=== PATIENT | female | born 1985 | race Caucasian/White ===

== ENCOUNTER 2019-11-28 01:46 | Emergency (ER) | payer BC, SELFPAY ==
[2019-11-28] MEDS ORDERED: LIDOCAINE JELLY 2%- 5 ML TUBE ONE (02:51)
[2019-11-28] MEDS ORDERED: LIDOCAINE VISCOUS 2% SOLN 15 ML UDC ONE (02:51)
[2019-11-28] MEDS ORDERED: LIDOCAINE 1% 20 ML MDV ONE (03:21)
--- NOTE | 2019-11-28 03:56 | EDPHYS ---
Physician Documentation [facility] Name: Alem Conte Age: 34 yrs Sex: Female : 1985 Arrival Date: 11/28/2019 Time: 01:50 Bed 3 Private MD: Rod Womack E ED Physician Donald Morales HPI: 11/27 02:58 This 34 yrs old Female presents to ER via Ambulatory with complaints of Lip mh7 Injury. 02:58 The patient presents with pain, Accidentally got hit in mouth while lifting a large mh7 tire. The problem is located in the inner upper lip. Onset: The symptoms/episode began/occurred today. Duration: The symptoms are continuous, and are unchanged since they started. Modifying factors: The symptoms are alleviated by nothing, the symptoms are aggravated by talking. Associated signs and symptoms: Pertinent positives: pain. Severity of symptoms: At their worst the symptoms were moderate, just prior to arrival, earlier today, in the emergency department the symptoms are unchanged. 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 - Social history:: Smoking status: Patient denies any tobacco usage or history of. ROS: 02:58 Constitutional: Negative for fever, chills, and weight loss, Eyes: Negative for injury, mh7 pain, redness, and discharge, Neck: Negative for injury, pain, and swelling, Cardiovascular: Negative for chest pain, palpitations, and edema, Respiratory: Negative for shortness of breath, cough, wheezing, and pleuritic chest pain, Abdomen/GI: Negative for abdominal pain, nausea, vomiting, diarrhea, and constipation, Back: Negative for injury and pain, : Negative for injury, bleeding, discharge, and swelling, MS/Extremity: Negative for injury and deformity, Skin: Negative for injury, rash, and discoloration, Neuro: Negative for headache, weakness, numbness, tingling, and seizure, Psych: Negative for depression, anxiety, suicide ideation, homicidal ideation, and hallucinations, Allergy/Immunology: Negative for hives, rash, and allergies, Endocrine: Negative for neck swelling, polydipsia, polyuria, polyphagia, and marked weight changes, Hematologic/Lymphatic: Negative for swollen nodes, abnormal bleeding, and unusual bruising. Exam: 02:58 Constitutional: This is a well developed, well nourished patient who is awake, alert, mh7 and in no acute distress. 02:58 Eyes: Pupils equal round and reactive to light, extra-ocular motions intact. Lids and lashes normal. Conjunctiva and sclera are non-icteric and not injected. Cornea within normal limits. Periorbital areas with no swelling, redness, or edema. Neck: Trachea midline, no thyromegaly or masses palpated, and no cervical lymphadenopathy. Supple, full range of motion without nuchal rigidity, or vertebral point tenderness. No Meningismus. Chest/axilla: Normal chest wall appearance and motion. Nontender with no deformity. No lesions are appreciated. Cardiovascular: Regular rate and rhythm with a normal S1 and S2. No gallops, murmurs, or rubs. Normal PMI, no JVD. No pulse deficits. Respiratory: Lungs have equal breath sounds bilaterally, clear to auscultation and percussion. No rales, rhonchi or wheezes noted. No increased work of breathing, no retractions or nasal flaring. Abdomen/GI: Soft, non-tender, with normal bowel sounds. No distension or tympany. No guarding or rebound. No evidence of tenderness throughout. Back: No spinal tenderness. No costovertebral tenderness. Full range of motion. Skin: Warm, dry with normal turgor. Normal color with no rashes, no lesions, and no evidence of cellulitis. MS/ Extremity: Pulses equal, no cyanosis. Neurovascular intact. Full, normal range of motion. Neuro: Awake and alert, GCS 15, oriented to person, place, time, and situation. Cranial nerves II-XII grossly intact. Motor strength 5/5 in all extremities. Sensory grossly intact. Cerebellar exam normal. Normal gait. Psych: Awake, alert, with orientation to person, place and time. Behavior, mood, and affect are within normal limits. 02:58 Head/face: Noted is 03:49 ENT: External ear(s): are unremarkable, Nose: is normal, Mouth: Lips: lacerated, mh7 approximately 1.5 cm(s), upper lip, Oral mucosa: normal, Gums: normal with healthy appearance, Tongue: is normal, Posterior pharynx: is normal, Dental exam: Braces-intact, Voice: is normal. Vital Signs: 02:15 BP 149 / 99; Pulse 110; Resp 18; Temp 99(TE); Pulse Ox 99% on R/A; Weight 81.65 kg (R); lp1 Pain 10/10; 03:00 BP 134 / 90; Pulse 72; Resp 16; Pulse Ox 100% on R/A; jb4 Laceration: 03:49 Wound Repair of 1.5cm ( 0.6in ) subcutaneous laceration to upper lip. Distal mh7 neuro/vascular/tendon intact. Anesthesia: Local anesthetic administered with 4 mls of 1% lidocaine. Wound prep: Simple cleansing by me, Wound irrigation by me. Skin closed with 3 4-0 Vicryl using interrupted sutures and sterile technique. Patient tolerated well. MDM: 02:50 Patient medically screened. 7 03:49 Differential diagnosis: Dental fracture, oral laceration, lip laceration. Data 7 reviewed: vital signs, nurses notes. Data interpreted: Pulse oximetry: on room air is 99 %. Interpretation: normal. Counseling: I had a detailed discussion with the patient and/or guardian regarding: the historical points, exam findings, and any diagnostic results supporting the discharge/admit diagnosis, the need for outpatient follow up, to return to the emergency department if symptoms worsen or persist or if there are any questions or concerns that arise at home. Administered Medications: 03:18 Drug: Lidocaine (1 %) 1 application {Note: Administered by ER physician. .} Volume: 20 jb4 ml; Route: Infiltration; 03:59 Follow up: Response: No adverse reaction jb4 Disposition: 11/28/19 03:55 Discharged to Home. Impression: Lip Laceration-upper. - Condition is Stable. - Discharge Instructions: Mouth Laceration, [id number], Laceration Care, Adult, [id number]. - Medication Reconciliation Form, Thank You Letter, Antibiotic Education, Prescription Opioid Use form. - Follow up: Private Physician; When: 1 - 2 days; Reason: Worsening of condition, Recheck today's complaints, Re-evaluation by your physician. - Problem is new. - Symptoms have improved. Signatures: aHnnah Ken RN RN lp1 Kaleb Swartz RN RN jb4 Donald Morales MD MD mh7 Corrections: (The following items were deleted from the chart) 03:59 03:55 11/28/2019 03:55 Discharged to Home. Impression: Lip Laceration-upper. Condition jb4 is Stable. Forms are Medication Reconciliation Form, Thank You Letter, Antibiotic Education, Prescription Opioid Use. Follow up: Private Physician; When: 1 - 2 days; Reason: Worsening of condition, Recheck today's complaints, Re-evaluation by your physician. Problem is new. Symptoms have improved. mh7
--- NOTE | 2019-11-28 03:56 | ER ---
Nurse's Notes [facility] Name: Alem Conte Age: 34 yrs Sex: Female : 1985 Arrival Date: 11/28/2019 Time: 01:50 Bed 3 Private MD: Rod Womack E Diagnosis: Lip Laceration-upper Presentation: 11/27 02:15 Chief complaint: Patient states: Patient was attempted to flip large tire and came back lp1 and hit her, top lip stuck to braces of front 2 teeth. Coronavirus screen: Proceed with normal triage. Ebola Screen: No symptoms or risks identified at this time. Initial Sepsis Screen: Does the patient meet any 2 criteria? No. Patient's initial sepsis screen is negative. Does the patient have a suspected source of infection? No. Patient's initial sepsis screen is negative. Risk Assessment: Do you want to hurt yourself or someone else? Patient reports no desire to harm self or others. Onset of symptoms was November 28, 2019. 02:15 Method Of Arrival: Ambulatory lp1 02:15 Acuity: EVELIO 4 lp1 Triage Assessment: 02:18 General: Appears in no apparent distress. Behavior is anxious. General: Top inner lip lp1 on brace of front tooth. Pain: Complains of pain in mouth. 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 - Social history:: Smoking status: Patient denies any tobacco usage or history of. Screenin:17 Abuse screen: Denies threats or abuse. Denies injuries from another. Nutritional lp1 screening: No deficits noted. Tuberculosis screening: No symptoms or risk factors identified. Fall Risk None identified. Assessment: 02:45 General: Appears in no apparent distress. uncomfortable, Behavior is calm, cooperative, jb4 appropriate for age. Pain: Complains of pain in mouth Pain does not radiate. Pain currently is 10 out of 10 on a pain scale. Neuro: Level of Consciousness is awake, alert, obeys commands, Oriented to person, place, time, situation. Cardiovascular: Patient's skin is warm and dry. Respiratory: Airway is patent Respiratory effort is even, unlabored, Respiratory pattern is regular, symmetrical. GI: No signs and/or symptoms were reported involving the gastrointestinal system. : No signs and/or symptoms were reported regarding the genitourinary system. EENT: No signs and/or symptoms were reported regarding the EENT system. Derm: Skin is intact, Skin is pink, warm \T\ dry. Musculoskeletal: Circulation, motion, and sensation intact. Range of motion: intact in all extremities. 03:54 Reassessment: Patient appears in no apparent distress at this time. Patient and/or jb4 family updated on plan of care and expected duration. Pain level reassessed. Patient is alert, oriented x 3, equal unlabored respirations, skin warm/dry/pink. Vital Signs: 02:15 BP 149 / 99; Pulse 110; Resp 18; Temp 99(TE); Pulse Ox 99% on R/A; Weight 81.65 kg (R); lp1 Pain 10/10; 03:00 BP 134 / 90; Pulse 72; Resp 16; Pulse Ox 100% on R/A; jb4 ED Course: 01:50 Patient arrived in ED. es 01:50 Rod Womack MD is Private Physician. es 02:16 Triage completed. lp1 02:16 Arm band placed on. lp1 02:18 Patient has correct armband on for positive identification. lp1 02:18 Patient did not have IV access during this emergency room visit. lp1 02:23 Kaleb Swartz RN is Primary Nurse. jb4 02:39 Donald Morales MD is Attending Physician. 7 03:54 Assist provider with laceration repair on upper lip that was 2.5 cm. or less using jb4 sutures. Set up tray. Performed by Rod Womack MD Patient tolerated well. Administered Medications: 03:18 Drug: Lidocaine (1 %) 1 application {Note: Administered by ER physician. .} Volume: 20 jb4 ml; Route: Infiltration; 03:59 Follow up: Response: No adverse reaction jb4 Outcome: 03:55 Discharge ordered by . 7 03:59 Discharged to home ambulatory. jb4 03:59 Condition: stable 03:59 Discharge instructions given to patient, Instructed on discharge instructions, follow up and referral plans. Demonstrated understanding of instructions, follow-up care. 03:59 Patient left the ED. jb4 Signatures: Heidi Fulton Laura RN RN lp1 Kaleb Swartz RN RN jb4 Donald Morales MD MD mh7
[2019-11-28 04:12] VITALS: BP 134/90; O2SAT 100
[2019-11-28 04:14] VITALS: TEMP 99
== END 2019-11-28 03:59 | disposition home or self-care (01) ==
LOC: ER 01:46
PROC: 0CQ0XZZ Repair Upper Lip, External Approach (ICD-10-PCS; principal; 2019-11-28)
DX: S01.511A Laceration without foreign body of lip, initial encounter (principal); W22.8XXA Striking against or struck by other objects, initial encounter; Y93.9 Activity, unspecified; Y92.9 Unspecified place or not applicable; Z88.0 Allergy status to penicillin; Z88.1 Allergy status to other antibiotic agents; F41.9 Anxiety disorder, unspecified
CPT/HCPCS: 99283

== ENCOUNTER 2020-10-26 01:40 | Emergency (ER) | payer SELFPAY ==
--- OUTSIDE RECORDS SUMMARY | 2020-10-26 01:43 | XMS REPORT | Continuity of Care Document ---
:1985 Author Organization [facility] t Address [address] [place] [address] Dr. Schrader [address] [place] [id number] Care Team Providers Name Role Phone Unavailable Unavailable Unavailable Problems This patient has no known problems. Allergies, Adverse Reactions, Alerts This patient has no known allergies or adverse reactions. Medications This patient has no known medications. Procedures This patient has no known procedures. Results This patient has no known results.
[2020-10-26] MEDS ORDERED: ONDANSETRON 4 MG/2 ML VIAL ONE (02:35)
[2020-10-26] MEDS ORDERED: NA CHLORIDE 0.9% 1,000 ML ONE (02:35)
[2020-10-26] MEDS ORDERED: MORPHINE 4 MG/ML SYR ONE (02:35)
[2020-10-26] MEDS ORDERED: CEFTRIAXONE/SWI 1gm 1 GM/10 ML SYR ONE (02:38)
[2020-10-26 02:56] LABS: Absolute Lymphocytes (CBC) 2.4 K/uL (0.7-4.9); Basophils % 0.7 % (0-1.3); Hematocrit 37.4 % (36.0-45.0); Lymphocytes % 34.1 % (15.3-44.8); MPV 9.7 fL (7.6-11.3); RBC Red Blood Cell Count 4.29 M/uL (3.86-4.86)
[2020-10-26 03:04] LABS: Albumin 4.4 g/dL (3.4-5.0); Bilirubin Direct 0.2 mg/dL (0-0.2); Bilirubin Total 0.7 mg/dL (0.2-1.0); Potassium 3.6 mmol/L (3.5-5.1); Protein, Total 7.8 g/dL (6.4-8.2)
[2020-10-26 03:26] LABS: Urine Blood 3+ (Negative); Urine Glucose Negative (Negative); Urine Protein 2+ (Negative); Urine Specific Gravity >=1.030 (1.005-1.030); Urine pH 5.5 (5.0-7.0)
--- NOTE | 2020-10-26 04:40 | EDPHYS ---
Physician Documentation [facility] Name: Alem Conte Age: 35 yrs Sex: Female : 1985 Arrival Date: 10/26/2020 Time: 01:44 Bed 14 Private MD: ED Physician Basilio Marshall HPI: 10/26 02:10 This 35 yrs old Female presents to ER via Ambulatory with complaints of ma2 Possible Kidney Stone, Flank Pain. 02:10 The patient complains of pain in the left mid back. Onset: The symptoms/episode ma2 began/occurred gradually, 2 day(s) ago. Associated signs and symptoms: Pertinent negatives: dysuria, urinary frequency, hematuria, pain radiating to the lower extremities. Severity of pain: At its worst the pain was moderate in the emergency department the pain is unchanged. The patient has experienced similar episodes in the past. 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 - Social history:: Patient/guardian denies using alcohol, street drugs, The patient lives with spouse, Smoking status: Patient/guardian denies using tobacco. - Family history:: not pertinent. ROS: 02:10 Constitutional: Negative for fever, chills, and weight loss. ma2 02:10 All other systems are negative. Exam: 02:10 Constitutional: This is a well developed, well nourished patient who is awake, alert, ma2 and in no acute distress. ENT: Nares patent. No nasal discharge, no septal abnormalities noted. Tympanic membranes are normal and external auditory canals are clear. Oropharynx with no redness, swelling, or masses, exudates, or evidence of obstruction, uvula midline. Mucous membranes moist. Neck: Trachea midline, no thyromegaly or masses palpated, and no cervical lymphadenopathy. Supple, full range of motion without nuchal rigidity, or vertebral point tenderness. No Meningismus. Chest/axilla: Normal chest wall appearance and motion. Nontender with no deformity. No lesions are appreciated. Cardiovascular: Regular rate and rhythm with a normal S1 and S2. No gallops, murmurs, or rubs. Normal PMI, no JVD. No pulse deficits. Respiratory: Lungs have equal breath sounds bilaterally, clear to auscultation and percussion. No rales, rhonchi or wheezes noted. No increased work of breathing, no retractions or nasal flaring. Abdomen/GI: Soft, non-tender, with normal bowel sounds. No distension or tympany. No guarding or rebound. No evidence of tenderness throughout. Skin: Warm, dry with normal turgor. Normal color with no rashes, no lesions, and no evidence of cellulitis. MS/ Extremity: Pulses equal, no cyanosis. Neurovascular intact. Full, normal range of motion. Neuro: Awake and alert, GCS 15, oriented to person, place, time, and situation. Cranial nerves II-XII grossly intact. Motor strength 5/5 in all extremities. Sensory grossly intact. Cerebellar exam normal. Normal gait. Vital Signs: 02:03 BP 137 / 88; Pulse 104; Resp 16 S; Temp 98(O); Pulse Ox 99% on R/A; Weight 77.56 kg bb (R); Height 5 ft. 2 in. (157.48 cm) (R); Pain 9/10; 03:42 BP 143 / 91; Pulse 80; Resp 17; Pulse Ox 95% on R/A; Pain 6/10; ad5 04:54 BP 126 / 70; Pulse 85; Resp 17 S; Pulse Ox 100% on R/A; Pain 0/10; bb 02:03 Body Mass Index 31.28 (77.56 kg, 157.48 cm) MDM: 01:55 Patient medically screened. ma2 02:10 Differential diagnosis: nephrolithiasis, pyelonephritis, UTI. Data reviewed: vital ma2 signs, nurses notes. Counseling: I had a detailed discussion with the patient and/or guardian regarding: the historical points, exam findings, and any diagnostic results supporting the discharge/admit diagnosis, the presence of at least one elevated blood pressure reading (>120/80) during this emergency department visit, the need for outpatient follow up. Response to treatment: the patient's symptoms have markedly improved after treatment. 10/26 02:08 Order name: Basic Metabolic Panel ma2 10/26 02:08 Order name: CBC with Diff ma2 10/26 02:08 Order name: Hepatic Function; Complete Time: 03:31 ma2 10/26 02:08 Order name: Lipase; Complete Time: 03:31 ma2 10/26 02:08 Order name: Urine Microscopic Only ma2 10/26 02:09 Order name: Basic Metabolic Panel; Complete Time: 03:31 EDMS 10/26 02:08 Order name: CT Stone Protocol or2 10/26 02:09 Order name: CBC with Automated Diff; Complete Time: 03:31 EDMS 10/26 03:26 Order name: Urine Dipstick-Ancillary; Complete Time: 03:31 EDMS 10/26 03:30 Order name: Urine --Ancillary (enter results) 3 10/26 04:43 Order name: Urine Culture EDMS 10/26 02:08 Order name: IV Saline Lock; Complete Time: 02:17 ma2 10/26 02:08 Order name: NPO; Complete Time: 02:17 or2 10/26 02:08 Order name: Urine Dipstick-Ancillary (obtain specimen); Complete Time: 03:43 ma2 10/26 02:08 Order name: Urine Test (obtain specimen); Complete Time: 03:43 ma2 Administered Medications: 02:30 Drug: Rocephin (cefTRIAXone) 1 grams Route: IV; Rate: calculated rate; Site: right ad5 antecubital; 03:18 Follow up: IV Status: Completed infusion; IV Intake: 1000ml ad5 03:19 Follow up: IV Status: Completed infusion; IV Intake: 10ml ad5 02:31 Drug: Zofran (Ondansetron) 4 mg Route: IVP; Site: right antecubital; ad5 03:17 Follow up: Response: No adverse reaction ad5 02:32 Drug: NS 0.9% 1000 ml Route: IV; Rate: 1000 ml; Site: right antecubital; ad5 03:18 Follow up: IV Status: Completed infusion; IV Intake: 1000ml ad5 02:32 Drug: morphine 4 mg Route: IVP; Site: right antecubital; ad5 03:19 Follow up: Response: No adverse reaction; Pain is decreased ad5 04:50 Not Given (Patient Refused): Phenergan (promethazine) 12.5 mg IVP once bb Disposition: 10/26/20 04:39 Discharged to Home. Impression: Calculus of kidney - right side, Acute cystitis without hematuria - left kideny infection . - Condition is Stable. - Discharge Instructions: Urinary Tract Infection, Adult, Dietary Guidelines to Help Prevent Kidney Stones. - Prescriptions for Diclofenac Sodium 75 mg Oral Tablet Sustained Release - take 1 tablet by ORAL route 2 times per day; 30 tablet. Flomax 0.4 mg Oral Capsule, Sust. Release 24 hr - take 1 capsule by ORAL route once daily 1/2 hour following the same meal each day; 30 capsule. - Medication Reconciliation Form, Thank You Letter, Antibiotic Education, Prescription Opioid Use form. - Follow up: Yehuda Mendez MD; When: Tomorrow; Reason: Continuance of care. Signatures: Dispatcher [employer] Tana Álvarez RN RN Basilio Chavez MD MD ma2 Dustin Garvey Corrections: (The following items were deleted from the chart) 04:55 04:39 10/26/2020 04:39 Discharged to Home. Impression: Calculus of kidney - right side; bb Acute cystitis without hematuria - left kideny infection . Condition is Stable. Prescriptions for Diclofenac Sodium 75 mg Oral Tablet Sustained Release - take 1 tablet by ORAL route 2 times per day; 30 tablet. and Forms are Medication Reconciliation Form, Thank You Letter, Antibiotic Education, Prescription Opioid Use. Follow up: Yehuda Mendez; When: Tomorrow; Reason: Continuance of care. ma2
--- NOTE | 2020-10-26 04:40 | ER ---
Nurse's Notes [facility] Name: Alem Conte Age: 35 yrs Sex: Female : 1985 Arrival Date: 10/26/2020 Time: 01:44 Bed 14 Private MD: Diagnosis: Calculus of kidney-right side;Acute cystitis without hematuria-left kideny infection Presentation: 10/26 02:03 Chief complaint: Patient states: she has been having intermittent left flank pain for bb approx 6 weeks then noticed she was bleeding only after she runs which she does 3 times a week she denies burning with urination she saw her PCP and was put on nitrofurantoin and cipro on the 12 of September. Coronavirus screen: At this time, the client does not indicate any symptoms associated with coronavirus-19. Ebola Screen: No symptoms or risks identified at this time. Initial Sepsis Screen: Does the patient meet any 2 criteria? No. Patient's initial sepsis screen is negative. Does the patient have a suspected source of infection? No. Patient's initial sepsis screen is negative. Risk Assessment: Do you want to hurt yourself or someone else? Patient reports no desire to harm self or others. Onset of symptoms was September 2020. 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 - Social history:: Patient/guardian denies using alcohol, street drugs, The patient lives with spouse, Smoking status: Patient/guardian denies using tobacco. - Family history:: not pertinent. Screenin:30 Abuse screen: Denies threats or abuse. Nutritional screening: No deficits noted. bb Tuberculosis screening: No symptoms or risk factors identified. Fall Risk None identified. Assessment: 02:30 General: Appears in no apparent distress. uncomfortable, Behavior is calm, cooperative. bb Pain: Complains of pain in left mid back Pain currently is 9 out of 10 on a pain scale. Neuro: Level of Consciousness is awake, alert, obeys commands, Oriented to person, place, time, situation. Cardiovascular: Heart tones present Capillary refill < 3 seconds Patient's skin is warm and dry. Edema is absent. Respiratory: Respiratory effort is even, unlabored, Respiratory pattern is regular, Breath sounds are clear bilaterally. GI: Abdomen is round Bowel sounds present X 4 quads. Abd is soft X 4 quads. : Reports hematuria after running. Derm: Skin is pink, warm \T\ dry. Musculoskeletal: Circulation, motion, and sensation intact. 03:20 Reassessment: Patient and/or family updated on plan of care and expected duration. Pain ad5 level reassessed. Patient is alert, oriented x 3, equal unlabored respirations, skin warm/dry/pink. Patient states feeling better. 04:41 Reassessment: Patient appears in no apparent distress at this time. Patient and/or ad5 family updated on plan of care and expected duration. Pain level reassessed. Patient is alert, oriented x 3, equal unlabored respirations, skin warm/dry/pink. Patient states feeling better. 04:51 Reassessment: Patient is alert, oriented x 3, equal unlabored respirations, skin bb warm/dry/pink. Dr Chew at bedside for discussion of findings and recommendations pt to be discharged home with RX and follow/up with provider. Pt verbalized understanding of and agrees to plan of care discharge instructions given pt ambulated with steady gait to exit. Vital Signs: 02:03 BP 137 / 88; Pulse 104; Resp 16 S; Temp 98(O); Pulse Ox 99% on R/A; Weight 77.56 kg bb (R); Height 5 ft. 2 in. (157.48 cm) (R); Pain 9/10; 03:42 BP 143 / 91; Pulse 80; Resp 17; Pulse Ox 95% on R/A; Pain 6/10; ad5 04:54 BP 126 / 70; Pulse 85; Resp 17 S; Pulse Ox 100% on R/A; Pain 0/10; bb 02:03 Body Mass Index 31.28 (77.56 kg, 157.48 cm) bb ED Course: 01:44 Patient arrived in ED. bp1 01:55 Basilio Marshall MD is Attending Physician. ma2 02:09 Triage completed. bb 02:10 Arm band placed on Patient placed in an exam room, on a stretcher, on pulse oximetry. bb 02:10 Initial lab(s) drawn, by me, sent to lab. Inserted saline lock: 20 gauge in right bb antecubital area, using aseptic technique. Blood collected. 02:12 Dustin Garvey is Primary Nurse. ad5 02:30 Patient has correct armband on for positive identification. Placed in gown. Bed in low bb position. Call light in reach. Side rails up X 1. Pulse ox on. NIBP on. 02:33 Basic Metabolic Panel Sent. ad5 02:33 CBC with Diff Sent. ad5 02:33 Hepatic Function Sent. ad5 02:33 Lipase Sent. ad5 02:33 Basic Metabolic Panel Sent. ad5 02:34 CBC with Automated Diff Sent. ad5 03:44 CT Stone Protocol Sent. ad5 03:44 Urine Microscopic Only Sent. ad5 03:45 CT Stone Protocol In Process Unspecified. EDMS 04:37 Yehuda Mendez MD is Referral Physician. ma2 04:39 Urine --Ancillary (enter results) Sent. ad5 04:53 No provider procedures requiring assistance completed. bb 04:54 IV discontinued, intact, bleeding controlled, No redness/swelling at site. Pressure bb dressing applied. Administered Medications: 02:30 Drug: Rocephin (cefTRIAXone) 1 grams Route: IV; Rate: calculated rate; Site: right ad5 antecubital; 03:18 Follow up: IV Status: Completed infusion; IV Intake: 1000ml ad5 03:19 Follow up: IV Status: Completed infusion; IV Intake: 10ml ad5 02:31 Drug: Zofran (Ondansetron) 4 mg Route: IVP; Site: right antecubital; ad5 03:17 Follow up: Response: No adverse reaction ad5 02:32 Drug: NS 0.9% 1000 ml Route: IV; Rate: 1000 ml; Site: right antecubital; ad5 03:18 Follow up: IV Status: Completed infusion; IV Intake: 1000ml ad5 02:32 Drug: morphine 4 mg Route: IVP; Site: right antecubital; ad5 03:19 Follow up: Response: No adverse reaction; Pain is decreased ad5 04:50 Not Given (Patient Refused): Phenergan (promethazine) 12.5 mg IVP once bb Intake: 03:18 IV: 1000ml; Total: 1000ml. ad5 03:18 IV: 1000ml; Total: 2000ml. ad5 03:19 IV: 10ml; Total: 2010ml. ad5 Outcome: 04:39 Discharge ordered by . elvia 04:54 Discharged to home ambulatory. bb 04:54 Condition: stable 04:54 Discharge instructions given to patient, Instructed on discharge instructions, follow up and referral plans. medication usage, Demonstrated understanding of instructions, follow-up care, medications, Prescriptions given X 2. 04:55 Patient left the ED. bb Signatures: Dispatcher [employer] EDMS Tana Wooten RN RN Basilio Chavez MD MD ma2 Paniauga, Brittany bp1 Davidson, Andrea ad5
[2020-10-26 04:42] LABS: Urine Bacteria <20 /HPF (<20); Urine RBC >50 /HPF (NONE SEEN); Urine Urothelial Cells <5 /HPF (NONE SEEN)
[2020-10-26 04:42] LABS: Urine Specific Gravity/Preg >1.030 (1.005-1.030)
[2020-10-26 05:16] VITALS: TEMP 98
[2020-10-26 05:33] VITALS: BP 126/70; O2SAT 100
--- NOTE | 2020-10-26 11:21 | RAD REPORT ---
EXAM DESCRIPTION: CT Abdomen and Pelvis Without Intravenous Contrast CLINICAL HISTORY: The patient is 35 years old and is Female; ABD PAIN TECHNIQUE: Axial computed tomography images of the abdomen and pelvis without intravenous contrast. Sagittal and coronal reformatted images were created and reviewed. This CT exam was performed usi ng one or more of the following dose reduction techniques: automated exposure control, adjustment o f the mA and/or kV according to patient size, and/or use of iterative reconstruction technique. COMPARISON: No relevant prior studies available. FINDINGS: Lung bases: Unremarkable. No mass. No consolidation. ABDOMEN: Liver: Unremarkable. Gallbladder and bile ducts: Distended gallbladder. Suspect faint sludge or noncalcified stones. No ductal dilation. Pancreas: Unremarkable. No ductal dilation. Spleen: Unremarkable. No splenomegaly. Adrenals: Unremarkable. No mass. Kidneys and ureters: Bilateral nephrolithiasis. There is a large calculus in the right renal pel vis measuring 30 x 15 x 27 mm in size. No hydronephrosis. No distal ureter stones visualized. Stomach and bowel: No bowel dilatation or obstruction. No bowel wall thickening. No gastric wall thickening. PELVIS: Appendix: The visualized appendix is normal. No pericecal inflammation to suggest acute appendic itis. Bladder: Bladder is empty. No stones. Reproductive: 1.6 cm left ovarian cyst. ABDOMEN and PELVIS: Intraperitoneal space: Unremarkable. No free air. No significant fluid collection. Bones/joints: Vertebral Schmorl's nodes. No acute fracture visualized. No dislocation. Soft tissues: Unremarkable. Vasculature: Unremarkable. No abdominal aortic aneurysm. Lymph nodes: No pathologically enlarged lymph nodes. Tubes, lines and devices: Intrauterine device. IMPRESSION: 1. Bilateral nephrolithiasis. There is a large calculus in the right renal pelvis heladio uring 30 x 15 x 27 mm in size. No hydronephrosis. 2. Distended gallbladder. Suspect faint sludge or noncalcified stones. 3. 1.6 cm left ovarian cyst. No follow-up imaging is recommended. Reference: J Am Gifty Radiol 2013;10:[id number] Electronically signed by: Delia Smith MD 10/26/2020 4:12 AM CDT Due to temporary technical issues with the PACS/Fluency reporting system, reports are being signed by the in house radiologist without review as a courtesy to ensure prompt reporting. The interpreting r adiologist is fully responsible for the content of the report.
== END 2020-10-26 04:55 | disposition home or self-care (01) ==
LOC: ER 01:40
DX: N20.0 Calculus of kidney (principal); N30.00 Acute cystitis without hematuria; Z88.0 Allergy status to penicillin; Z88.1 Allergy status to other antibiotic agents; Z88.2 Allergy status to sulfonamides
CPT/HCPCS: 36415; 74176; 76377; 80048; 80076; 81003; 81015; 81025; 83690; 85025; 87086; 87088; 96365; 96375; 99284; J0696; J2405; J7030

== ENCOUNTER 2023-02-09 19:52 | Emergency (ER) | payer BC, OTHER ==
--- OUTSIDE RECORDS SUMMARY | 2023-02-09 19:59 | XMS REPORT | Continuity of Care Document ---
:1985 Author Organization [facility] t Address [address] [place] [address]. [address] [place] [address] Care Team Providers Name Role Phone Carlos Hoyt Primary Care Physician Kaleb Zhang MD Attending Clinician Angelia Espinoza Attending Clinician CARLOS KENNY Attending Clinician Unavailable Maday Hernández Attending Clinician DANIELLA FITZGERALD Attending Clinician Unavailable Carlos Hoyt Attending Clinician Adin Contreras MD Attending Clinician Daniella Fitzgerald MD Attending Clinician Doctor Unassigned, [place] Attending Clinician Unavailable Lab, Ang - Db Attending Clinician Unavailable ANGELIA BANSAL Attending Clinician Unavailable ANTIONETTE CAPUTO Attending Clinician Unavailable JEAN DOUGHERTY Attending Clinician Unavailable HERBERT CHAKRABORTY Attending Clinician Unavailable HERBERT CHAKRABORTY Admitting Clinician Unavailable ANTIONETTE CAPUTO Admitting Clinician Unavailable Payers Payer Name Policy Type Policy Number Effective Date Expiration Date [id number] 2021 BLUE/ESSENTIALS 00:00:00 FORMERLY [facility] [id number] 2016 CHOICE MEDICAID 00:00:00 Problems Condition Condition Condition Status Onset Resolution Last Treating Co mments Source Name Details Category Date Date Treatment Clinician Date Prediabete Prediabete Disease Active 2021-06 U deborah s s 06-24 ity of 00:00: [place] [facility] Elevated Elevated Disease Active 2021-06 [place] cholestero cholestero 06-24 it y of l l 00:00: [place] [facility] Branch Acute Acute Disease Active 2020-[address] [facility] febrile febrile 07-20 [facility] illness illness 00:00: [facility] 00 [place] Nephrolith Nephrolith Disease Active 2020-[address] iasis iasis 07-15 [facility] 00:00: [facility] [place] Breakthrou Breakthrou Disease Active 2017-06 U deborah gh gh 1 ity of bleeding bleeding 00:00: [place] with IUD with IUD 00 Medica l [place] Encounter Encounter Disease Active 2017-06 Uni vers for for 0-24 [place] contracept contracept [place] margie margie 00 Medical management management Br anch , , unspecifie unspecifie d type d type Anemia of Anemia of Disease Active 2017-06 Uni vers mother in mother in 0-24 [place] , , [place] 00 Me dical condition condition Bran ch Needs flu Needs flu Disease Active 2017-06 Uni vers shot shot 0-24 ity of 00:00: [place] 00 [facility] Branch BMI BMI Disease Active Univers 33.0-33.9, 33.0-33.9, 9-06 it y of adult adult 00:00: [place] [facility] GDM, class GDM, class Disease Active U deborah A2 A2 8-23 ity of 00:00: [place] [facility] Branch Obesity Obesity Disease Active Univers 4-20 ity of 00:00: [place] [facility] Branch Screening Screening Disease Active Overview: Univers examinatio examinatio 6-30 Formattin ity of n for STD n for STD 00:00: g of this [place] (sexually (sexually 00 note Medi sindhu transmitte transmitte might be Branch d disease) d disease) different from the original. 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 Hook Utility Allergies, Adverse Reactions, Alerts Allergy Allergy Status Severity Reaction(s) Onset Inactive Treating Comm ents Source Name Type Date Date Clinician Shellfis Propensi Active Other - See With U nivers h ty to comments - crawfish; ity o f Derived adverse 00:00: occasiona [place] reaction 00 l Medical s tachycard Branch ia SHELLFIS DRUG Active Other-Cmnt Univ ers H INGREDI 5-24 ity of DERIVED 00:00: [place] 00 Medical Branch Penicill Drug Active Anaphylaxis, migraines [facility] ins Allergy Nausea And 6-30 [facility] Vomiting, 00:00: Medical Other (See 00 Center Comments) Sulfa Drug Active Nausea And [facility] (Sulfona Allergy Vomiting, 6-30 [facility] s mide Anaphylaxis 00:00: Medic al Antibiot 00 Center ics) Amoxicil Propensi Active Anaphylaxis U nivers olinda ty to 6-30 ity of adverse 00:00: [place] reaction 00 Medical s Branch Penicill Drug Active Other - See migraines Univers ins Allergy comments 6-30 Other ity of 00:00: reaction( [place] 00 s): Other Medical (See Branch Comments) migraines PENICILL Drug Active High Anaphylaxis Uni vers INS Class 6-30 ity of 00:00: [place] 00 Medical Branch SULFA Drug Active High Anaphylaxis Unive rs (SULFONA Class 6-30 ity of MIDE 00:00: [place] ANTIBIOT 00 Medical ICS) Branch AMOXICIL DRUG Active Anaphylaxis Uni vers OLINDA INGREDI 6-30 ity of 00:00: [place] 00 Medical Branch PENICILL Allergy Active High Anaphylaxis [facility] INS 6-30 [facility] 00:[facility]: Medical 00 Center SULFA Allergy Active High N\T\V [facility] (SULFONA 6-30 [facility] MIDE 00:00: Medical ANTIBIOT 00 Center ICS) NO KNOWN Allergy Active [facility] ALLERGIE S Social History Social Habit Start Date Stop Date Quantity Comments Source Gender identity Universit y [facility] Sexual orientation Univer sity [facility] Exposure to 2022-08-26 2022-09-05 Not sure [facility] SARS-CoV-2 (event) 00:00:00 12:42:00 [facility] History of Social 2022-04-24 2022-04-24 Univers ity of function 00:00:00 00:00:00 [facility] Alcohol intake 2021-05-15 2021-05-15 Ex-drinker [place]LL [place] 00:00:00 00:00:00 (finding) [facility] Tobacco use and 2021-05-14 2021-05-14 Smokeless [place]LL [place] exposure 00:00:00 00:00:00 tobacco non-user [facility] Tobacco Comment 2021-05-14 2021-05-14 quit 2017 CORNELL [place] 00:00:00 00:00:00 [facility] History of tobacco 2001-03-26 2016-08-18 Cigarette Smoker University of use 00:00:00 00:00:00 [facility] Sex Ass[birth year] At [birth year] COR[place] 00:00:00 00:00:00 [facility] Smoking Status Start Date Stop Date Source Ex-smoker 2022-04-24 00:00:00 2022-04-24 00:00:00 [facility] Medications Ordered Filled Start Stop Current Ordering Indication Dosage Frequency Signature Comments Components Source Medication Medication Date Date Medication? Clinician (SIG) Name Name escitalopra Yes [id number] 20mg Take 1 Univers m oxalate 7-31 tablet by ity o f 20 mg 00:00: mouth in [place] tablet 00 the Medical morning. Branch busPIRone Yes [id number] 10mg Take 1 U nivers 10 mg 6-05 tablet by ity of tablet 00:00: mouth 2 [place] 00 (two) Medical times Branch daily as needed for Other (anxiety). busPIRone Yes [id number] 10mg Take 1 U nivers 10 mg 6-05 tablet by ity of tablet 00:00: mouth 2 [place] 00 (two) Medical times Branch daily as needed for Other (anxiety). busPIRone Yes [id number] 10mg Take 1 U nivers 10 mg 6-05 tablet by ity of tablet 00:00: mouth 2 [place] 00 (two) Medical times Branch daily as needed for Other (anxiety). ESCITALOPRA Yes [id number] TAKE ONE Univers M OXALATE 6-01 (1) ity of 20 mg 00:00: TABLET(S) [place] tablet 00 BY MOUTH Medical IN THE [place] MORNING. ESCITALOPRA 2022-0 Yes [id number] TAKE ONE Univers M OXALATE 11-21 (1) ity of 20 mg 00:00: TABLET(S) [place] tablet 00 BY MOUTH Medical IN THE [place] MORNING. ESCITALOPRA 2022-0 Yes [id number] TAKE ONE Univers M OXALATE 11-21 (1) ity of 20 mg 00:00: TABLET(S) [place] tablet 00 BY MOUTH Medical IN THE [place] MORNING. ESCITALOPRA 2022-0 2023- No [id number] TAKE ONE Univers M OXALATE 11-21 0728 (1) ity of 20 mg 00:00: 00:00 TABLET(S) [place] tablet 00 :00 BY MOUTH Medical IN THE [place] MORNING. buPROPion 2022-0 Yes [id number] 150mg Take 1 Univers XL 4-19 tablet by ity of (WELLBUTRIN 00:00: mouth in [place] XL) 150 mg 00 the Medical 24 hr morning. Branch tablet busPIRone 2022-0 Yes [id number] 10mg Take 1 U nivers 10 mg 4-19 tablet by ity of tablet 00:00: mouth 2 00 (two) Medical times [place] daily as needed for Other (anxiety). buPROPion 2022-0 Yes [id number] 150mg Take 1 Univers XL 4-19 tablet by ity of (WELLBUTRIN 00:00: mouth in [place] XL) 150 mg 00 the Medical 24 hr morning. Branch tablet busPIRone 2022-0 Yes [id number] 10mg Take 1 U nivers 10 mg 4-19 tablet by ity of tablet 00:00: mouth 2 [place] 00 (two) Medical times [place] daily as needed for Other (anxiety). buPROPion 2022-0 Yes [id number] 150mg Take 1 Univers XL 4-19 tablet by ity of (WELLBUTRIN 00:00: mouth in [place] XL) 150 mg 00 the Medical 24 hr morning. Branch tablet busPIRone 2022-0 Yes [id number] 10mg Take 1 U nivers 10 mg 4-19 tablet by ity of tablet 00:00: mouth 2 [place] 00 (two) Medical times [place] daily as needed for Other (anxiety). buPROPion 2022-0 Yes [id number] 150mg Take 1 Univers XL 4-19 tablet by ity of (WELLBUTRIN 00:00: mouth in [place] XL) 150 mg 00 the Medical 24 hr morning. Branch tablet buPROPion 2022-0 Yes [id number] 150mg Take 1 Univers XL 4-19 tablet by ity of (WELLBUTRIN 00:00: mouth in [place] XL) 150 mg 00 the Medical 24 hr morning. Branch tablet buPROPion 2022-0 Yes [id number] 150mg Take 1 Univers XL 4-19 tablet by ity of (WELLBUTRIN 00:00: mouth in [place] XL) 150 mg 00 the Medical 24 hr morning. Branch tablet busPIRone 2022- No [id number] 10mg Take 1 Univers 10 mg 4-19 - tablet by ity of tablet 00:00: 00:00 mouth 2 [place] 00 :00 (two) Medical times Branch daily as needed for Other (anxiety). escitalopra Yes [id number] 20mg Take 1 Univers m oxalate 4-18 tablet by ity o f 20 mg 00:00: mouth in [place] tablet 00 the Medical morning. Branch MUST BE SEEN FOR FURTHER REFILLS escitalopra Yes [id number] 20mg Take 1 Univers m oxalate 4-18 tablet by ity o f 20 mg 00:00: mouth in [place] tablet 00 the Medical morning. Branch MUST BE SEEN FOR FURTHER REFILLS escitalopra Yes [id number] 20mg Take 1 Univers m oxalate 4-18 tablet by ity o f 20 mg 00:00: mouth in [place] tablet 00 the Medical morning. Branch MUST BE SEEN FOR FURTHER REFILLS escitalopra 2022- No [id number] 20mg Take 1 Univers m oxalate 4-18 - tablet by ity of 20 mg 00:00: 00:00 mouth in [place] tablet 00 :00 the Medical morning. 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 [facility] 04/15/2018 levonorgest 2022-0 3- No 1{devic 1 Device Univers reL 14 3-17 03-17 e} by ity of mcg/24 hrs 00:35: 00:00 Intrauteri [place] (3 yrs) 15 :00 ne route Medical 13.5 mg IUD once now. [facility] 04/15/2018 escitalopra 2022-0 Yes [id number] 20mg Take 1 Univers m oxalate 1-24 tablet by ity o f 20 mg 00:00: mouth in [place] tablet 00 the Medical morning. Branch escitalopra 2022-0 Yes [id number] 20mg Take 1 Univers m oxalate 1-24 tablet by ity o f 20 mg 00:00: mouth in [place] tablet 00 the Medical morning. Branch escitalopra 2022-0 Yes [id number] 20mg Take 1 Univers m oxalate 1-24 tablet by ity o f 20 mg 00:00: mouth in [place] tablet 00 the Medical morning. Branch escitalopra 2022-0 Yes [id number] 20mg Take 1 Univers m oxalate 1-24 tablet by ity o f 20 mg 00:00: mouth in [place] tablet 00 the Medical morning. [place] escitalopra 0 Yes [id number] 20mg Take 1 Univers m oxalate 1-24 tablet by ity o f 20 mg 00:00: mouth in [place] tablet 00 the Medical morning. [place] escitalopra 0 Yes [id number] 20mg Take 1 Univers m oxalate 1-24 tablet by ity o f 20 mg 00:00: mouth in [place] tablet 00 the Medical morning. [place] escitalopra 2022- No [id number] 20mg Take 1 Univers m oxalate 1-24 04-15 tablet by ity of 20 mg 00:00: 00:00 mouth in [place] tablet 00 :00 the Medical morning. [place] levonorgest 2021-06 Yes 1{devic 1 Device Univers reL 14 2-23 e} by ity of mcg/24 hrs 15:27: Intrauteri [place] (3 yrs) 16 ne route Medical 13.5 mg IUD once now. [facility] 04/15/2018 levonorgest 2021-06 Yes 1{devic 1 Device Univers reL 14 2-23 e} by ity of mcg/24 hrs 15:27: Intrauteri [place] (3 yrs) 16 ne route Medical 13.5 mg IUD once now. [facility] 04/15/2018 levonorgest 2021-06 Yes 1{devic 1 Device Univers reL 14 2-23 e} by ity of mcg/24 hrs 15:27: Intrauteri [place] (3 yrs) 16 ne route Medical 13.5 mg IUD once now. [facility] 04/15/2018 levonorgest 2021-06 Yes 1{devic 1 Device Univers reL 14 2-23 e} by ity of mcg/24 hrs 15:27: Intrauteri [place] (3 yrs) 16 ne route Medical 13.5 mg IUD once now. [facility] 04/15/2018 levonorgest 2021-06 Yes 1{devic 1 Device Univers reL 14 2-23 e} by ity of mcg/24 hrs 15:27: Intrauteri [place] (3 yrs) 16 ne route Medical 13.5 mg IUD once now. [facility] 04/15/2018 levonorgest 2021-06 Yes 1{devic 1 Device Univers reL 14 2-23 e} by ity of mcg/24 hrs 15:27: Intrauteri [place] (3 yrs) 16 ne route Medical 13.5 mg IUD once now. [facility] 04/15/2018 levonorgest 2021-06 Yes 1{devic 1 Device Univers reL 14 2-23 e} by ity of mcg/24 hrs 15:27: Intrauteri [place] (3 yrs) 16 ne route Medical 13.5 mg IUD once now. [facility] 04/15/2018 levonorgest 2021-06- No 1{devic 1 Device Univers reL 2-23 12-23 e} by ity of (MIRENA) 20 15:27: 00:00 Intrauteri [place] mcg/24 13 :00 ne route Medical hours (6 once now. Branch yrs) 52 mg IUD levonorgest 2021-06- No 1{devic 1 Device Univers reL 2-23 12-23 e} by ity of (MIRENA) 20 15:27: 00:00 Intrauteri [place] mcg/24 13 :00 ne route Medical hours (6 once now. Branch yrs) 52 mg IUD escitalopra 2021-06 Yes [id number] 20mg Take 1 Univers m oxalate 2-23 tablet by ity o f 20 mg 00:00: mouth in [place] tablet 00 the Medical morning. Branch escitalopra 2021-06 Yes [id number] 20mg Take 1 Univers m oxalate 2-23 tablet by ity o f 20 mg 00:00: mouth in [place] tablet 00 the Medical morning. Branch escitalopra 2021-06 Yes [id number] 20mg Take 1 Univers m oxalate 2-23 tablet by ity o f 20 mg 00:00: mouth in [place] tablet 00 the Medical morning. Branch escitalopra 2021-06 Yes [id number] 20mg Take 1 Univers m oxalate 2-23 tablet by ity o f 20 mg 00:00: mouth in [place] tablet 00 the Medical morning. Branch escitalopra 2021-06- No [id number] 20mg Take 1 Univers m oxalate 2-23 01-24 tablet by ity of 20 mg 00:00: 00:00 mouth in [place] tablet 00 :00 the Medical morning. [place] tirzepatide 2021-06 Yes [id number] 2.5mg inject 2.5 Univers (MOUNJARO) 1-30 mg under ity o f 2.5 mg/0.5 00:00: the skin Rishi as mL PnIj 00 weekly. Medical Branch tirzepatide 2021-06 Yes [id number] 2.5mg inject 2.5 Univers (MOUNJARO) 1-30 mg under ity o f 2.5 mg/0.5 00:00: the skin [place] as mL PnIj 00 weekly. Medical Branch tirzepatide 2021-06 Yes [id number] 2.5mg inject 2.5 Univers (MOUNJARO) 1-30 mg under ity o f 2.5 mg/0.5 00:00: the skin [place] as mL PnIj 00 weekly. [facility] Branch tirzepatide 2021-06 Yes [id number] 2.5mg inject 2.5 Univers (MOUNJARO) 1-30 mg under ity o f 2.5 mg/0.5 00:00: the skin [place] as mL PnIj 00 weekly. Medical Branch tirzepatide 2021-06 Yes [id number] 2.5mg inject 2.5 Univers (MOUNJARO) 1-30 mg under ity o f 2.5 mg/0.5 00:00: the skin [place] as mL PnIj 00 weekly. [facility] Branch tirzepatide 2021-06 Yes [id number] 2.5mg inject 2.5 Univers (MOUNJARO) 1-30 mg under ity o f 2.5 mg/0.5 00:00: the skin [place] as mL PnIj 00 weekly. Medical Branch tirzepatide 2021-06 Yes [id number] 2.5mg inject 2.5 Univers (MOUNJARO) 1-30 mg under ity o f 2.5 mg/0.5 00:00: the skin [place] as mL PnIj 00 weekly. [facility] Branch tirzepatide 2021-06 Yes [id number] 2.5mg inject 2.5 Univers (MOUNJARO) 1-30 mg under ity o f 2.5 mg/0.5 00:00: the skin [place] mL PnIj 00 weekly. Medical Branch tirzepatide 2021-06 Yes [id number] 2.5mg inject 2.5 Univers (MOUNJARO) 1-30 mg under ity o f 2.5 mg/0.5 00:00: the skin [place] as mL PnIj 00 weekly. Medical Branch tirzepatide 2021-06 Yes [id number] 2.5mg inject 2.5 Univers (MOUNJARO) 1-30 mg under ity o f 2.5 mg/0.5 00:00: the skin [place] mL PnIj 00 weekly. Medical Branch tirzepatide 2021-06 Yes [id number] 2.5mg inject 2.5 Univers (MOUNJARO) 1-30 mg under ity o f 2.5 mg/0.5 00:00: the skin [place] mL PnIj 00 weekly. [facility] Branch tirzepatide 2021-06 Yes [id number] 2.5mg inject 2.5 Univers (MOUNJARO) 1-30 mg under ity o f 2.5 mg/0.5 00:00: the skin [place] mL PnIj 00 weekly. Medical Branch tirzepatide 2021-06 Yes [id number] 2.5mg inject 2.5 Univers (MOUNJARO) 1-30 mg under ity o f 2.5 mg/0.5 00:00: the skin [place] as mL PnIj 00 weekly. [facility] Branch tirzepatide 2021-06 Yes [id number] 2.5mg inject 2.5 Univers (MOUNJARO) 1-30 mg under ity o f 2.5 mg/0.5 00:00: the skin [place] as mL PnIj 00 weekly. Medical Branch tirzepatide 2021-06 Yes [id number] 2.5mg inject 2.5 Univers (MOUNJARO) 1-30 mg under ity o f 2.5 mg/0.5 00:00: the skin [place] as mL PnIj 00 weekly. Medical Branch tirzepatide 2021-06 Yes [id number] 2.5mg inject 2.5 Univers (MOUNJARO) 1-30 mg under ity o f 2.5 mg/0.5 00:00: the skin [place] as mL PnIj 00 weekly. [facility] Branch tirzepatide 2021-06 Yes [id number] 2.5mg inject 2.5 Univers (MOUNJARO) 1-30 mg under ity o f 2.5 mg/0.5 00:00: the skin [place] mL PnIj 00 weekly. [facility] Branch tirzepatide 2021-06 Yes [id number] 2.5mg inject 2.5 Univers (MOUNJARO) 1-30 mg under ity o f 2.5 mg/0.5 00:00: the skin [place] as mL PnIj 00 weekly. [facility] Branch tirzepatide 2021-06 Yes [id number] 2.5mg inject 2.5 Univers (MOUNJARO) 1-30 mg under ity o f 2.5 mg/0.5 00:00: the skin [place] mL PnIj 00 weekly. [facility] tirzepatide 2021-06 Yes [id number] 2.5mg inject 2.5 Univers (MOUNJARO) 1-30 mg under ity o f 2.5 mg/0.5 00:00: the skin [place] mL PnIj 00 weekly. [facility] tirzepatide 2021-06 Yes [id number] 2.5mg inject 2.5 Univers (MOUNJARO) 1-30 mg under ity o f 2.5 mg/0.5 00:00: the skin [place] mL PnIj 00 weekly. [facility] Branch semaglutide 2021-06 Yes [id number] .25mg inject Univers , weight 1-10 0.25 mg ity of loss, 0.25 00:00: under the [place] mg/0.5 mL 00 skin Medical PnIj [place] weekly. Branch injection semaglutide 2021-06 Yes [id number] .25mg inject Univers , weight 1-10 0.25 mg ity of loss, 0.25 00:00: under the [place] mg/0.5 mL 00 skin Medical PnIj [place] weekly. Branch injection semaglutide 2021-06 Yes [id number] .25mg inject Univers , weight 1-10 0.25 mg ity of loss, 0.25 00:00: under the [place] mg/0.5 mL 00 skin Medical PnIj [place] weekly. Branch injection semaglutide 2021-06 Yes [id number] .25mg inject Univers , weight 1-10 0.25 mg ity of loss, 0.25 00:00: under the [place] mg/0.5 mL 00 skin Medical PnIj [place] weekly. Branch injection semaglutide 2021-06 Yes [id number] .25mg inject Univers , weight 1-10 0.25 mg ity of loss, 0.25 00:00: under the [place] mg/0.5 mL 00 skin Medical PnIj [place] weekly. Branch injection semaglutide 2021-06 Yes [id number] .25mg inject Univers , weight 1-10 0.25 mg ity of loss, 0.25 00:00: under the [place] mg/0.5 mL 00 skin Medical PnIj [place] weekly. Branch injection semaglutide 2021-06- No [id number] .25mg inject Univers , weight 1-10 11-30 0.25 mg ity of loss, 0.25 00:00: 00:00 under the [place] mg/0.5 mL 00 :00 skin Medical PnIj [place] weekly. Branch injection semaglutide 2021-06- No [id number] .25mg inject Univers , weight 1-10 11-30 0.25 mg ity of loss, 0.25 00:00: 00:00 under the [place] mg/0.5 mL 00 :00 skin Medical PnIj [place] weekly. Branch injection semaglutide 2021-06- No [id number] .25mg inject Univers , weight 1-10 11-30 0.25 mg ity of loss, 0.25 00:00: 00:00 under the [place] mg/0.5 mL 00 :00 skin Medical PnIj [place] weekly. Branch injection semaglutide 2021-06 Yes [id number] .25mg inject Univers , weight 1-04 0.25 mg ity of loss, 0.25 00:00: under the [place] mg/0.5 mL 00 skin Medical PnIj [place] weekly. Branch injection semaglutide 2021-06 Yes [id number] .25mg inject Univers , weight 1-04 0.25 mg ity of loss, 0.25 00:00: under the [place] mg/0.5 mL 00 skin Medical PnIj [place] weekly. Branch injection semaglutide 2021-06- No [id number] .25mg inject Univers , weight 1-04 11-10 0.25 mg ity of loss, 0.25 00:00: 00:00 under the [place] mg/0.5 mL 00 :00 skin Medical PnIj [place] weekly. Branch injection semaglutide 2021-06- No [id number] .25mg inject Univers , weight 1- 11-10 0.25 mg ity of loss, 0.25 00:00: 00:00 under the [place] mg/0.5 mL 00 :00 skin Medical PnIj [place] weekly. Branch injection semaglutide 2021-06- No [id number] .25mg inject Univers , weight - 11-10 0.25 mg ity of loss, 0.25 00:00: 00:00 under the [place] mg/0.5 mL 00 :00 skin Medical PnIj [place] weekly. Branch injection hydrOXYzine 2021-06- No Take by Un andrea 10 mg 06-24 mouth ity of tablet 08:55: 00:00 every 6 [place] 56 :00 (six) Medical hours. Branch hydrOXYzine 2021-06- No Take by Un andrea 10 mg 06-24 mouth ity of tablet 08:55: 00:00 every 6 [place] 56 :00 (six) Medical hours. Branch buPROPion 2021-06 Yes [id number] 150mg Take 1 Univers XL 1-02 tablet by ity of (WELLBUTRIN 00:00: mouth in [place] XL) 150 mg 00 the Medical 24 hr morning. Branch tablet busPIRone 2021-06 Yes [id number] 10mg Take 1 U nivers 10 mg 1-02 tablet by ity of tablet 00:00: mouth 2 [place] 00 (two) Medical times Branch daily as needed for Other (anxiety). escitalopra 2021-06 Yes [id number] 10mg Take 1 Univers m oxalate 1-02 tablet by ity o f (LEXAPRO) 00:00: [place] 10 mg 00 the Medical tablet morning. Branch buPROPion 2021-06 Yes [id number] 150mg Take 1 Univers XL 1-02 tablet by ity of (WELLBUTRIN 00:00: mouth in [place] XL) 150 mg 00 the Medical 24 hr morning. Branch tablet busPIRone 2021-06 Yes [id number] 10mg Take 1 U nivers 10 mg 1-02 tablet by ity of tablet 00:00: mouth 2 [place] 00 (two) Medical times Branch daily as needed for Other (anxiety). escitalopra 2021-06 Yes [id number] 10mg Take 1 Univers m oxalate 1-02 tablet by ity o f (LEXAPRO) 00:00: [place] 10 mg 00 the Medical tablet morning. Branch buPROPion 2021-06 Yes [id number] 150mg Take 1 Univers XL 1-02 tablet by ity of (WELLBUTRIN 00:00: mouth in [place] XL) 150 mg 00 the Medical 24 hr morning. Branch tablet busPIRone 2021-06 Yes [id number] 10mg Take 1 U nivers 10 mg 1-02 tablet by ity of tablet 00:00: mouth 2 00 (two) Medical times Branch daily as needed for Other (anxiety). buPROPion 2021-06 Yes [id number] 150mg Take 1 Univers XL 1-02 tablet by ity of (WELLBUTRIN 00:00: mouth in [place] XL) 150 mg 00 the Medical 24 hr morning. Branch tablet busPIRone 2021-06 Yes [id number] 10mg Take 1 U nivers 10 mg 1-02 tablet by ity of tablet 00:00: mouth 2 00 (two) Medical times Branch daily as needed for Other (anxiety). buPROPion 2021-06 Yes [id number] 150mg Take 1 Univers XL 1-02 tablet by ity of (WELLBUTRIN 00:00: mouth in [place] XL) 150 mg 00 the Medical 24 hr morning. Branch tablet busPIRone 2021-06 Yes [id number] 10mg Take 1 U nivers 10 mg 1-02 tablet by ity of tablet 00:00: mouth 2 [place] 00 (two) Medical times Branch daily as needed for Other (anxiety). buPROPion 2021-06 Yes [id number] 150mg Take 1 Univers XL 1-02 tablet by ity of (WELLBUTRIN 00:00: mouth in [place] XL) 150 mg 00 the Medical 24 hr morning. Branch tablet busPIRone 2021-06 Yes [id number] 10mg Take 1 U nivers 10 mg 1-02 tablet by ity of tablet 00:00: mouth 2 [place] 00 (two) Medical times Branch daily as needed for Other (anxiety). buPROPion 2021-06 Yes [id number] 150mg Take 1 Univers XL 1-02 tablet by ity of (WELLBUTRIN 00:00: mouth in [place] XL) 150 mg 00 the Medical 24 hr morning. Branch tablet busPIRone 2021-06 Yes [id number] 10mg Take 1 U nivers 10 mg 1-02 tablet by ity of tablet 00:00: mouth 2 [place] 00 (two) Medical times Branch daily as needed for Other (anxiety). buPROPion 2021-06 Yes [id number] 150mg Take 1 Univers XL 1-02 tablet by ity of (WELLBUTRIN 00:00: mouth in [place] XL) 150 mg 00 the Medical 24 hr morning. Branch tablet busPIRone 2021-06 Yes [id number] 10mg Take 1 U nivers 10 mg 1-02 tablet by ity of tablet 00:00: mouth 2 (two) Medical times Branch daily as needed for Other (anxiety). buPROPion 2021-06 Yes [id number] 150mg Take 1 [facility] tablet by [facility] (WELLBUTRIN 00:00: mouth in [place] XL) 150 mg 00 the Medical 24 hr morning. Branch tablet busPIRone 2021-06 Yes [id number] 10mg Take 1 [facility] n[facility] 10 mg 1-02 tablet by [facility] tablet 00:00: mouth 2 00 (two) Medical times Branch daily as needed for Other (anxiety). buPROPion 2021-06 Yes [id number] 150mg Take 1 [facility] XL 1-02 tablet by [facility] (WELLBUTRIN 00:00: mouth in [place] XL) 150 mg 00 the Medical 24 hr morning. Branch tablet busPIRone 2021-06 Yes [id number] 10mg Take 1 [facility] 10 mg 1-02 tablet by [facility] tablet 00:00: mouth 2 [place] 00 (two) Medical times Branch daily as needed for Other (anxiety). buPROPion 2021-06 Yes [id number] 150mg Take 1 [facility] XL 1-02 tablet by [facility] (WELLBUTRIN 00:00: mouth in [place] XL) 150 mg 00 the Medical 24 hr morning. Branch tablet busPIRone 2021-06 Yes [id number] 10mg Take 1 [facility] 10 mg 1-02 tablet by [facility] tablet 00:00: mouth 2 [place] 00 (two) Medical times Branch daily as needed for Other (anxiety). buPROPion 2021-06 Yes [id number] 150mg Take 1 [facility] XL 1-02 tablet by [facility] (WELLBUTRIN 00:00: mouth in [place] XL) 150 mg 00 the Medical 24 hr morning. Branch tablet busPIRone 2021-06 Yes [id number] 10mg Take 1 [facility] 10 mg 1-02 tablet by [facility] tablet 00:00: mouth 2 [place] 00 (two) Medical times Branch daily as needed for Other (anxiety). buPROPion 2021-06 Yes [id number] 150mg Take 1 [facility] XL 1-02 tablet by [facility] (WELLBUTRIN 00:00: mouth in [place] XL) 150 mg 00 the Medical 24 hr morning. Branch tablet busPIRone 2021-06 Yes [id number] 10mg Take 1 [facility] 10 mg 1-02 tablet by [facility] tablet 00:00: mouth 2 [place] 00 (two) Medical times Branch daily as needed for Other (anxiety). buPROPion 2021-06 Yes [id number] 150mg Take 1 [facility] XL 1-02 tablet by [facility] (WELLBUTRIN 00:00: mouth in [place] XL) 150 mg 00 the Medical 24 hr morning. Branch tablet busPIRone 2021-06 Yes [id number] 10mg Take 1 [facility] 10 mg 1-02 tablet by [facility] tablet 00:00: mouth 2 [place] 00 (two) Medical times Branch daily as needed for Other (anxiety). escitalopra 2021-06 Yes [id number] 10mg Take 1 [facility] oxalate 1-02 tablet by [facility] o f (LEXAPRO) 00:00: mouth [place] 10 mg 00 the [facility] tablet morning. Branch buPROPion 2021-06 Yes [id number] 150mg Take 1 [facility] XL 1-02 tablet by [facility] (WELLBUTRIN 00:00: mouth in [place] XL) 150 mg 00 the Medical 24 hr morning. Branch tablet busPIRone 2021-06 Yes [id number] 10mg Take 1 [facility] 10 mg 1-02 tablet by [facility] tablet 00:00: mouth 2 [place] 00 (two) Medical times Branch daily as needed for Other (anxiety). escitalopra 2021-06 Yes [id number] 10mg Take 1 [facility] oxalate 1-02 tablet by [facility] o f (LEXAPRO) 00:00: mouth [place] 10 mg 00 the [facility] tablet morning. Branch buPROPion 2021-06 Yes [id number] 150mg Take 1 [facility] XL 1-02 tablet by [facility] (WELLBUTRIN 00:00: mouth in [place] XL) 150 mg 00 the Medical 24 hr morning. Branch tablet busPIRone 2021-06 Yes [id number] 10mg Take 1 [facility] 10 mg 1-02 tablet by [facility] tablet 00:00: mouth 2 [place] 00 (two) Medical times Branch daily as needed for Other (anxiety). escitalopra 2021-06 Yes [id number] 10mg Take 1 [facility] oxalate 1-02 tablet by [facility] o f (LEXAPRO) 00:00: mouth [place] 10 mg 00 the [facility] tablet morning. Branch buPROPion 2021-06 Yes [id number] 150mg Take 1 [facility] XL 1-02 tablet by [facility] of (WELLBUTRIN 00:00: mouth in [place] XL) 150 mg 00 the Medical 24 hr morning. Branch tablet busPIRone 2021-06 Yes [id number] 10mg Take 1 [facility] 10 mg 1-02 tablet by [facility] of tablet 00:00: mouth 2 [place] 00 (two) Medical times Branch daily as needed for Other (anxiety). escitalopra 2021-06 Yes [id number] 10mg Take 1 [facility] oxalate 1-02 tablet by [facility] o f (LEXAPRO) 00:00: mouth [place] 10 mg 00 the Medical tablet morning. Branch buPROPion 2021-06 Yes [id number] 150mg Take 1 [facility] XL 1-02 tablet by [facility] of (WELLBUTRIN 00:00: mouth in [place] XL) 150 mg 00 the Medical 24 hr morning. Branch tablet busPIRone 2021-06 Yes [id number] 10mg Take 1 [facility] 10 mg 1-02 tablet by [facility] of tablet 00:00: mouth 2 [place] 00 (two) Medical times Branch daily as needed for Other (anxiety). escitalopra 2021-06 Yes [id number] 10mg Take 1 [facility] oxalate 1-02 tablet by [facility] o f (LEXAPRO) 00:00: mouth [place] 10 mg 00 the Medical tablet morning. Branch buPROPion 2021-06 Yes [id number] 150mg Take 1 [facility] XL 1-02 tablet by [facility] of (WELLBUTRIN 00:00: mouth in [place] XL) 150 mg 00 the Medical 24 hr morning. Branch tablet busPIRone 2021-06 Yes [id number] 10mg Take 1 [facility] 10 mg 1-02 tablet by [facility] tablet 00:00: mouth 2 [place] 00 (two) Medical times Branch daily as needed for Other (anxiety). escitalopra 2021-06 Yes [id number] 10mg Take 1 [facility] oxalate 1-02 tablet by [facility] o f (LEXAPRO) 00:00: mouth [place] 10 mg 00 the Medical tablet morning. Branch buPROPion 2021-06 Yes [id number] 150mg Take 1 [facility] XL 1-02 tablet by [facility] (WELLBUTRIN 00:00: mouth in [place] XL) 150 mg 00 the Medical 24 hr morning. Branch tablet busPIRone 2021-06 Yes [id number] 10mg Take 1 [facility] 10 mg 1-02 tablet by [facility] tablet 00:00: mouth 2 [place] 00 (two) Medical times Branch daily as needed for Other (anxiety). escitalopra 2021-06 Yes [id number] 10mg Take 1 [facility] oxalate 1-02 tablet by [facility] o f (LEXAPRO) 00:00: mouth [place] 10 mg 00 the Medical tablet morning. Branch buPROPion 2021-06 Yes [id number] 150mg Take 1 [facility] XL 1-02 tablet by [facility] of (WELLBUTRIN 00:00: mouth in [place] XL) 150 mg 00 the Medical 24 hr morning. Branch tablet busPIRone 2021-06 Yes [id number] 10mg Take 1 [facility] 10 mg 1-02 tablet by [facility] tablet 00:00: mouth 2 [place] 00 (two) Medical times Branch daily as needed for Other (anxiety). escitalopra 2021-06 Yes [id number] 10mg Take 1 [facility] oxalate 1-02 tablet by [facility] o f (LEXAPRO) 00:00: mouth [place] 10 mg 00 the Medical tablet morning. Branch buPROPion 2021-06 Yes [id number] 150mg Take 1 [facility] XL 1-02 tablet by [facility] (WELLBUTRIN 00:00: mouth in [place] XL) 150 mg 00 the Medical 24 hr morning. Branch tablet busPIRone 2021-06 Yes [id number] 10mg Take 1 [facility] 10 mg 1-02 tablet by [facility] tablet 00:00: mouth 2 [place] 00 (two) Medical times Branch daily as needed for Other (anxiety). escitalopra 2021-06 Yes [id number] 10mg Take 1 [facility] oxalate 1-02 tablet by [facility] o f (LEXAPRO) 00:00: mouth [place] 10 mg 00 the Medical tablet morning. Branch buPROPion 2021-06 Yes [id number] 150mg Take 1 [facility] XL 1-02 tablet by [facility] (WELLBUTRIN 00:00: mouth in [place] XL) 150 mg 00 the Medical 24 hr morning. Branch tablet busPIRone 2021-06 Yes [id number] 10mg Take 1 [facility] 10 mg 1-02 tablet by [facility] of tablet 00:00: mouth 2 [place] 00 (two) Medical times Branch daily as needed for Other (anxiety). escitalopra 2021-06 Yes [id number] 10mg Take 1 [facility] oxalate 1-02 tablet by [facility] o f (LEXAPRO) 00:00: mouth [place] 10 mg 00 the [facility] tablet morning. Branch buPROPion 2021-06 Yes [id number] 150mg Take 1 [facility] XL 1-02 tablet by [facility] of (WELLBUTRIN 00:00: mouth in [place] XL) 150 mg 00 the Medical 24 hr morning. Branch tablet busPIRone 2021-06 Yes [id number] 10mg Take 1 [facility] 10 mg 1-02 tablet by [facility] tablet 00:00: mouth 2 [place] 00 (two) Medical times Branch daily as needed for Other (anxiety). escitalopra 2021-06 Yes [id number] 10mg Take 1 [facility] oxalate 1-02 tablet by [facility] o f (LEXAPRO) 00:00: mouth [place] 10 mg 00 the Medical tablet morning. Branch buPROPion 2021-06 Yes [id number] 150mg Take 1 [facility] XL 1-02 tablet by [facility] (WELLBUTRIN 00:00: mouth in [place] XL) 150 mg 00 the Medical 24 hr morning. Branch tablet busPIRone 2021-06 Yes [id number] 10mg Take 1 [facility] 10 mg 1-02 tablet by [facility] tablet 00:00: mouth 2 [place] 00 (two) Medical times Branch daily as needed for Other (anxiety). escitalopra 2021-06 Yes [id number] 10mg Take 1 [facility] oxalate 1-02 tablet by [facility] o f (LEXAPRO) 00:00: mouth [place] 10 mg 00 the Medical tablet morning. Branch buPROPion 2021-06 Yes [id number] 150mg Take 1 [facility] XL 1-02 tablet by [facility] (WELLBUTRIN 00:00: mouth in [place] XL) 150 mg 00 the Medical 24 hr morning. Branch tablet busPIRone 2021-06 Yes [id number] 10mg Take 1 [facility] 10 mg 1-02 tablet by [facility] tablet 00:00: mouth 2 [place] 00 (two) Medical times Branch daily as needed for Other (anxiety). escitalopra 2021-06 Yes [id number] 10mg Take 1 [facility] oxalate 1-02 tablet by [facility] o f (LEXAPRO) 00:00: mouth [place] 10 mg 00 the Medical tablet morning. Branch buPROPion 2021-06 Yes [id number] 150mg Take 1 [facility] XL 1-02 tablet by [facility] of (WELLBUTRIN 00:00: mouth in [place] XL) 150 mg 00 the Medical 24 hr morning. Branch tablet busPIRone 2021-06 Yes [id number] 10mg Take 1 [facility] 10 mg 1-02 tablet by [facility] of tablet 00:00: mouth 2 [place] 00 (two) Medical times Branch daily as needed for Other (anxiety). escitalopra 2021-06 Yes [id number] 10mg Take 1 [facility] oxalate 1-02 tablet by [facility] o f (LEXAPRO) 00:00: mouth [place] 10 mg 00 the Medical tablet morning. Branch buPROPion 2021-06 Yes [id number] 150mg Take 1 [facility] XL 1-02 tablet by [facility] of (WELLBUTRIN 00:00: mouth in [place] XL) 150 mg 00 the Medical 24 hr morning. Branch tablet busPIRone 2021-06 Yes [id number] 10mg Take 1 [facility] 10 mg 1-02 tablet by [facility] of tablet 00:00: mouth 2 [place] 00 (two) Medical times Branch daily as needed for Other (anxiety). escitalopra 2021-06 Yes [id number] 10mg Take 1 [facility] oxalate 1-02 tablet by [facility] o f (LEXAPRO) 00:00: mouth [place] 10 mg 00 the Medical tablet morning. Branch buPROPion 2021-06 Yes [id number] 150mg Take 1 [facility] XL 1-02 tablet by [facility] of (WELLBUTRIN 00:00: mouth in [place] XL) 150 mg 00 the Medical 24 hr morning. Branch tablet busPIRone 2021-06 Yes [id number] 10mg Take 1 [facility] 10 mg 1-02 tablet by [facility] tablet 00:00: mouth 2 [place] 00 (two) Medical times Branch daily as needed for Other (anxiety). escitalopra 2021-06 Yes [id number] 10mg Take 1 [facility] oxalate 1-02 tablet by [facility] o f (LEXAPRO) 00:00: mouth [place] 10 mg 00 the Medical tablet morning. Branch buPROPion 2021-06 Yes [id number] 150mg Take 1 [facility] XL 1-02 tablet by [facility] of (WELLBUTRIN 00:00: mouth in [place] XL) 150 mg 00 the Medical 24 hr morning. Branch tablet busPIRone 2021-06 Yes [id number] 10mg Take 1 [facility] 10 mg 1-02 tablet by [facility] tablet 00:00: mouth 2 [place] 00 (two) Medical times Branch daily as needed for Other (anxiety). escitalopra 2021-06 Yes [id number] 10mg Take 1 [facility] oxalate 1-02 tablet by [facility] o f (LEXAPRO) 00:00: mouth [place] 10 mg 00 the Medical tablet morning. Branch buPROPion 2021-06 Yes [id number] 150mg Take 1 [facility] XL 1-02 tablet by [facility] of (WELLBUTRIN 00:00: mouth in [place] XL) 150 mg 00 the Medical 24 hr morning. Branch tablet busPIRone 2021-06 Yes [id number] 10mg Take 1 [facility] 10 mg 1-02 tablet by [facility] of tablet 00:00: mouth 2 [place] 00 (two) Medical times Branch daily as needed for Other (anxiety). escitalopra 2021-06 Yes [id number] 10mg Take 1 [facility] oxalate 1-02 tablet by [facility] o f (LEXAPRO) 00:00: mouth [place] 10 mg 00 the Medical tablet morning. Branch buPROPion 2021-06 Yes [id number] 150mg Take 1 [facility] XL 1-02 tablet by [facility] of (WELLBUTRIN 00:00: mouth in [place] XL) 150 mg 00 the Medical 24 hr morning. Branch tablet busPIRone 2021-06 Yes [id number] 10mg Take 1 [facility] 10 mg 1-02 tablet by [facility] of tablet 00:00: mouth 2 [place] 00 (two) Medical times Branch daily as needed for Other (anxiety). escitalopra 2021-06 Yes [id number] 10mg Take 1 [facility] oxalate 1-02 tablet by [facility] o f (LEXAPRO) 00:00: mouth [place] 10 mg 00 the Medical tablet morning. Branch buPROPion 2021-06 Yes [id number] 150mg Take 1 [facility] XL 1-02 tablet by [facility] of (WELLBUTRIN 00:00: mouth in [place] XL) 150 mg 00 the Medical 24 hr morning. Branch tablet busPIRone 2021-06 Yes [id number] 10mg Take 1 [facility] 10 mg 1-02 tablet by [facility] of tablet 00:00: mouth 2 [place] 00 (two) Medical times Branch daily as needed for Other (anxiety). escitalopra 2021-06 Yes [id number] 10mg Take 1 [facility] oxalate 1-02 tablet by [facility] o f (LEXAPRO) 00:00: mouth [place] 10 mg 00 the Medical tablet morning. Branch buPROPion 2021-06 Yes [id number] 150mg Take 1 [facility] XL 1-02 tablet by [facility] of (WELLBUTRIN 00:00: mouth in [place] XL) 150 mg 00 the Medical 24 hr morning. Branch tablet busPIRone 2021-06 Yes [id number] 10mg Take 1 [facility] 10 mg 1-02 tablet by [facility] of tablet 00:00: mouth 2 [place] 00 (two) Medical times Branch daily as needed for Other (anxiety). escitalopra 2021-06 Yes [id number] 10mg Take 1 [facility] oxalate 06-24 tablet by [facility] o f (LEXAPRO) 00:00: mouth [place] 10 mg 00 the Medical tablet morning. Branch buPROPion 2021-06- No [id number] 150mg Take 1 [facility] XL 06-24-15 tablet by [facility] of (WELLBUTRIN 00:00: 00:00 mouth in [place] XL) 150 mg 00 :00 the Medical 24 hr morning. Branch tablet busPIRone 2021-06- No [id number] 10mg Take 1 [facility] 10 mg 06-24-15 tablet by [facility] of tablet 00:00: 00:00 mouth 2 [place] 00 :00 (two) Medical times Branch daily as needed for Other (anxiety). buPROPion 2021-06- No [id number] 150mg Take 1 [facility] XL 06-24-15 tablet by [facility] of (WELLBUTRIN 00:00: 00:00 mouth in [place] XL) 150 mg 00 :00 the Medical 24 hr morning. Branch tablet busPIRone 2021-06- No [id number] 10mg Take 1 [facility] 10 mg 06-24-15 tablet by [facility] of tablet 00:00: 00:00 mouth 2 [place] 00 :00 (two) Medical times Branch daily as needed for Other (anxiety). escitalopra 2021-06- No [id number] 10mg Take 1 [facility] m oxalate 06-24- tablet by [facility] of (LEXAPRO) 00:00: 00:00 mouth in [place] 10 mg 00 :00 the Medical tablet morning. Branch escitalopra 2021-06- No [id number] 10mg Take 1 [facility] oxalate 06-24- tablet by [facility] of (LEXAPRO) 00:00: 00:00 mouth in [place] 10 mg 00 :00 the Medical tablet morning. Branch busPIRone 2021-06 Yes [id number] 10mg Take 1 [facility] 10 mg 0-24 tablet by [facility] of tablet 00:00: mouth 2 [place] 00 (two) Medical times Branch daily as needed for Other (anxiety). buPROPion 2021-06 Yes [id number] 150mg Take 1 [facility] XL 0-24 tablet by [facility] of (WELLBUTRIN 00:00: mouth in [place] XL) 150 mg 00 the Medical 24 hr morning. Branch tablet busPIRone 2021-06- No [id number] 10mg Take 1 [facility] 10 mg 0-24 11- tablet by [facility] of tablet 00:00: 00:00 mouth 2 [place] 00 :00 (two) Medical times Branch daily as needed for Other (anxiety). buPROPion 2021-06- No [id number] 150mg Take 1 [facility] XL 0-24 11- tablet by [facility] of (WELLBUTRIN 00:00: 00:00 mouth in [place] XL) 150 mg 00 :00 the Medical 24 hr morning. Branch tablet busPIRone 2021-06 No [id number] 10mg Take 1 [facility] 10 mg 0-24 04-24 tablet by [facility] of tablet 00:00: 00:00 mouth 2 [place] 00 :00 (two) Medical times Branch daily as needed for Other (anxiety). buPROPion 2021-06 No [id number] 150mg Take 1 [facility] XL 0-24 11-02 tablet by [facility] of (WELLBUTRIN 00:00: 00:00 mouth in [place] XL) 150 mg 00 :00 the Medical 24 hr morning. Branch tablet buPROPion Yes [id number] 150mg Take 1 [facility] XL 8-24 tablet by [facility] of (WELLBUTRIN 00:00: mouth in [place] XL) 150 mg 00 the Medical 24 hr morning. Branch tablet buPROPion Yes [id number] 150mg Take 1 [facility] XL 8-24 tablet by [facility] of (WELLBUTRIN 00:00: mouth in [place] XL) 150 mg 00 the Medical 24 hr morning. Branch tablet buPROPion 2021- No [id number] 150mg Take 1 [facility] XL 8-24 10-23 tablet by [facility] of (WELLBUTRIN 00:00: 00:00 mouth in [place] XL) 150 mg 00 :00 the Medical 24 hr morning. Branch tablet busPIRone Yes [id number] 10mg Take 1 [facility] 10 mg 6-27 tablet by [facility] of tablet 00:00: mouth 2 00 (two) Medical times Branch daily as needed for Other (anxiety). busPIRone 2021-0 Yes [id number] 10mg Take 1 [facility] 10 mg 6-27 tablet by [facility] of tablet 00:00: mouth 2 00 (two) Medical times Branch daily as needed for Other (anxiety). busPIRone 0 Yes [id number] 10mg Take 1 [facility] 10 mg 6-27 tablet by [facility] of tablet 00:00: mouth 2 00 (two) Medical times Branch daily as needed for Other (anxiety). busPIRone Yes [id number] 10mg Take 1 [facility] 10 mg 6-27 tablet by [facility] of tablet 00:00: mouth 2 00 (two) Medical times Branch daily as needed for Other (anxiety). busPIRone Yes [id number] 10mg Take 1 [facility] 10 mg 6-27 tablet by [facility] of tablet 00:00: mouth 2 (two) Medical times Branch daily as needed for Other (anxiety). busPIRone 2021- No [id number] 10mg Take 1 [facility] 10 mg 6-27 10-23 tablet by [facility] of tablet 00:00: 00:00 mouth 2 [place] 00 :00 (two) Medical times Branch daily as needed for Other (anxiety). buPROPion Yes [id number] 150mg Take 1 [facility] XL 6-14 tablet by [facility] of (WELLBUTRIN 00:00: mouth [place] XL) 150 mg 00 daily. Medical 24 hr Branch tablet buPROPion Yes [id number] 150mg Take 1 [facility] XL 6-14 tablet by [facility] of (WELLBUTRIN 00:00: mouth [place] XL) 150 mg 00 daily. Medical 24 hr Branch tablet buPROPion 0 2- No [id number] 150mg Take 1 [facility] XL 6-14 08-22 tablet by [facility] of (WELLBUTRIN 00:00: 00:00 mouth [place] XL) 150 mg 00 :00 daily. Medical 24 hr Branch tablet multivitami Yes 1{tbl} Take 1 [facility] tablet 3-16 tablet by [facility] of 16:36: mouth [place] 23 every Medical morning. Branch multivitami Yes 1{tbl} Take 1 [facility] tablet 3-16 tablet by [facility] of 16:36: mouth [place] 23 every Medical morning. Branch multivitami Yes 1{tbl} Take 1 [facility] tablet 3-16 tablet by [facility] of 16:36: mouth [place] 23 every Medical morning. Branch multivitami Yes 1{tbl} Take 1 [facility] [place] tablet 3-16 tablet by [facility] of 16:36: mouth [place] 23 every Medical morning. Branch multivitami Yes 1{tbl} Take 1 [facility] [place] tablet 3-16 tablet by [facility] of 16:36: mouth [place] 23 every Medical morning. Branch multivitami Yes 1{tbl} Take 1 [facility] [place] tablet 3-16 tablet by [facility] of 16:36: mouth [place] 23 every Medical morning. Branch multivitami Yes 1{tbl} Take 1 [facility] [place] tablet 3-16 tablet by [facility] of 16:36: mouth [place] 23 every Medical morning. Branch multivitami Yes 1{tbl} Take 1 [facility] [place] [facility] tablet 3-16 tablet by [facility] of 16:36: mouth [place] 23 every Medical morning. Branch multivitami Yes 1{tbl} Take 1 [facility] [place] tablet 3-16 tablet by [facility] of 16:36: mouth [place] 23 every Medical morning. Branch multivitami Yes 1{tbl} Take 1 [facility] [place] tablet 3-16 tablet by [facility] of 16:36: mouth [place] 23 every Medical morning. Branch multivitami Yes 1{tbl} Take 1 [facility] [place] [facility] tablet 3-16 tablet by [facility] of 16:36: mouth [place] 23 every Medical morning. Branch multivitami Yes 1{tbl} Take 1 [facility] [place] tablet 3-16 tablet by [facility] of 16:36: mouth [place] 23 every Medical morning. Branch multivitami Yes 1{tbl} Take 1 [facility] [place] tablet 3-16 tablet by [facility] of 16:36: mouth [place] 23 every Medical morning. Branch multivitami Yes 1{tbl} Take 1 [facility] [place] [facility] tablet 3-16 tablet by [facility] of 16:36: mouth [place] 23 every Medical morning. Branch multivitami Yes 1{tbl} Take 1 [facility] [place] [facility] tablet 3-16 tablet by [facility] of 16:36: mouth [place] 23 every Medical morning. Branch multivitami Yes 1{tbl} Take 1 [facility] [place] tablet 3-16 tablet by [facility] of 16:36: mouth [place] 23 every Medical morning. Branch multivitami Yes 1{tbl} Take 1 [facility] [place] tablet 3-16 tablet by [facility] of 16:36: mouth [place] 23 every Medical morning. Branch multivitami Yes 1{tbl} Take 1 [facility] [place] [facility] tablet 3-16 tablet by [facility] of 16:36: mouth [place] 23 every Medical morning. Branch multivitami Yes 1{tbl} Take 1 [facility] [place] [facility] tablet 3-16 tablet by [facility] of 16:36: mouth [place] 23 every Medical morning. Branch multivitami Yes 1{tbl} Take 1 [facility] [place] tablet 3-16 tablet by [facility] of 16:36: mouth [place] 23 every Medical morning. Branch multivitami Yes 1{tbl} Take 1 [facility] [place] tablet 3-16 tablet by [facility] of 16:36: mouth [place] 23 every Medical morning. Branch multivitami Yes 1{tbl} Take 1 [facility] [place] tablet 3-16 tablet by [facility] of 16:36: mouth [place] 23 every Medical morning. Branch multivitami Yes 1{tbl} Take 1 [facility] [place] [facility] tablet 3-16 tablet by [facility] of 16:36: mouth [place] 23 every Medical morning. Branch multivitami Yes 1{tbl} Take 1 [facility] [place] [facility] tablet 3-16 tablet by [facility] of 16:36: mouth [place] 23 every Medical morning. Branch multivitami Yes 1{tbl} Take 1 [facility] [place] [facility] tablet 3-16 tablet by [facility] of 16:36: mouth [place] 23 every Medical morning. Branch multivitami Yes 1{tbl} Take 1 [facility] [place] [facility] tablet 3-16 tablet by [facility] of 16:36: mouth [place] 23 every Medical morning. Branch multivitami Yes 1{tbl} Take 1 [facility] [place] tablet 3-16 tablet by [facility] of 16:36: mouth [place] 23 every Medical morning. Branch multivitami Yes 1{tbl} Take 1 [facility] [place] [facility] tablet 3-16 tablet by [facility] of 16:36: mouth [place] 23 every Medical morning. Branch multivitami Yes 1{tbl} Take 1 [facility] [place] [facility] tablet 3-16 tablet by [facility] of 16:36: mouth [place] 23 every Medical morning. Branch multivitami Yes 1{tbl} Take 1 [facility] [place] [facility] tablet 3-16 tablet by [facility] of 16:36: mouth [place] 23 every Medical morning. Branch multivitami Yes 1{tbl} Take 1 [facility] [place] [facility] tablet 3-16 tablet by [facility] of 16:36: mouth [place] 23 every Medical morning. Branch multivitami Yes 1{tbl} Take 1 [facility] [place] [facility] tablet 3-16 tablet by [facility] of 16:36: mouth [place] 23 every Medical morning. Branch multivitami Yes 1{tbl} Take 1 [facility] [place] [facility] tablet 3-16 tablet by [facility] of 16:36: mouth [place] 23 every Medical morning. Branch multivitami Yes 1{tbl} Take 1 [facility] [place] tablet 3-16 tablet by [facility] of 16:36: mouth [place] 23 every Medical morning. Branch multivitami Yes 1{tbl} Take 1 [facility] [place] [facility] tablet 3-16 tablet by [facility] of 16:36: mouth [place] 23 every Medical morning. Branch multivitami Yes 1{tbl} Take 1 [facility] [place] [facility] tablet 3-16 tablet by [facility] of 16:36: mouth [place] 23 every Medical morning. Branch multivitami Yes 1{tbl} Take 1 [facility] [place] tablet 3-16 tablet by [facility] of 16:36: mouth [place] 23 every Medical morning. Branch multivitami Yes 1{tbl} Take 1 [facility] [place] tablet 3-16 tablet by [facility] of 16:36: mouth [place] 23 every Medical morning. Branch multivitami Yes 1{tbl} Take 1 [facility] [place] tablet 3-16 tablet by [facility] of 16:36: mouth [place] 23 every Medical morning. Branch multivitami Yes 1{tbl} Take 1 [facility] [place] tablet 3-16 tablet by [facility] of 16:36: mouth [place] 23 every Medical morning. Branch multivitami Yes 1{tbl} Take 1 [facility] [place] tablet 3-16 tablet by [facility] of 16:36: mouth [place] 23 every Medical morning. Branch multivitami Yes 1{tbl} Take 1 [facility] [place] tablet 3-16 tablet by [facility] of 16:36: mouth [place] 23 every Medical morning. Branch multivitami Yes 1{tbl} Take 1 [facility] [place] [facility] tablet 3-16 tablet by [facility] of 16:36: mouth [place] 23 every Medical morning. Branch multivitami Yes 1{tbl} Take 1 [facility] [place] tablet 3-16 tablet by [facility] of 16:36: mouth [place] 23 every Medical morning. Branch multivitami Yes 1{tbl} Take 1 [facility] [place] tablet 3-16 tablet by [facility] of 16:36: mouth [place] 23 every Medical morning. Branch multivitami Yes 1{tbl} Take 1 [facility] tablet 3-16 tablet by ity of 16:36: mouth [place] 23 every Medical morning. Branch hydroCHLORO Yes 50mg Take 50 mg [facility] thiazide 50 2-23 by mouth ity of mg tablet 00:00: daily. [facility] hydroCHLORO 2021-0 Yes 50mg Take 50 mg [facility] thiazide 50 2-23 by mouth ity of mg tablet 00:00: daily. [facility] hydroCHLORO 0 Yes 50mg Take 50 mg [facility] thiazide 50 2-23 by mouth ity of mg tablet 00:00: daily. [facility] hydroCHLORO 2021-0 Yes 50mg Take 50 mg [facility] thiazide 50 2-23 by mouth ity of mg tablet 00:00: daily. [facility] hydroCHLORO 0 Yes 50mg Take 50 mg [facility] thiazide 50 2-23 by mouth ity of mg tablet 00:00: daily. [facility] hydroCHLORO 0 Yes 50mg Take 50 mg [facility] thiazide 50 2-23 by mouth ity of mg tablet 00:00: daily. [place] [facility] hydroCHLORO 2-0 Yes 50mg Take 50 mg [facility] thiazide 50 2-23 by mouth ity of mg tablet 00:00: daily. [place] [facility] hydroCHLORO 2-0 Yes 50mg Take 50 mg [facility] thiazide 50 2-23 by mouth ity of mg tablet 00:00: daily. [place] [facility] hydroCHLORO 2021-0 Yes 50mg Take 50 mg [facility] thiazide 50 2-23 by mouth ity of mg tablet 00:00: daily. [place] [facility] hydroCHLORO 2021-0 Yes 50mg Take 50 mg [facility] thiazide 50 2-23 by mouth ity of mg tablet 00:00: daily. [place] [facility] hydroCHLORO 2021-0 Yes 50mg Take 50 mg [facility] thiazide 50 2-23 by mouth ity of mg tablet 00:00: daily. [place] [facility] hydroCHLORO 2-0 Yes 50mg Take 50 mg [facility] thiazide 50 2-23 by mouth ity of mg tablet 00:00: daily. [place] [facility] hydroCHLORO 2021-0 Yes 50mg Take 50 mg [facility] thiazide 50 2-23 by mouth ity of mg tablet 00:00: daily. [place] [facility] hydroCHLORO 2021-0 Yes 50mg Take 50 mg [facility] thiazide 50 2-23 by mouth ity of mg tablet 00:00: daily. [place] [facility] hydroCHLORO 2-0 Yes 50mg Take 50 mg [facility] thiazide 50 2-23 by mouth ity of mg tablet 00:00: daily. [place] [facility] hydroCHLORO 2-0 Yes 50mg Take 50 mg [facility] thiazide 50 2-23 by mouth ity of mg tablet 00:00: daily. [place] [facility] hydroCHLORO 2-0 Yes 50mg Take 50 mg [facility] thiazide 50 2-23 by mouth ity of mg tablet 00:00: daily. [place] [facility] hydroCHLORO 2-0 Yes 50mg Take 50 mg [facility] thiazide 50 2-23 by mouth ity of mg tablet 00:00: daily. [address] hydroCHLORO 2-0 Yes 50mg Take 50 mg [facility] thiazide 50 2-23 by mouth ity of mg tablet 00:00: daily. [place] [facility] hydroCHLORO 2-0 Yes 50mg Take 50 mg [facility] thiazide 50 2-23 by mouth ity of mg tablet 00:00: daily. [place] [facility] hydroCHLORO 2022-0 Yes 50mg Take 50 mg [facility] thiazide 50 2-23 by mouth ity of mg tablet 00:00: daily. [place] [facility] hydroCHLORO 2022-0 Yes 50mg Take 50 mg [facility] thiazide 50 2-23 by mouth ity of mg tablet 00:00: daily. [place] [facility] hydroCHLORO 2022-0 Yes 50mg Take 50 mg [facility] thiazide 50 2-23 by mouth ity of mg tablet 00:00: daily. [place] [facility] hydroCHLORO 2022-0 Yes 50mg Take 50 mg [facility] thiazide 50 2-23 by mouth ity of mg tablet 00:00: daily. [place] [facility] hydroCHLORO 2022-0 Yes 50mg Take 50 mg [facility] thiazide 50 2-23 by mouth ity of mg tablet 00:00: daily. [place] [facility] hydroCHLORO 2022-0 Yes 50mg Take 50 mg [facility] thiazide 50 2-23 by mouth ity of mg tablet 00:00: daily. [place] [facility] hydroCHLORO 2022-0 Yes 50mg Take 50 mg [facility] thiazide 50 2-23 by mouth ity of mg tablet 00:00: daily. [place] [facility] hydroCHLORO 2022-0 Yes 50mg Take 50 mg [facility] thiazide 50 2-23 by mouth ity of mg tablet 00:00: daily. [place] [facility] hydroCHLORO 2022-0 Yes 50mg Take 50 mg [facility] thiazide 50 2-23 by mouth ity of mg tablet 00:00: daily. [place] [facility] hydroCHLORO 2022-0 Yes 50mg Take 50 mg [facility] thiazide 50 2-23 by mouth ity of mg tablet 00:00: daily. [place] [facility] hydroCHLORO 2022-0 Yes 50mg Take 50 mg [facility] thiazide 50 2-23 by mouth ity of mg tablet 00:00: daily. [place] [facility] hydroCHLORO 2022-0 Yes 50mg Take 50 mg [facility] thiazide 50 2-23 by mouth ity of mg tablet 00:00: daily. [place] [facility] hydroCHLORO 2022-0 Yes 50mg Take 50 mg [facility] thiazide 50 2-23 by mouth ity of mg tablet 00:00: daily. [place] [facility] hydroCHLORO 2022-0 Yes 50mg Take 50 mg [facility] thiazide 50 2-23 by mouth ity of mg tablet 00:00: daily. [place] [facility] hydroCHLORO 2-0 Yes 50mg Take 50 mg [facility] thiazide 50 2-23 by mouth ity of mg tablet 00:00: daily. [place] [facility] hydroCHLORO 2-0 Yes 50mg Take 50 mg [facility] thiazide 50 2-23 by mouth ity of mg tablet 00:00: daily. [place] [facility] hydroCHLORO 2021-0 Yes 50mg Take 50 mg [facility] thiazide 50 2-23 by mouth ity of mg tablet 00:00: daily. [place] [facility] hydroCHLORO 2-0 Yes 50mg Take 50 mg [facility] thiazide 50 2-23 by mouth ity of mg tablet 00:00: daily. [place] [facility] hydroCHLORO 2021-0 Yes 50mg Take 50 mg [facility] thiazide 50 2-23 by mouth ity of mg tablet 00:00: daily. [address] hydroCHLORO 2021-0 Yes 50mg Take 50 mg [facility] thiazide 50 2-23 by mouth ity of mg tablet 00:00: daily. [place] [facility] hydroCHLORO 2021-0 Yes 50mg Take 50 mg [facility] thiazide 50 2-23 by mouth ity of mg tablet 00:00: daily. [place] [facility] hydroCHLORO 2-0 Yes 50mg Take 50 mg [facility] thiazide 50 2-23 by mouth ity of mg tablet 00:00: daily. [address] hydroCHLORO 2-0 Yes 50mg Take 50 mg [facility] thiazide 50 2-23 by mouth ity of mg tablet 00:00: daily. [address] hydroCHLORO 2-0 Yes 50mg Take 50 mg [facility] thiazide 50 2-23 by mouth ity of mg tablet 00:00: daily. [address] hydroCHLORO 2-0 Yes 50mg Take 50 mg [facility] thiazide 50 2-23 by mouth ity of mg tablet 00:00: daily. [address] hydroCHLORO 2-0 Yes 50mg Take 50 mg [facility] thiazide 50 2-23 by mouth ity of mg tablet 00:00: daily. [address] hydrOXYzine 2021-0 Yes Take by Uni vers 10 mg 2-14 mouth ity of tablet 13:48: every 6 [place] 20 (six) Medical [facility]. Branch hydrOXYzine 2021-0 Yes Take by Uni vers 10 mg 2-14 mouth ity of tablet 13:48: every 6 [place] 20 (six) Medical hours. Branch hydrOXYzine 2021-0 Yes Take by Uni vers 10 mg 2-14 mouth ity of tablet 13:48: every 6 [place] 20 (six) Medical hours. Branch hydrOXYzine 2021-0 Yes Take by Uni vers 10 mg 2-14 mouth ity of tablet 13:48: every 6 [place] 20 (six) Medical hours. Branch hydrOXYzine 2021-0 Yes Take by Uni vers 10 mg 2-14 mouth ity of tablet 13:48: every 6 [place] 20 (six) Medical hours. Branch hydrOXYzine 2021-0 Yes Take by Uni vers 10 mg 2-14 mouth ity of tablet 13:48: every 6 [place] 20 (six) Medical hours. Branch levonorgest 2020-06 Yes 1{devic 1 Device Univers reL 2-28 e} by ity of (MIRENA) 20 09:31: Intrauteri [place] mcg/24 54 ne route Medical hours (6 once now. Branch yrs) 52 mg IUD levonorgest 2020-06 Yes 1{devic 1 Device [facility] reL 2-28 e} by ity of (MIRENA) 20 09:31: Intrauteri [place] mcg/24 54 ne route Medical hours (6 once now. Branch yrs) 52 mg IUD levonorgest 2020-06 Yes 1{devic 1 Device [facility] reL 2-28 e} by ity of (MIRENA) 20 09:31: Intrauteri [place] mcg/24 54 ne route Medical hours (6 once now. Branch yrs) 52 mg IUD levonorgest 2020-06 Yes 1{devic 1 Device [facility] reL 2-28 e} by ity of (MIRENA) 20 09:31: Intrauteri [place] mcg/24 54 ne route Medical hours (6 once now. Branch yrs) 52 mg IUD levonorgest 2020-06 Yes 1{devic 1 Device [facility] reL 2-28 e} by ity of (MIRENA) 20 09:31: Intrauteri [place] mcg/24 54 ne route Medical hours (6 once now. Branch yrs) 52 mg IUD levonorgest 2020-06 Yes 1{devic 1 Device [facility] reL 2-28 e} by ity of (MIRENA) 20 09:31: Intrauteri [place] mcg/24 54 ne route Medical hours (6 once now. Branch yrs) 52 mg IUD levonorgest 2020-06 Yes 1{devic 1 Device [facility] reL 2-28 e} by ity of (MIRENA) 20 09:31: Intrauteri [place] mcg/24 54 ne route Medical hours (6 once now. Branch yrs) 52 mg IUD levonorgest 2020-06 Yes 1{devic 1 Device [facility] reL 2-28 e} by ity of (MIRENA) 20 09:31: Intrauteri [place] mcg/24 54 ne route Medical hours (6 once now. Branch yrs) 52 mg IUD levonorgest 2020-06 Yes 1{devic 1 Device [facility] reL 2-28 e} by ity of (MIRENA) 20 09:31: Intrauteri [place] mcg/24 54 ne route Medical hours (6 once now. Branch yrs) 52 mg IUD levonorgest 2020-06 Yes 1{devic 1 Device [facility] reL 2-28 e} by ity of (MIRENA) 20 09:31: Intrauteri [place] mcg/24 54 ne route Medical hours (6 once now. Branch yrs) 52 mg IUD levonorgest 2020-06 Yes 1{devic 1 Device [facility] reL 2-28 e} by ity of (MIRENA) 20 09:31: Intrauteri [place] mcg/24 54 ne route Medical hours (6 once now. Branch yrs) 52 mg IUD levonorgest 2020-06 Yes 1{devic 1 Device [facility] reL 2-28 e} by ity of (MIRENA) 20 09:31: Intrauteri [place] mcg/24 54 ne route Medical hours (6 once now. Branch yrs) 52 mg IUD levonorgest 2020-06 Yes 1{devic 1 Device [facility] reL 2-28 e} by ity of (MIRENA) 20 09:31: Intrauteri [place] mcg/24 54 ne route Medical hours (6 once now. Branch yrs) 52 mg IUD levonorgest 2020-06 Yes 1{devic 1 Device [facility] reL 2-28 e} by ity of (MIRENA) 20 09:31: Intrauteri [place] mcg/24 54 ne route Medical hours (6 once now. Branch yrs) 52 mg IUD levonorgest 2020-06 Yes 1{devic 1 Device [facility] reL 2-28 e} by ity of (MIRENA) 20 09:31: Intrauteri [place] mcg/24 54 ne route Medical hours (6 once now. Branch yrs) 52 mg IUD levonorgest 2020-06 Yes 1{devic 1 Device [facility] reL 2-28 e} by ity of (MIRENA) 20 09:31: Intrauteri [place] mcg/24 54 ne route Medical hours (6 once now. Branch yrs) 52 mg IUD levonorgest 2020-06 Yes 1{devic 1 Device [facility] reL 2-28 e} by ity of (MIRENA) 20 09:31: Intrauteri [place] mcg/24 54 ne route Medical hours (6 once now. Branch yrs) 52 mg IUD levonorgest 2020-06 Yes 1{devic 1 Device [facility] reL 2-28 e} by ity of (MIRENA) 20 09:31: Intrauteri [place] mcg/24 54 ne route Medical hours (6 once now. Branch yrs) 52 mg IUD levonorgest 2020-06 Yes 1{devic 1 Device [facility] reL 2-28 e} by ity of (MIRENA) 20 09:31: Intrauteri [place] mcg/24 54 ne route Medical hours (6 once now. Branch yrs) 52 mg IUD levonorgest 2020-06 Yes 1{devic 1 Device [facility] reL 2-28 e} by ity of (MIRENA) 20 09:31: Intrauteri [place] mcg/24 54 ne route Medical hours (6 once now. Branch yrs) 52 mg IUD levonorgest 2020-06 Yes 1{devic 1 Device [facility] reL 2-28 e} by ity of (MIRENA) 20 09:31: Intrauteri [place] mcg/24 54 ne route Medical hours (6 once now. Branch yrs) 52 mg IUD levonorgest 2020-06 Yes 1{devic 1 Device [facility] reL 2-28 e} by ity of (MIRENA) 20 09:31: Intrauteri [place] mcg/24 54 ne route Medical hours (6 once now. Branch yrs) 52 mg IUD levonorgest 2020-06 Yes 1{devic 1 Device [facility] reL 2-28 e} by ity of (MIRENA) 20 09:31: Intrauteri [place] mcg/24 54 ne route Medical hours (6 once now. Branch yrs) 52 mg IUD levonorgest 2020-06 Yes 1{devic 1 Device [facility] reL 2-28 e} by ity of (MIRENA) 20 09:31: Intrauteri [place] mcg/24 54 ne route Medical hours (6 once now. Branch yrs) 52 mg IUD levonorgest 2020-06 Yes 1{devic 1 Device [facility] reL 2-28 e} by ity of (MIRENA) 20 09:31: Intrauteri [place] mcg/24 54 ne route Medical hours (6 once now. Branch yrs) 52 mg IUD levonorgest 2020-06 Yes 1{devic 1 Device [facility] reL 2-28 e} by ity of (MIRENA) 20 09:31: Intrauteri [place] mcg/24 54 ne route Medical hours (6 once now. Branch yrs) 52 mg IUD levonorgest 2020-06 Yes 1{devic 1 Device [facility] reL 2-28 e} by ity of (MIRENA) 20 09:31: Intrauteri [place] mcg/24 54 ne route Medical hours (6 once now. Branch yrs) 52 mg IUD levonorgest 2020-06 Yes 1{devic 1 Device [facility] reL 2-28 e} by ity of (MIRENA) 20 09:31: Intrauteri [place] mcg/24 54 ne route Medical hours (6 once now. Branch yrs) 52 mg IUD levonorgest 2020-06 Yes 1{devic 1 Device [facility] reL 2-28 e} by ity of (MIRENA) 20 09:31: Intrauteri [place] mcg/24 54 ne route Medical hours (6 once now. Branch yrs) 52 mg IUD multivitami 2020-06 Yes 1{tbl} QD Take [address] [facility] per 1-29 tablet by [facility] tablet 14:25: mouth Medical 27 daily. Center Immunizations Ordered Filled Immunization Date Status Comments Sourc e Immunization Name Name Influenza Virus 2022-04-24 Completed Universit y of Vaccine Quad IM, 00:00:00 [place] [facility] Preserv and ABX Branch Free 6 MO-64 YRS Influenza Virus 2022-04-24 Completed Universit y of Vaccine Quad IM, 00:00:00 [place] [facility] Preserv and ABX Branch Free 6 MO-64 YRS Influenza Virus 2022-04-24 Completed Universit y of Vaccine Quad IM, 00:00:00 [place] [facility] Preserv and ABX Branch Free 6 MO-64 YRS Influenza Virus 2022-04-24 Completed Universit y of Vaccine Quad IM, 00:00:00 [place] [facility] Preserv and ABX Branch Free 6 MO-64 YRS Influenza Virus 2022-04-24 Completed Universit y of Vaccine Quad IM, 00:00:00 [place] [facility] Preserv and ABX Branch Free 6 MO-64 YRS Influenza Virus 2022-04-24 Completed Universit y of Vaccine Quad IM, 00:00:00 [place] [facility] Preserv and ABX Branch Free 6 MO-64 YRS Influenza Virus 2022-04-24 Completed Universit y of Vaccine Quad IM, 00:00:00 [place] [facility] Preserv and ABX Branch Free 6 MO-64 YRS Influenza Virus 2022-04-24 Completed Universit y of Vaccine Quad IM, 00:00:00 [place] [facility] Preserv and ABX Branch Free 6 MO-64 YRS Influenza Virus 2022-04-24 Completed Universit y of Vaccine Quad IM, 00:00:00 [place] [facility] Preserv and ABX Branch Free 6 MO-64 YRS Influenza Virus 2022-04-24 Completed Universit y of Vaccine Quad IM, 00:00:00 [place] [facility] Preserv and ABX Branch Free 6 MO-64 YRS Influenza Virus 2022-04-24 Completed Universit y of Vaccine Quad IM, 00:00:00 [place] [facility] Preserv and ABX Branch Free 6 MO-64 YRS Influenza Virus 2022-04-24 Completed Universit y of Vaccine Quad IM, 00:00:00 [place] [facility] Preserv and ABX Branch Free 6 MO-64 YRS Influenza Virus 2022-04-24 Completed Universit y of Vaccine Quad IM, 00:00:00 [place] [facility] Preserv and ABX Branch Free 6 MO-64 YRS Influenza Virus 2022-04-24 Completed Universit y of Vaccine Quad IM, 00:00:00 [place] [facility] Preserv and ABX Branch Free 6 MO-64 YRS Influenza Virus 2022-04-24 Completed Universit y of Vaccine Quad IM, 00:00:00 [place] [facility] Preserv and ABX Branch Free 6 MO-64 YRS Influenza Virus 2022-04-24 Completed Universit y of Vaccine Quad IM, 00:00:00 [place] [facility] Preserv and ABX Branch Free 6 MO-64 YRS Influenza Virus 2022-04-24 Completed Universit y of Vaccine Quad IM, 00:00:00 [place] [facility] Preserv and ABX Branch Free 6 MO-64 YRS Influenza Virus 2022-04-24 Completed Universit y of Vaccine Quad IM, 00:00:00 [place] [facility] Preserv and ABX Branch Free 6 MO-64 YRS Influenza Virus 2022-04-24 Completed Universit y of Vaccine Quad IM, 00:00:00 [place] [facility] Preserv and ABX Branch Free 6 MO-64 YRS Influenza Virus 2022-04-24 Completed Universit y of Vaccine Quad IM, 00:00:00 [place] [facility] Preserv and ABX Branch Free 6 MO-64 YRS Influenza Virus 2022-04-24 Completed Universit y of Vaccine Quad IM, 00:00:00 [place] [facility] Preserv and ABX Branch Free 6 MO-64 YRS Influenza Virus 2022-04-24 Completed Universit y of Vaccine Quad IM, 00:00:00 [place] [facility] Preserv and ABX Branch Free 6 MO-64 YRS Influenza Virus 2022-04-24 Completed Universit y of Vaccine Quad IM, 00:00:00 [place] [facility] Preserv and ABX Branch Free 6 MO-64 YRS Influenza Virus 2022-04-24 Completed Universit y of Vaccine Quad IM, 00:00:00 [place] [facility] Preserv and ABX Branch Free 6 MO-64 YRS Influenza Virus 2022-04-24 Completed Universit y of Vaccine Quad IM, 00:00:00 [place] [facility] Preserv and ABX Branch Free 6 MO-64 YRS Influenza Virus 2022-04-24 Completed Universit y of Vaccine Quad IM, 00:00:00 [place] [facility] Preserv and ABX Branch Free 6 MO-64 YRS Influenza Virus 2022-04-24 Completed Universit y of Vaccine Quad IM, 00:00:00 [place] [facility] Preserv and ABX Branch Free 6 MO-64 YRS Influenza Virus 2022-04-24 Completed Universit y of Vaccine Quad IM, 00:00:00 [place] [facility] Preserv and ABX Branch Free 6 MO-64 YRS Influenza Virus 2022-04-24 Completed Universit y of Vaccine Quad IM, 00:00:00 [place] [facility] Preserv and ABX Branch Free 6 MO-64 YRS Influenza Virus 2022-04-24 Completed Universit y of Vaccine Quad IM, 00:00:00 [place] [facility] Preserv and ABX Branch Free 6 MO-64 YRS Influenza Virus 2022-04-24 Completed Universit y of Vaccine Quad IM, 00:00:00 [place] [facility] Preserv and ABX Branch Free 6 MO-64 YRS Influenza Virus 2022-04-24 Completed Universit y of Vaccine Quad IM, 00:00:00 [place] [facility] Preserv and ABX Branch Free 6 MO-64 YRS Influenza Virus 2022-04-24 Completed Universit y of Vaccine Quad IM, 00:00:00 [place] [facility] Preserv and ABX Branch Free 6 MO-64 YRS Influenza Virus 2022-04-24 Completed Universit y of Vaccine Quad IM, 00:00:00 [place] [facility] Preserv and ABX Branch Free 6 MO-64 YRS Influenza Virus 2022-04-24 Completed Universit y of Vaccine Quad IM, 00:00:00 [place] [facility] Preserv and ABX Branch Free 6 MO-64 YRS Influenza Virus 2022-04-24 Completed Universit y of Vaccine Quad IM, 00:00:00 [place] [facility] Preserv and ABX Branch Free 6 MO-64 YRS Influenza Virus 2022-04-24 Completed Universit y of Vaccine Quad IM, 00:00:00 [place] [facility] Preserv and ABX Branch Free 6 MO-64 YRS Influenza Virus 2022-04-24 Completed Universit y of Vaccine Quad IM, 00:00:00 [place] [facility] Preserv and ABX Branch Free 6 MO-64 YRS Influenza Virus 2022-04-24 Completed Universit y of Vaccine Quad IM, 00:00:00 [place] [facility] Preserv and ABX Branch Free 6 MO-64 YRS SARS-COV-2 COVID-19 2021-06-19 Completed Unive rsity of MODERNA 0.25ML 00:00:00 [place] [facility] BOOSTER VACCINE Branch SARS-COV-2 COVID-19 2021-06-19 Completed Unive rsity of MODERNA 0.25ML 00:00:00 [place] [facility] BOOSTER VACCINE Branch SARS-COV-2 COVID-19 2021-06-19 Completed Unive rsity of MODERNA 0.25ML 00:00:00 [place] [facility] BOOSTER VACCINE Branch SARS-COV-2 COVID-19 2021-06-19 Completed Unive rsity of MODERNA 0.25ML 00:00:00 [place] [facility] BOOSTER VACCINE Branch SARS-COV-2 COVID-19 2021-06-19 Completed Unive rsity of MODERNA 0.25ML 00:00:00 [place] [facility] BOOSTER VACCINE Branch SARS-COV-2 COVID-19 2021-06-19 Completed Unive rsity of MODERNA 0.25ML 00:00:00 [place] [facility] BOOSTER VACCINE Branch SARS-COV-2 COVID-19 2021-06-19 Completed Unive rsity of MODERNA 0.25ML 00:00:00 [place] [facility] BOOSTER VACCINE Branch SARS-COV-2 COVID-19 2021-06-19 Completed Unive rsity of MODERNA 0.25ML 00:00:00 [place] [facility] BOOSTER VACCINE Branch SARS-COV-2 COVID-19 2021-06-19 Completed Unive rsity of MODERNA 0.25ML 00:00:00 [place] [facility] BOOSTER VACCINE Branch SARS-COV-2 COVID-19 2021-06-19 Completed Unive rsity of MODERNA 0.25ML 00:00:00 [place] [facility] BOOSTER VACCINE Branch SARS-COV-2 COVID-19 2021-06-19 Completed Unive rsity of MODERNA 0.25ML 00:00:00 [place] [facility] BOOSTER VACCINE Branch SARS-COV-2 COVID-19 2021-06-19 Completed Unive rsity of MODERNA 0.25ML 00:00:00 [place] [facility] BOOSTER VACCINE Branch SARS-COV-2 COVID-19 2021-06-19 Completed Unive rsity of MODERNA 0.25ML 00:00:00 [place] [facility] BOOSTER VACCINE Branch SARS-COV-2 COVID-19 2021-06-19 Completed Unive rsity of MODERNA 0.25ML 00:00:00 [place] [facility] BOOSTER VACCINE Branch SARS-COV-2 COVID-19 2021-06-19 Completed Unive rsity of MODERNA 0.25ML 00:00:00 [place] [facility] BOOSTER VACCINE Branch SARS-COV-2 COVID-19 2021-06-19 Completed Unive rsity of MODERNA 0.25ML 00:00:00 [place] [facility] BOOSTER VACCINE Branch SARS-COV-2 COVID-19 2021-06-19 Completed Unive rsity of MODERNA 0.25ML 00:00:00 [place] [facility] BOOSTER VACCINE Branch SARS-COV-2 COVID-19 2021-06-19 Completed Unive rsity of MODERNA 0.25ML 00:00:00 [place] [facility] BOOSTER VACCINE Branch SARS-COV-2 COVID-19 2021-06-19 Completed Unive rsity of MODERNA 0.25ML 00:00:00 [place] [facility] BOOSTER VACCINE Branch SARS-COV-2 COVID-19 2021-06-19 Completed Unive rsity of MODERNA 0.25ML 00:00:00 [place] [facility] BOOSTER VACCINE Branch SARS-COV-2 COVID-19 2021-06-19 Completed Unive rsity of MODERNA 0.25ML 00:00:00 [place] [facility] BOOSTER VACCINE Branch SARS-COV-2 COVID-19 2021-06-19 Completed Unive rsity of MODERNA 0.25ML 00:00:00 [place] [facility] BOOSTER VACCINE Branch SARS-COV-2 COVID-19 2021-06-19 Completed Unive rsity of MODERNA 0.25ML 00:00:00 [place] [facility] BOOSTER VACCINE Branch SARS-COV-2 COVID-19 2021-06-19 Completed Unive rsity of MODERNA 0.25ML 00:00:00 [place] [facility] BOOSTER VACCINE Branch SARS-COV-2 COVID-19 2021-06-19 Completed Unive rsity of MODERNA 0.25ML 00:00:00 [place] [facility] BOOSTER VACCINE Branch SARS-COV-2 COVID-19 2021-06-19 Completed Unive rsity of MODERNA 0.25ML 00:00:00 [place] [facility] BOOSTER VACCINE Branch SARS-COV-2 COVID-19 2021-06-19 Completed Unive rsity of MODERNA 0.25ML 00:00:00 [place] [facility] BOOSTER VACCINE Branch SARS-COV-2 COVID-19 2021-06-19 Completed Unive rsity of MODERNA 0.25ML 00:00:00 [place] [facility] BOOSTER VACCINE Branch SARS-COV-2 COVID-19 2021-06-19 Completed Unive rsity of MODERNA 0.25ML 00:00:00 [place] [facility] BOOSTER VACCINE Branch SARS-COV-2 COVID-19 2021-06-19 Completed Unive rsity of MODERNA 0.25ML 00:00:00 [place] [facility] BOOSTER VACCINE Branch SARS-COV-2 COVID-19 2021-06-19 Completed Unive rsity of MODERNA 0.25ML 00:00:00 [place] [facility] BOOSTER VACCINE Branch SARS-COV-2 COVID-19 2021-06-19 Completed Unive rsity of MODERNA 0.25ML 00:00:00 [place] [facility] BOOSTER VACCINE Branch SARS-COV-2 COVID-19 2021-06-19 Completed Unive rsity of MODERNA 0.25ML 00:00:00 [place] [facility] BOOSTER VACCINE Branch SARS-COV-2 COVID-19 2021-06-19 Completed Unive rsity of MODERNA 0.25ML 00:00:00 [place] [facility] BOOSTER VACCINE Branch SARS-COV-2 COVID-19 2021-06-19 Completed Unive rsity of MODERNA 0.25ML 00:00:00 [place] [facility] BOOSTER VACCINE Branch SARS-COV-2 COVID-19 2021-06-19 Completed Unive rsity of MODERNA 0.25ML 00:00:00 [place] [facility] BOOSTER VACCINE Branch SARS-COV-2 COVID-19 2021-06-19 Completed Unive rsity of MODERNA 0.25ML 00:00:00 [place] [facility] BOOSTER VACCINE Branch SARS-COV-2 COVID-19 2021-06-19 Completed Unive rsity of MODERNA 0.25ML 00:00:00 [place] [facility] BOOSTER VACCINE Branch SARS-COV-2 COVID-19 2021-06-19 Completed Unive rsity of MODERNA 0.25ML 00:00:00 [place] [facility] BOOSTER VACCINE Branch SARS-COV-2 COVID-19 2021-06-19 Completed Unive rsity of MODERNA 0.25ML 00:00:00 [place] [facility] BOOSTER VACCINE Branch SARS-COV-2 COVID-19 2021-06-19 Completed Unive rsity of MODERNA 0.25ML 00:00:00 [place] [facility] BOOSTER VACCINE Branch SARS-COV-2 COVID-19 2021-06-19 Completed Unive rsity of MODERNA 0.25ML 00:00:00 [place] [facility] BOOSTER VACCINE Branch SARS-COV-2 COVID-19 2021-06-19 Completed Unive rsity of MODERNA 0.25ML 00:00:00 [place] [facility] BOOSTER VACCINE Branch SARS-COV-2 COVID-19 2021-06-19 Completed Unive rsity of MODERNA 0.25ML 00:00:00 [place] [facility] BOOSTER VACCINE Branch SARS-COV-2 COVID-19 2021-06-19 Completed Unive rsity of MODERNA 0.25ML 00:00:00 [place] [facility] BOOSTER VACCINE Branch SARS-COV-2 COVID-19 2021-06-19 Completed Unive rsity of MODERNA 0.25ML 00:00:00 [facility] sindhu BOOSTER VACCINE Branch Influenza Virus 2021-03-22 Completed Univers[facility] of Vaccine 00:00:00 [facility] Influenza Virus 2021-03-22 Completed Universit y of Vaccine 00:00:00 [facility] Influenza Virus 2021-03-22 Completed Universit y of Vaccine 00:00:00 [facility] Influenza Virus 2021-03-22 Completed Universit y of Vaccine 00:00:00 [facility] Influenza Virus 2021-03-22 Completed Universit y of Vaccine 00:00:00 [facility] Influenza Virus 2021-03-22 Completed Universit y of Vaccine 00:00:00 [facility] Influenza Virus 2021-03-22 Completed Universit y of Vaccine 00:00:00 [facility] Influenza Virus 2021-03-22 Completed Universit y of Vaccine 00:00:00 [facility] Influenza Virus 2021-03-22 Completed Universit y of Vaccine 00:00:00 [facility] Influenza Virus 2021-03-22 Completed Universit y of Vaccine 00:00:00 [facility] Influenza Virus 2021-03-22 Completed Universit y of Vaccine 00:00:00 [facility] Influenza Virus 2021-03-22 Completed Universit y of Vaccine 00:00:00 [facility] Influenza Virus 2021-03-22 Completed Universit y of Vaccine 00:00:00 [facility] Influenza Virus 2021-03-22 Completed Universit y of Vaccine 00:00:00 [facility] Influenza Virus 2021-03-22 Completed Universit y of Vaccine 00:00:00 [facility] Influenza Virus 2021-03-22 Completed Universit y of Vaccine 00:00:00 [facility] Influenza Virus 2021-03-22 Completed Universit y of Vaccine 00:00:00 [facility] Influenza Virus 2021-03-22 Completed Universit y of Vaccine 00:00:00 [facility] Influenza Virus 2021-03-22 Completed Universit y of Vaccine 00:00:00 [facility] Influenza Virus 2021-03-22 Completed Universit y of Vaccine 00:00:00 [facility] Influenza Virus 2021-03-22 Completed Universit y of Vaccine 00:00:00 [facility] Influenza Virus 2021-03-22 Completed Universit y of Vaccine 00:00:00 [facility] Influenza Virus 2021-03-22 Completed Universit y of Vaccine 00:00:00 [facility] Influenza Virus 2021-03-22 Completed Universit y of Vaccine 00:00:00 [facility] Influenza Virus 2021-03-22 Completed Universit y of Vaccine 00:00:00 [facility] Influenza Virus 2021-03-22 Completed Universit y of Vaccine 00:00:00 [facility] Influenza Virus 2021-03-22 Completed Universit y of Vaccine 00:00:00 [facility] Influenza Virus 2021-03-22 Completed Universit y of Vaccine 00:00:00 [facility] Influenza Virus 2021-03-22 Completed [facility]ine 00:00:00 [facility] Influenza Virus 2021-03-22 Completed [facility] Vaccine 00:00:00 [facility] Influenza Virus 2021-03-22 Completed [facility] Vaccine 00:00:00 [facility] Influenza Virus 2021-03-22 Completed [facility] Vaccine 00:00:00 [facility] Influenza Virus 2021-03-22 Completed [facility] Vaccine 00:00:00 [facility] Influenza Virus 2021-03-22 Completed [facility] Vaccine 00:00:00 [facility] Influenza Virus 2021-03-22 Completed [facility] Vaccine 00:00:00 [facility] Influenza Virus 2021-03-22 Completed [facility] Vaccine 00[facility]00:00 [facility] Influenza Virus 2021-03-22 Completed [facility] Vaccine 00:00:00 [facility] Influenza Virus 2021-03-22 Completed [facility] Vaccine 00:00:00 [facility] Influenza Virus 2021-03-22 Completed [facility] Vaccine 00:00:00 [facility] Influenza Virus 2021-03-22 Completed [facility] Vaccine 00:00:00 [facility] Influenza Virus 2021-03-22 Completed [facility] Vaccine 00:00:00 [facility] Influenza Virus 2021-03-22 Completed [facility] Vaccine 00:00:00 [facility] Influenza Virus 2021-03-22 Completed [facility] Vaccine 00:00:00 [facility] Influenza Virus 2021-03-22 Completed [facility] Vaccine 00:00:00 [facility] Influenza Virus 2021-03-22 Completed [facility] Vaccine 00:00:00 [facility] Influenza Virus 2021-03-22 Completed [facility] Vaccine 00:00:00 [facility] SARS-COV-2 COVID-19 2020-08-21 Completed [facility] of JITENDRA/J&J VACCINE 00:00:00 [facility] SARS-COV-2 COVID-19 2020-08-21 Completed [facility] JITENDRA/J&J VACCINE 00:00:00 [facility] SARS-COV-2 COVID-19 2020-08-21 Completed [facility] JITENDRA/J&J VACCINE 00:00:00 [facility] SARS-COV-2 COVID-19 2020-08-21 Completed [facility] JITENDRA/J&J VACCINE 00:00:00 [facility] SARS-COV-2 COVID-19 2020-08-21 Completed [facility] JITENDRA/J&J VACCINE 00:00:00 [facility] SARS-COV-2 COVID-19 2020-08-21 Completed [facility] JITENDRA/J&J VACCINE 00:00:00 [facility] SARS-COV-2 COVID-19 2020-08-21 Completed [facility] JITENDRA/J&J VACCINE 00:00:00 [facility] SARS-COV-2 COVID-19 2020-08-21 Completed [facility] JITENDRA/J&J VACCINE 00:00:00 [facility] SARS-COV-2 COVID-19 2020-08-21 Completed [facility] JITENDRA/J&J VACCINE 00:00:00 [facility] SARS-COV-2 COVID-19 2020-08-21 Completed [facility] JITENDRA/J&J VACCINE 00:00:00 [facility] SARS-COV-2 COVID-19 2020-08-21 Completed [facility] JITENDRA/J&J VACCINE 00:00:00 [facility] SARS-COV-2 COVID-19 2020-08-21 Completed [facility] JITENDRA/J&J VACCINE 00:00:00 [facility] SARS-COV-2 COVID-19 2020-08-21 Completed [facility] JITENDRA/J&J VACCINE 00:00:00 [facility] SARS-COV-2 COVID-19 2020-08-21 Completed [facility] JITENDRA/J&J VACCINE 00:00:00 [facility] SARS-COV-2 COVID-19 2020-08-21 Completed [facility] JITENDRA/J&J VACCINE 00:00:00 [facility] SARS-COV-2 COVID-19 2020-08-21 Completed [facility] JITENDRA/J&J VACCINE 00:00:00 [facility] SARS-COV-2 COVID-19 2020-08-21 Completed [facility] JITENDRA/J&J VACCINE 00:00:00 [facility] SARS-COV-2 COVID-19 2020-08-21 Completed [facility] JITENDRA/J&J VACCINE 00:00:00 [facility] SARS-COV-2 COVID-19 2020-08-21 Completed [facility] JITENDRA/J&J VACCINE 00:00:00 [facility] SARS-COV-2 COVID-19 2020-08-21 Completed [facility] JITENDRA/J&J VACCINE 00:00:00 [facility] SARS-COV-2 COVID-19 2020-08-21 Completed [facility] JITENDRA/J&J VACCINE 00:00:00 [facility] SARS-COV-2 COVID-19 2020-08-21 Completed [facility] JITENDRA/J&J VACCINE 00:00:00 [facility] SARS-COV-2 COVID-19 2020-08-21 Completed [facility] JITENDRA/J&J VACCINE 00:00:00 [facility] SARS-COV-2 COVID-19 2020-08-21 Completed [facility] JITENDRA/J&J VACCINE 00:00:00 [facility] SARS-COV-2 COVID-19 2020-08-21 Completed [facility] JITENDRA/J&J VACCINE 00:00:00 [facility] SARS-COV-2 COVID-19 2020-08-21 Completed [facility] JITENDRA/J&J VACCINE 00:00:00 [facility] SARS-COV-2 COVID-19 2020-08-21 Completed [facility] JITENDRA/J&J VACCINE 00:00:00 [facility] SARS-COV-2 COVID-19 2020-08-21 Completed [facility] JITENDRA/J&J VACCINE 00:00:00 [facility] SARS-COV-2 COVID-19 2020-08-21 Completed [facility] JITENDRA/J&J VACCINE 00:00:00 [facility] SARS-COV-2 COVID-19 2020-08-21 Completed [facility] JITENDRA/J&J VACCINE 00:00:00 [facility] SARS-COV-2 COVID-19 2020-08-21 Completed [facility] JITENDRA/J&J VACCINE 00:00:00 [facility] SARS-COV-2 COVID-19 2020-08-21 Completed [facility] JITENDRA/J&J VACCINE 00:00:00 [facility] SARS-COV-2 COVID-19 2020-08-21 Completed [facility] JITENDRA/J&J VACCINE 00:00:00 [facility] SARS-COV-2 COVID-19 2020-08-21 Completed [facility] JITENDRA/J&J VACCINE 00:00:00 [facility] SARS-COV-2 COVID-19 2020-08-21 Completed [facility] JITENDRA/J&J VACCINE 00:00:00 [facility] SARS-COV-2 COVID-19 2020-08-21 Completed [facility] JITENDRA/J&J VACCINE 00:00:00 [facility] SARS-COV-2 COVID-19 2020-08-21 Completed [facility] JITENDRA/J&J VACCINE 00:00:00 [facility] SARS-COV-2 COVID-19 2020-08-21 Completed [facility] JITENDRA/J&J VACCINE 00:00:00 [facility] SARS-COV-2 COVID-19 2020-08-21 Completed [facility] JITENDRA/J&J VACCINE 00:00:00 [facility] SARS-COV-2 COVID-19 2020-08-21 Completed [facility] JITENDRA/J&J VACCINE 00:00:00 [facility] SARS-COV-2 COVID-19 2020-08-21 Completed [facility] JITENDRA/J&J VACCINE 00:00:00 [facility] SARS-COV-2 COVID-19 2020-08-21 Completed [facility] JITENDRA/J&J VACCINE 00:00:00 [facility] SARS-COV-2 COVID-19 2020-08-21 Completed [facility] JITENDRA/J&J VACCINE 00:00:00 [facility] SARS-COV-2 COVID-19 2020-08-21 Completed [facility] JITENDRA/J&J VACCINE 00:00:00 [facility] SARS-COV-2 COVID-19 2020-08-21 Completed [facility] JITENDRA/J&J VACCINE 00:00:00 [facility] SARS-COV-2 COVID-19 2020-08-21 Completed [facility] JITENDRA/J&J VACCINE 00:00:00 [facility] Influenza Virus 2018-04-15 Completed [facility] Vaccine Quad .5 mL 00:00:00 [facility] Influenza Virus 2018-04-15 Completed [facility] Vaccine [facility] .5 mL 00:00:00 [facility] Influenza Virus 2018-04-15 Completed [facility] Vaccine [facility] .5 mL 00:00:00 [facility] Influenza Virus 2018-04-15 Completed [facility] Vaccine [facility] .5 mL 00:00:00 [facility] Influenza Virus 2018-04-15 Completed [facility] Vaccine [facility] .5 mL 00:00:00 [facility] Influenza Virus 2018-04-15 Completed [facility] Vaccine [facility] .5 mL 00:00:00 [facility] Influenza Virus 2018-04-15 Completed [facility] Vaccine [facility] .5 mL 00:00:00 [facility] Influenza Virus 2018-04-15 Completed [facility] Vaccine [facility] .5 mL 00:00:00 [facility] Influenza Virus 2018-04-15 Completed [facility] Vaccine [facility] .5 mL 00:00:00 [facility] Influenza Virus 2018-04-15 Completed [facility] Vaccine [facility] .5 mL 00:00:00 [facility] Influenza Virus 2018-04-15 Completed [facility] Vaccine [facility] .5 mL 00:00:00 [facility] Influenza Virus 2018-04-15 Completed [facility] Vaccine [facility] .5 mL 00:00:00 [facility] Influenza Virus 2018-04-15 Completed [facility] Vaccine Quad .5 mL 00:00:00 [facility] Influenza Virus 2018-04-15 Completed [facility] Vaccine [facility] .5 mL 00:00:00 [facility] Influenza Virus 2018-04-15 Completed [facility] Vaccine Quad .5 mL 00:00:00 [facility] Influenza Virus 2018-04-15 Completed [facility] Vaccine [facility] .5 mL 00:00:00 [facility] Influenza Virus 2018-04-15 Completed [facility] Vaccine Quad .5 mL 00:00:00 [facility] Influenza Virus 2018-04-15 Completed [facility] Vaccine [facility] .5 mL 00:00:00 [facility] Influenza Virus 2018-04-15 Completed [facility] Vaccine [facility] .5 mL 00:00:00 [facility] Influenza Virus 2018-04-15 Completed [facility] Vaccine [facility] .5 mL 00:00:00 [facility] Influenza Virus 2018-04-15 Completed [facility] Vaccine [facility] .5 mL 00:00:00 [facility] Influenza Virus 2018-04-15 Completed [facility] Vaccine [facility] .5 mL 00:00:00 [facility] Influenza Virus 2018-04-15 Completed [facility] Vaccine [facility] .5 mL 00:00:00 [facility] Influenza Virus 2018-04-15 Completed [facility] Vaccine [facility] .5 mL 00:00:00 [facility] Influenza Virus 2018-04-15 Completed [facility] Vaccine [facility] .5 mL 00:00:00 [facility] Influenza Virus 2018-04-15 Completed [facility] Vaccine [facility] .5 mL 00:00:00 [facility] Influenza Virus 2018-04-15 Completed [facility] Vaccine [facility] .5 mL 00:00:00 [facility] Influenza Virus 2018-04-15 Completed [facility] Vaccine [facility] .5 mL 00:00:00 [facility] Influenza Virus 2018-04-15 Completed [facility] Vaccine [facility] .5 mL 00:00:00 [facility] 6[facility] Influenza Virus 2018-04-15 Completed [facility] Vaccine [facility] .5 mL 00:00:00 [facility] Influenza Virus 2018-04-15 Completed [facility] Vaccine [facility] .5 mL 00:00:00 [facility] Influenza Virus 2018-04-15 Completed [facility] Vaccine [facility] .5 mL 00:00:00 [facility] Influenza Virus 2018-04-15 Completed [facility] Vaccine [facility] .5 mL 00:00:00 [facility] Influenza Virus 2018-04-15 Completed [facility] Vaccine [facility] .5 mL 00:00:00 [facility] Influenza Virus 2018-04-15 Completed [facility] Vaccine [facility] .5 mL 00:00:00 [facility] Influenza Virus 2018-04-15 Completed [facility] Vaccine [facility] .5 mL 00:00:00 [facility] Influenza Virus 2018-04-15 Completed [facility] Vaccine Quad .5 mL 00:00:00 [facility] Influenza Virus 2018-04-15 Completed [facility] Vaccine [facility] .5 mL 00:00:00 [facility] Influenza Virus 2018-04-15 Completed [facility] Vaccine [facility] .5 mL 00:00:00 [facility] Influenza Virus 2018-04-15 Completed [facility] Vaccine [facility] .5 mL 00:00:00 [facility] Influenza Virus 2018-04-15 Completed [facility] Vaccine [facility] .5 mL 00:00:00 [facility] Influenza Virus 2018-04-15 Completed [facility] Vaccine [facility] .5 mL 00:00:00 [facility] Influenza Virus 2018-04-15 Completed [facility] Vaccine Quad .5 mL 00:00:00 [facility] Influenza Virus 2018-04-15 Completed [facility] Vaccine [facility] .5 mL 00:00:00 [facility] Influenza Virus 2018-04-15 Completed [facility] Vaccine [facility] .5 mL 00:00:00 [facility] Influenza Virus 2018-04-15 Completed [facility] Vaccine Quad .5 mL 00:00:00 [facility] 6+ MO [facility] MMR 2018-03-01 Completed [facility] 00:00:00 [facility] MMR 2018-03-01 Completed [facility] 00:00:00 [facility] [place] MMR 2018-03-01 Completed [facility] 00:00:00 [facility] MMR 2018-03-01 Completed [facility] 00:00:00 [facility] MMR 2018-03-01 Completed [facility] 00:00:00 [facility] MMR 2018-03-01 Completed [facility] 00:00:00 [facility] MMR 2018-03-01 Completed [facility] 00:00:00 [facility] MMR 2018-03-01 Completed [facility] 00:00:00 [facility] MMR 2018-03-01 Completed [facility] 00:00:00 [facility] MMR 2018-03-01 Completed [facility] 00:00:00 [facility] MMR 2018-03-01 Completed [facility] 00:00:00 [facility] MMR 2018-03-01 Completed [facility] 00:00:00 [facility] MMR 2018-03-01 Completed [facility] 00:00:00 [facility] MMR 2018-03-01 Completed [facility] 00:00:00 [facility] MMR 2018-03-01 Completed [facility] 00:00:00 [facility] [place] MMR 2018-03-01 Completed [facility] 00:00:00 [facility] MMR 2018-03-01 Completed [facility] 00:00:00 [facility] MMR 2018-03-01 Completed [facility] 00:00:00 [facility] MMR 2018-03-01 Completed [facility] 00:00:00 [facility] MMR 2018-03-01 Completed [facility] 00:00:00 [facility] MMR 2018-03-01 Completed [facility] 00:00:00 [facility] MMR 2018-03-01 Completed [facility] 00:00:00 [facility] MMR 2018-03-01 Completed [facility] 00:00:00 [facility] MMR 2018-03-01 Completed [facility] 00:00:00 [facility] MMR 2018-03-01 Completed [facility] 00:00:00 [facility] MMR 2018-03-01 Completed [facility] 00:00:00 [facility] MMR 2018-03-01 Completed [facility] 00:00:00 [facility] MMR 2018-03-01 Completed [facility] 00:00:00 [facility] MMR 2018-03-01 Completed [facility] 00:00:00 [facility] MMR 2018-03-01 Completed [facility] 00:00:00 [facility] MMR 2018-03-01 Completed [facility] 00:00:00 [facility] MMR 2018-03-01 Completed [facility] 00:00:00 [facility] MMR 2018-03-01 Completed [facility] 00:00:00 [facility] MMR 2018-03-01 Completed [facility] 00:00:00 [facility] MMR 2018-03-01 Completed [facility] 00:00:00 [facility] MMR 2018-03-01 Completed [facility] 00:00:00 [facility] MMR 2018-03-01 Completed [facility] 00:00:00 [facility] MMR 2018-03-01 Completed [facility] 00:00:00 [facility] MMR 2018-03-01 Completed [facility] 00:00:00 [facility] MMR 2018-03-01 Completed [facility] 00:00:00 [facility] MMR 2018-03-01 Completed [facility] 00:00:00 [facility] MMR 2018-03-01 Completed [facility] 00:00:00 [facility] MMR 2018-03-01 Completed [facility] 00:00:00 [facility] MMR 2018-03-01 Completed [facility] 00:00:00 [facility] MMR 2018-03-01 Completed [facility] 00:00:00 [facility] MMR 2018-03-01 Completed [facility] 00:00:00 [facility] TDAP 2017-12-09 Completed [facility] 00:00:00 [facility] TDAP 2017-12-09 Completed [facility] 00:00:00 [facility] TDAP 2017-12-09 Completed [facility] 00:00:00 [facility] TDAP 2017-12-09 Completed [facility] 00:00:00 [facility] TDAP 2017-12-09 Completed [facility] 00:00:00 [facility] TDAP 2017-12-09 Completed [facility] 00:00:00 [facility] TDAP 2017-12-09 Completed [facility] 00:00:00 [facility] TDAP 2017-12-09 Completed [facility] 00:00:00 [facility] TDAP 2017-12-09 Completed [facility] 00:00:00 [facility] TDAP 2017-12-09 Completed [facility] 00:00:00 [facility] TDAP 2017-12-09 Completed [facility] 00:00:00 [facility] TDAP 2017-12-09 Completed [facility] 00:00:00 [facility] TDAP 2017-12-09 Completed [facility] 00:00:00 [facility] TDAP 2017-12-09 Completed [facility] 00:00:00 [facility] TDAP 2017-12-09 Completed [facility] 00:00:00 [facility] TDAP 2017-12-09 Completed [facility] 00:00:00 [facility] TDAP 2017-12-09 Completed [facility] 00:00:00 [facility] TDAP 2017-12-09 Completed [facility] 00:00:00 [facility] TDAP 2017-12-09 Completed [facility] 00:00:00 [facility] TDAP 2017-12-09 Completed [facility] 00:00:00 [facility] TDAP 2017-12-09 Completed [facility] 00:00:00 [facility] TDAP 2017-12-09 Completed [facility] 00:00:00 [facility] TDAP 2017-12-09 Completed [facility] 00:00:00 [facility] TDAP 2017-12-09 Completed [facility] 00:00:00 [facility] TDAP 2017-12-09 Completed [facility] 00:00:00 [facility] TDAP 2017-12-09 Completed [facility] 00:00:00 [facility] TDAP 2017-12-09 Completed [facility] 00:00:00 [facility] TDAP 2017-12-09 Completed [facility] 00:00:00 [facility] TDAP 2017-12-09 Completed [facility] 00:00:00 [facility] TDAP 2017-12-09 Completed [facility] 00:00:00 [facility] TDAP 2017-12-09 Completed [facility] 00:00:00 [facility] TDAP 2017-12-09 Completed [facility] 00:00:00 [facility] TDAP 2017-12-09 Completed [facility] 00:00:00 [facility] TDAP 2017-12-09 Completed [facility] 00:00:00 [facility] TDAP 2017-12-09 Completed [facility] 00:00:00 [facility] TDAP 2017-12-09 Completed [facility] 00:00:00 [facility] TDAP 2017-12-09 Completed [facility] 00:00:00 [facility] TDAP 2017-12-09 Completed [facility] 00:00:00 [facility] TDAP 2017-12-09 Completed [facility] 00:00:00 [facility] TDAP 2017-12-09 Completed [facility] 00:00:00 [facility] TDAP 2017-12-09 Completed [facility] 00:00:00 [facility] TDAP 2017-12-09 Completed [facility] 00:00:00 [facility] TDAP 2017-12-09 Completed [facility] 00:00:00 [facility] TDAP 2017-12-09 Completed [facility] 00:00:00 [facility] TDAP 2017-12-09 Completed [facility] 00[facility]00:00 [facility] TDAP 2017-12-09 Completed [facility] 00:00:00 [facility] Influenza Virus 2017-03-26 Completed [facility] Vaccine [facility] IM 3+ 00:00:00 [facility] Influenza Virus 2017-03-26 Completed [facility] Vaccine [facility] IM 3+ 00:00:00 [facility] Influenza Virus 2017-03-26 Completed [facility] IM 3+ 00:00:00 [facility] Influenza Virus 2017-03-26 Completed [facility] IM 3+ 00:00:00 [facility] Influenza Virus 2017-03-26 Completed [facility] IM 3+ 00:00:00 [facility] Influenza Virus 2017-03-26 Completed [facility] IM 3+ 00:00:00 [facility] Influenza Virus 2017-03-26 Completed [facility] IM 3+ 00:00:00 [facility] Influenza Virus 2017-03-26 Completed [facility] IM 3+ 00:00:00 [facility] Influenza Virus 2017-03-26 Completed [facility] IM 3+ 00:00:00 [facility] Influenza Virus 2017-03-26 Completed [facility] IM 3+ 00:00:00 [facility] Influenza Virus 2017-03-26 Completed [facility] IM 3+ 00:00:00 [facility] Influenza Virus 2017-03-26 Completed [facility] IM 3+ 00:00:00 [facility] Influenza Virus 2017-03-26 Completed [facility] IM 3+ 00:00:00 [facility] Influenza Virus 2017-03-26 Completed [facility] IM 3+ 00:00:00 [facility] Influenza Virus 2017-03-26 Completed [facility] IM 3+ 00:00:00 [facility] Influenza Virus 2017-03-26 Completed [facility] IM 3+ 00:00:00 [facility] Influenza Virus 2017-03-26 Completed [facility]ine [facility] IM 3+ 00:00:00 [facility] Influenza Virus 2017-03-26 Completed [facility] IM 3+ 00:00:00 [facility] Influenza Virus 2017-03-26 Completed [facility] IM 3+ 00:00:00 [facility] Influenza Virus 2017-03-26 Completed [facility] IM 3+ 00:00:00 [facility] Influenza Virus 2017-03-26 Completed [facility] IM 3+ 00:00:00 [facility] Influenza Virus 2017-03-26 Completed [facility] IM 3+ 00:00:00 [facility] Influenza Virus 2017-03-26 Completed [facility] IM 3+ 00:00:00 [facility] Influenza Virus 2017-03-26 Completed [facility] IM 3+ 00:00:00 [facility] Influenza Virus 2017-03-26 Completed [facility] IM 3+ 00:00:00 [facility] Influenza Virus 2017-03-26 Completed [facility] IM 3+ 00:00:00 [facility] Influenza Virus 2017-03-26 Completed [facility]ine [facility] IM 3+ 00:00:00 [facility] Influenza Virus 2017-03-26 Completed [facility] IM 3+ 00:00:00 [facility] Influenza Virus 2017-03-26 Completed [facility] IM 3+ 00:00:00 [facility] Influenza Virus 2017-03-26 Completed [facility] IM 3+ 00:00:00 [facility] Influenza Virus 2017-03-26 Completed [facility] IM 3+ 00:00:00 [facility] Influenza Virus 2017-03-26 Completed [facility] IM 3+ 00:00:00 [facility] Influenza Virus 2017-03-26 Completed [facility] IM 3+ 00:00:00 [facility] Influenza Virus 2017-03-26 Completed [facility] IM 3+ 00:00:00 [facility] Influenza Virus 2017-03-26 Completed [facility] IM 3+ 00:00:00 [facility] Influenza Virus 2017-03-26 Completed [facility] IM 3+ 00:00:00 [facility] Influenza Virus 2017-03-26 Completed [facility] IM 3+ 00:00:00 [facility] Influenza Virus 2017-03-26 Completed [facility] IM 3+ 00:00:00 [facility] Influenza Virus 2017-03-26 Completed [facility] IM 3+ 00:00:00 [facility] Influenza Virus 2017-03-26 Completed [facility] IM 3+ 00:00:00 [facility] Influenza Virus 2017-03-26 Completed [facility] IM 3+ 00:00:00 [facility] Influenza Virus 2017-03-26 Completed [facility] IM 3+ 00:00:00 [facility] Influenza Virus 2017-03-26 Completed Universit y of Vaccine [facility] IM 3+ 00:00:00 [facility] Influenza Virus 2017-03-26 Completed Universit y of Vaccine [facility] IM 3+ 00:00:00 [facility] Influenza Virus 2017-03-26 Completed Universit y of Vaccine [facility] IM 3+ 00:00:00 [facility] Influenza Virus 2017-03-26 Completed Universit y of Vaccine [facility] IM 3+ 00:00:00 [facility] Td 2005-02-19 Completed University of 00:00:00 [facility] Td 2005-02-19 Completed University of 00:00:00 [facility] TD, NOS 2005-02-19 Completed University of 00:00:00 [facility] TD, NOS 2005-02-19 Completed University of 00:00:00 [facility] TD, NOS 2005-02-19 Completed University of 00:00:00 [facility] TD, NOS 2005-02-19 Completed University of 00:00:00 [facility] TD, NOS 2005-02-19 Completed University of 00:00:00 [facility] TD, NOS 2005-02-19 Completed University of 00:00:00 [facility] TD, NOS 2005-02-19 Completed University of 00:00:00 [facility] TD, NOS 2005-02-19 Completed University of 00:00:00 [facility] TD, NOS 2005-02-19 Completed University of 00:00:00 [facility] TD, NOS 2005-02-19 Completed University of 00:00:00 [facility] TD, NOS 2005-02-19 Completed University of 00:00:00 [facility] TD, NOS 2005-02-19 Completed University of 00:00:00 [facility] TD, NOS 2005-02-19 Completed University of 00:00:00 [facility] TD, NOS 2005-02-19 Completed University of 00:00:00 [facility] TD, NOS 2005-02-19 Completed University of 00:00:00 [facility] TD, NOS 2005-02-19 Completed University of 00:00:00 [facility] TD, NOS 2005-02-19 Completed University of 00:00:00 [facility] Td 2005-02-19 Completed University of 00:00:00 [facility] Td 2005-02-19 Completed University of 00:00:00 [facility] Td 2005-02-19 Completed University of 00:00:00 [facility] Td 2005-02-19 Completed University of 00:00:00 [facility] Td 2005-02-19 Completed University of 00:00:00 [facility] Td 2005-02-19 Completed University of 00:00:00 [facility] Td 2005-02-19 Completed University of 00:00:00 [facility] Td 2005-02-19 Completed University of 00:00:00 [facility] Td 2005-02-19 Completed University of 00:00:00 [facility] Td 2005-02-19 Completed University of 00:00:00 [facility] Td 2005-02-19 Completed University of 00:00:00 [facility] Td 2005-02-19 Completed University of 00:00:00 [facility] Td 2005-02-19 Completed University of 00:00:00 [facility] Td 2005-02-19 Completed University of 00:00:00 [facility] Td 2005-02-19 Completed University of 00:00:00 [facility] Td 2005-02-19 Completed University of 00:00:00 [facility] Td 2005-02-19 Completed University of 00:00:00 [facility] Td 2005-02-19 Completed University of 00:00:00 [facility] Td 2005-02-19 Completed University of 00:00:00 [facility] Td 2005-02-19 Completed University of 00:00:00 [facility] Td 2005-02-19 Completed University of 00:00:00 [facility] Td 2005-02-19 Completed University of 00:00:00 [facility] Td 2005-02-19 Completed University of 00:00:00 [facility] Td 2005-02-19 Completed University of 00:00:00 [facility] Td 2005-02-19 Completed University of 00:00:00 [facility] Td 2005-02-19 Completed University of 00:00:00 [facility] Td 2005-02-19 Completed University of 00:00:00 [facility] Vital Signs Vital Name Observation Time Observation Value Comments Source Systolic blood 2022-09-05 18:18:00 116 mm[Hg] Univer sity of pressure [facility] Diastolic blood 2022-09-05 18:18:00 77 mm[Hg] Unive rsity of [facility] Heart rate 2022-09-05 18:18:00 72 /min [facility] Body temperature 2022-09-05 18:18:00 36.72 Marii [facility] 2022-09-05 18:18:00 18 /min [facility] Body height 2022-09-05 18:18:00 157.5 cm [facility] Body weight 2022-09-05 18:18:00 79.742 kg [facility] BMI 2022-09-05 18:18:00 32.15 kg/m2 [facility] Systolic blood 2022-06-14 21:22:00 121 mm[Hg] Univer sity of pressure [facility] Diastolic blood 2022-06-14 21:22:00 81 mm[Hg] Unive rsity of pressure [facility] Heart rate 2022-06-14 21:22:00 74 /min [facility] Body temperature 2022-06-14 21:22:00 36.78 Marii Univ ersity of [facility] Respiratory rate 2022-06-14 21:22:00 18 /min Univ ersity of [facility] Body height 2022-06-14 21:22:00 157.5 cm [facility]i ty [facility] Body weight 2022-06-14 21:22:00 73.936 kg [facility]i ty [facility] BMI 2022-06-14 21:22:00 29.81 kg/m2 Universi ty of [facility] Systolic blood 2022-04-24 13:05:00 123 mm[Hg] Univer sity of pressure [facility] Diastolic blood 2022-04-24 13:05:00 81 mm[Hg] Unive rsity of pressure [facility] Heart rate 2022-04-24 13:05:00 84 /min Universi ty of [facility] Body temperature 2022-04-24 13:05:00 37 Marii Univ ersity of [facility] Body height 2022-04-24 13:05:00 157.5 cm [facility] Body weight 2022-04-24 13:05:00 76.658 kg [facility] BMI 2022-04-24 13:05:00 30.91 kg/m2 Universi ty of [facility] Oxygen saturation in 2022-04-24 13:05:00 98 /min [facility] Arterial blood by [facility] Pulse oximetry Branch HEIGHT 2021-05-20 06:45:00 5.2 cm WEIGHT 2021-05-20 06:45:00 77.111 kg HEIGHT 2021-05-20 06:45:00 5.2 cm WEIGHT 2021-05-20 06:45:00 77.111 kg HEIGHT 2021-05-15 10:50:00 157.5 cm WEIGHT 2021-05-15 10:50:00 81.3 kg HEIGHT 2021-05-14 08:59:00 157.5 cm WEIGHT 2021-05-14 08:59:00 77.111 kg HEIGHT 2021-05-15 10:50:00 157.5 cm WEIGHT 2021-05-15 10:50:00 81.3 kg HEIGHT 2021-05-14 08:59:00 157.5 cm WEIGHT 2021-05-14 08:59:00 77.111 kg Procedures Procedure Date / Time Performing Clinician Source Performed POCT TEST 2022-09-05 18:34:00 Daniella Fitzgerald [facility] WAMB PATIENT FINANCIAL 2022-09-05 17:50:45 Doctor Unassigned, [facility] POLICY [facility] FLU VACC (), 6 2022-04-24 14:45:42 Angelia Bansal [facility] MO-65 YRS, .5ML, IM, QUAD Medica l Branch (FLUCELVAX) REFERRAL- 2022-02-11 05:01:00 Doctor Unassigned, [facility] REQUEST/RESPONSE [facility] INSURANCE CORRESPONDENCE 2022-01-19 05:01:00 Doctor Unassigned, [facility] REFERRAL- 2022-01-04 05:01:00 Doctor Unassigned, [facility] REQUEST/RESPONSE [facility] Plan of Care Planned Activity Planned Date Details Comments Source Future Scheduled 2027-12-10 DTAP/TDAP/TD VACCINES ([address] [facility] Test 00:00:00 - Td or Tdap) [code = Medica l Center DTAP/TDAP/TD VACCINES (2 - Td or Tdap)] Future Scheduled 2023-02-21 Influenza Vaccine (#1) [facility] 00:00:00 [code = Influenza Vaccine Pa dical Center (#1)] Future Scheduled 2022-06-[address] [facility] Test 00:00:00 (12+) [code = DEPRESSION Med ical Center SCREENING (12+)] Future Scheduled 2022-05-[address] [facility] Test 00:00:00 Counseling and Screening Med ical Center (12+) [code = Tobacco Cessation Counseling and Screening (12+)] Future Scheduled 2021-08-14 COVID-19 VACCINE (3 - [facility] 00:00:00 Booster for Jitendra [facility] Center series) [code = COVID-19 VACCINE (3 - Booster for Jitendra series)] Future Scheduled 2007 Screening for malignant [facility] Test 00:00:00 neoplasm of cervix Medical C enter (procedure) [code = 552989567] Future Scheduled 2006 Lipid panel (procedure) [facility] Test 00:00:00 [code = 84576212] Medical Ce nter Future Scheduled 2004-01-26 HEPATITIS C SCREENING [facility] 00:00:00 [code = HEPATITIS C Medical Center SCREENING] Future Scheduled [address] [facility] Test 00:00:00 virus screening Medical Cent er (procedure) [code = 860980440] Encounters Start End Encounter Admission Attending Care Care Encounter Source Date/Time Date/Time Type Type Clinicians Facility Department ID 2023-01-17 2023-01-17 Refill Leatha [facility] 1.2.840.114 [id number] Univers 00:00:00 00:00:00 Kaleb HEALTH 350.1.13.10 it y of Jose Elias POPJENNIFER 4.2.7.2.686 Rishi as LOPEZ?BLEA [id number] [address] MEDICAL OFFICE [facility] 2023-01-17 2023-01-17 [facility] 1.2.840.114 [id number] Univers 00:00:00 00:00:00 Angelia A HEALTH 350.1.13.10 i ty of [place] 4.2.7.2.686 Rishi as LOPEZ?BLEA [phone] [address] MEDICAL OFFICE [facility] 2022-12-31 2022-12-31 Outpatient R ZOYA [facility] [id number] Univers 08:00:00 08:00:00 CARLOS bowden [facility] 2022-11-23 2022-11-23 Refill Luis [facility] 1.2.840.114 [id number] Univers 00:00:00 00:00:00 Maday HEALTH 350.1.13.10 it y of [place] 4.2.7.2.686 Rishi as LOPEZ?BLEA [id number] [address] MEDICAL OFFICE [facility] 2022-11-11 2022-11-11 Refill Ally [facility] 1.2.840.114 [id number] Univers 00:00:00 00:00:00 Angelia A HEALTH 350.1.13.10 i ty of [place] 4.2.7.2.686 Rishi as LOPEZ?BLEA [phone] [address] OFFICE [facility] 2022-10-22 2022-10-22 Outpatient R ADUM, [facility] [id number] Univers 08:00:00 08:00:00 DANIELLA bowden [facility] 2022-10-05 2022-10-05 [facility] 1.2.840.114 [id number] Univers 00:00:00 00:00:00 Carlos HEALTH 350.1.13.10 it y of [place] 4.2.7.2.686 Rishi as LOPEZ?BLEA [phone] [address] OFFICE [facility] 2022-10-05 2022-10-05 [facility] 1..840.114 [id number] Univers 00:00:00 00:00:00 Angelia A HEALTH 350.1.13.10 i ty of [place] 4.2.7.2.686 Rishi as LOPEZ?BLEA [phone] [address] 2022-09-06 2022-09-06 Telephone [facility] 1..383.290 [id number] Univers 00:00:00 00:00:00 Adin HEALTH 350.1.13.10 it y of [place] 4.2.7.2.686 Rishi as LOPEZ?BLEA [phone] [address] OFFICE [facility] 2022-09-05 2022-09-05 Outpatient R ADUM, [facility] [id number] Univers 13:00:00 13:54:18 DANIELLA bowden [facility] 2022-09-05 2022-09-05 Office Ad, [facility] 1.2.840.114 [id number] Univers 13:00:00 13:54:18 Visit Daniella COFFMAN 350.1.13.10 ity of [place] [phone] [address] 2022-09-05 2022-09-05 Orders Doctor GARO 1.2.840.114 [id number] Univers 00:00:00 00:00:00 Only Unassigned, MARY 350.1.13.10 ity of [place] [facility] 4.2.7.2.686 Rishi as [id number] [address] 2022-08-28 2022-08-[address] [facility] 1.2.840.114 [id number] Univers 00:00:00 00:00:00 Secure Msg Daniella L HEALTH 350.1.13.10 ity [facility] 4.2.7.2.686 Rishi as LOPEZ?BLEA [phone] [address] OFFICE [facility] 2022-07-15 2022-07-15 Patient [facility] 1.2.840.114 [id number] Univers 00:00:00 00:00:00 Secure Msg Carlos HEALTH 350.1.13.10 ity of [facility] 4.2.7.2.686 Rishi as LOPEZ?BLEA [id number] [address] OFFICE [facility] 2022-07-12 2022-07-12 [facility] 1.2.840.114 [id number] Univers 00:00:00 00:00:00 Angelia A HEALTH 350.1.13.10 i ty of [facility] 4.2.7.2.686 Rishi as LOPEZ?BLEA [id number] [address] OFFICE [facility] 2022-06-14 2022-06-14 [facility] [id number] Univers 15:00:00 15:55:59 DANIELLA ity of [facility] 2022-06-14 2022-06-[address] [facility] 1.2.840.114 [id number] Univers 15:00:00 15:55:59 Visit Daniella COFFMAN 350.1.13.10 [facility] 4.2.[place].2.[place] [phone] [address] 2022-06-14 2022-06-14 Patient Ally, [facility] 1.2.840.114 [id number] Univers 00:00:00 00:00:00 Secure Msg Angelia A HEALTH 350.1.13.10 ity of [place] 4.2.7.2.686 Rishi as LOPEZ?BLEA [id number] [address] OFFICE [facility] 2022-05-29 2022-05-29 Patient Ally, [facility] 1.2.840.114 [id number] Univers 00:00:00 00:00:00 Secure Msg Angelia A HEALTH 350.1.13.10 ity of [place] 4.2.7.2.686 Rishi as LOPEZ?BLEA [id number] [address] 2022-05-27 2022-05-27 Telephone Ally, [facility] 1.2.950.626 [id number] Univers 00:00:00 00:00:00 Angelia A HEALTH 350.1.13.10 i ty of [place] 4.2.7.2.686 Rishi as LOPEZ?BLEA [id number] [address] OFFICE [facility] 2022-05-22 2022-05-22 [facility] 1.2.338.020 [id number] Univers 00:00:00 00:00:00 Angelia A HEALTH 350.1.13.10 i ty of [place] 4.2.7.2.686 Rishi as LOPEZ?BLEA [phone] [address] 2022-05-03 2022-05-03 Patient Ally, [facility] 1.2.840.114 [id number] Univers 00:00:00 00:00:00 Secure Msg Angelia A HEALTH 350.1.13.10 ity of [place] 4.2.7.2.686 Rishi as LOPEZ?BLEA [id number] [address] 2022-04-30 2022-04-30 Refill Ally, [facility] 1.2.840.114 [id number] Univers 00:00:00 00:00:00 Angelia A HEALTH 350.1.13.10 i ty of [place] 4.2.7.2.686 Rishi as LOPEZ?BLEA [phone] [facility] THIAGO [address] [facility] OFFICE [facility] 2022-04-29 2022-04-29 Telephone [facility] 1.2.518.765 [id number] Univers 00:00:00 00:00:00 Angelia A HEALTH 350.1.13.10 i ty of [place] 4.2.7.2.686 Rishi as LOPEZ?BLEA [id number] [address] MEDICAL OFFICE [facility] 2022-04-24 2022-04-24 Transportation Solutions Manager Lab, Ang - Db [facility] 1.2.840.1 14 [id number] Univers 09:30:00 09:45:00 Visit AllyAldoAngelia A HEALTH 350.1.13.10 ity of [facility] 4.2.7.2.686 Rishi as LOPEZ?BLEA [phone] [facility] [address] [facility] OFFICE [facility] 2022-04-24 2022-04-24 [facility] [id number] Univers 07:30:00 09:18:10 ANGELIA ity of [facility] 2022-04-24 2022-04-24 Office [facility] 1.2.840.114 [id number] Univers 07:30:00 09:18:10 Visit Angelia Le HEALTH 350.1.13.10 i ty of [place] 4.2.7.2.686 Rishi as LOPEZ?BLEA [id number] [address] OFFICE [facility] 2022-04-24 2022-04-24 [facility] 1.2.840.114 [id number] Univers 00:00:00 00:00:00 Secure Msg Angelia A HEALTH 350.1.13.10 ity of [place] 4.2.7.2.686 Rishi as LOPEZ?BLEA [id number] [address] OFFICE [facility] 2022-04-14 2022-04-14 Chelsea Kenny [facility] 1.2.840.114 [id number] Univers 00:00:00 00:00:00 Carlos HEALTH 350.1.13.10 it y of [place] 4.2.7.2.686 Rishi as LOPEZ?BLEA [id number] [address] MEDICAL OFFICE [facility] 2022-02-11 2022-02-11 Refill Zoya [facility] 1.2.840.114 [id number] Univers 00:00:00 00:00:00 Carlos HEALTH 350.1.13.10 it y of [facility] 4.2.7.2.686 Rishi as LOPEZ?BLEA [id number] [address] OFFICE [facility] 2022-02-11 2022-02-11 Orders Doctor GARO 1.2.840.114 [id number] Univers 00:00:00 00:00:00 Only Unassigned, MARY 350.1.13.10 ity of [place] [facility] 4.2.7.2.686 Rishi as [phone] [address] 2022-01-21 2022-01-21 Outpatient [facility], [facility] SLE [id number] SLE 00:00:00 00:00:00 [facility] 2022-01-19 2022-01-19 Orders Doctor GARO 1.2.840.114 [id number] Univers 00:00:00 00:00:00 Only Unassigned, MARY 350.1.13.10 ity of [place] [facility] 4.2.7.2.686 Rishi as [id number] [address] 2022-01-15 2022-01-15 Patient Ally, [facility] 1.2.840.114 [id number] Univers 00:00:00 00:00:00 Secure Msg Angelia A [place] 350.1.13.10 ity of [place].2.[place] [phone] [address] 2022-01-04 2022-01-04 Orders Doctor GARO 1.2.840.114 [id number] Univers 00:00:00 00:00:00 Only Unassigned, MARY 350.1.13.10 ity of [place] [facility] 4.2.7.2.686 Rishi as [phone] [address] 2021-12-16 2021-12-16 Refill Zoya, [facility] 1.2.840.114 [id number] Univers 00:00:00 00:00:00 Carlos HEALTH 350.1.13.10 it y of [place] 4.2.7.2.686 Rishi as LOPEZ?BLEA [id number] [address] MEDICAL OFFICE [facility] 2021-12-04 2021-12-04 Refill Doctor [facility] 1.2.840.114 [id number] Univers 00:00:00 00:00:00 Unassigned, HEALTH 350.1.13.10 ity of [place] 4.2.7.2.686 Rishi as LOPEZ?BLEA [phone] [address] OFFICE [facility] 2021-11-05 2021-11-05 Refill Doctor [facility] 1.2.840.114 [id number] Univers 00:00:00 00:00:00 Unassigned, HEALTH 350.1.13.10 ity of [place] 4.2.7.2.686 Rishi as LOPEZ?BLEA [id number] [address] MEDICAL OFFICE [facility] 2021-09-26 2021-09-26 Telephone Marama, [facility] 1.2.523.892 [id number] Univers 00:00:00 00:00:00 Carlos HEALTH 350.1.13.10 it y of [place] 4.2.7.2.686 Rishi as LOPEZ?BLEA [id number] [address] OFFICE [facility] 2021-09-21 2021-09-21 Refill Doctor [facility] 1.2.840.114 [id number] Univers 00:00:00 00:00:00 Unassigned, HEALTH 350.1.13.10 ity of [place] 4.2.7.2.686 Rishi as LOPEZ?BLEA [id number] [address] OFFICE [facility] 2021-09-21 2021-09-21 Refill Anene, [facility] 1.2.840.114 [id number] Univers 00:00:00 00:00:00 Carlos HEALTH 350.1.13.10 it y of [place] 4.2.7.2.686 Rishi as LOPEZ?BLEA [phone] Pa che RINALDI [address] [place] [address] MEDICAL OFFICE [facility] 2021-09-07 2021-09-07 Outpatient R ALLY [facility] [id number] Univers 09:00:00 09:07:00 ANGELIA bowden [facility] 2021-09-06 2021-09-06 Outpatient R ALLY, [facility] [id number] Univers 16:15:00 16:15:00 ANGELIA bowden [facility] 2021-09-05 2021-09-05 [facility] [id number] Univers 16:30:00 16:57:53 ANGELIA bowden [facility] 2021-08-14 2021-08-14 Orders Doctor GARO 1.2.840.114 [id number] Univers 00:00:00 00:00:00 Only Unassigned, MARY 350.1.13.10 ity of [place] [facility] 4.2.7.2.686 Rishi as [id number] [address] 2021-08-06 2021-08-06 Office [facility] 1.2.840.114 [id number] Univers 13:30:00 14:26:35 Visit Carlos HEALTH 350.1.13.10 it y of [facility] 4.2.7.2.686 Rishi as LOPEZ?BLEA [phone] Pa che [address] OFFICE [facility] 2021-08-06 2021-08-06 Outpatient R ZOYA [facility] [id number] Univers 13:30:00 14:26:35 CARLOS kal [facility] 2021-08-06 2021-08-06 Outpatient R ZOYA [facility] [id number] Univers 13:30:00 13:30:00 CARLOS bowden [facility] 2021-07-23 2021-07-23 [facility] 1.2.840.114 [id number] Univers 00:00:00 00:00:00 Carlos HEALTH 350.1.13.10 it y of [place] 4.2.7.2.686 Rishi as LOPEZ?BLEA [phone] [place] [address] Branch MEDICAL OFFICE [facility] 2021-06-28 2021-06-28 Telephone Zoya [facility] 1.2.065.677 [id number] Univers 00:00:00 00:00:00 Carlos HEALTH 350.1.13.10 it y of [place] 4.2.7.2.686 Rishi as LOPEZ?BLEA [phone] [address] OFFICE [facility] 2021-06-19 2021-06-19 Transportation Solutions Manager Lab, Ang - Db [facility] 1.2.840.1 14 [id number] Univers 10:30:00 10:45:00 Visit Carlos Kenny 350.1.13.10 ity of [place] 4.2.7.2.686 Rishi as LOPEZ?BLEA [phone] [facility] [address] [facility] OFFICE [facility] 2021-06-19 2021-06-19 [facility] [id number] Univers 09:30:00 10:27:53 CARLOSDAVID bowden [facility] 2021-06-19 2021-06-19 Office Zoya [facility] 1.2.840.114 [id number] Univers 09:30:00 10:27:53 Visit Carlos RAUSCH 350.1.13.10 it y of [facility] 4.2.7.2.686 Rishi as LOPEZ?BLEA [phone] [address] OFFICE [facility] 2021-06-19 2021-06-19 Outpatient R ZOYA [facility] [id number] Univers 09:30:00 10:27:53 CARLOS kal [facility] 2021-06-19 2021-06-19 Outpatient R ZOYA [facility] [id number] Univers 09:30:00 10:27:53 CARLOS maria guadalupejustin [facility] 2021-05-20 2021-05-21 Outpatient ER JAGDEEP CHAKRABORTY Internal [id number] [facility] 06:51:00 14:25:00 HERBERT Med 2021-05-15 2021-05-16 Outpatient LANDON CAPUTO, [facility] Surgery [id number] [facility] 09:33:00 12:21:00 ANTIONETTE 2021-05-14 2021-05-14 Outpatient [facility] [id number] SLE 11:32:39 23:59:00 2021-05-14 2021-05-14 Outpatient [facility] [id number] SLE 09:07:05 11:29:00 2021-05-04 2021-05-04 Outpatient [facility] [id number] SLE 00:00:00 23:59:00 2021-05-03 2021-05-03 Orders Doctor GARO 1.2.840.114 [id number] Univers 00:00:00 00:00:00 Only Unassigned, MARY [id number] ity of [place] [facility] 4.2.7.2.686 Rishi as [phone] [address] 2021-04-10 2021-04-10 Orders Doctor GARO [id number] [facility] 00:00:00 00:00:00 Only Unassigned, MARY [id number] ity of [place] [facility] 4.2.7.2.686 Rishi as [phone] [address] 2021-03-29 2021-03-29 Office Ally [facility] 1.2.840.114 [id number] [facility] 08:13:25 08:43:25 Visit Angelia [facility] [id number] i ty of [place] 4.2.7.2.686 Rishi as Lopez?Blea [phone] [place] [address] Medical Office [facility] 2021-03-29 2021-03-29 Outpatient R [facility] [id number] [address] [place] [address] 08:00:00 08:00:00 ANGELIA bowden [facility] Results Test Description Test Time Test Comments Results Result Comments Source POCT TEST 2022-09-05 18:34:00 Test Item Value Reference Range Interpretation Comme nts POCT PREG (test code = 1605) Negative On board controls acceptable with C Line (test code = 3574) Yes POCT PREG LOT # (test code = 3575) PO[facility]REG [facility] (test code = 3576[facility] [id number] 18:34:00 Test Item Value Reference Range Interpretation Comments POCT PREG (test code = 1605) Negative On board controls acceptable with C Yes Line (test code = 3574) POCT PREG LOT # (test code = 3575) POCT PREG TEST DATE (test code = 3576) [facility]21[facility]-06 12:04:55 Test Item Value Reference Range Interpretation Comments CULTURE (BEAKER) (test No acid-fast bacilli code = 1095) isolated in 42 days AFB SMEAR (BEAKER) No acid fast bacilli (test code = 994) seen FUNGUS CULTURE + [id number] 01:15:32 Test Item Value Reference Range Interpretation Comments CULTURE (BEAKER) (test No fungus isolated in code = 1095) 28 days FUNGUS SMEAR (BEAKER) No fungi seen (test code = 1406) BLOOD [id number] 09:01:20 Test Item Value Reference Range Interpretation Comments CULTURE (BEAKER) (test No growth in 5 days code = 1095) BLOOD [id number] 09:01:20 Test Item Value Reference Range Interpretation Comments CULTURE (BEAKER) (test No growth in 5 days code = 1095) BASIC METABOLIC [id number] 05:31:39 Test Item Value Reference Range Interpretation Comments SODIUM (BEAKER) 142 meq/L 136-145 (test code = 381) POTASSIUM (BEAKER) 4.4 meq/L 3.5-5.1 (test code = 379) CHLORIDE (BEAKER) 108 meq/L 98-107 H (test code = 382) CO2 (BEAKER) (test 26 meq/L 22-29 code = 355) BLOOD UREA NITROGEN 10 mg/dL 7-21 (BEAKER) (test code = 354) CREATININE (BEAKER) 0.73 mg/dL 0.57-1.25 (test code = 358) GLUCOSE RANDOM 123 mg/dL 70-105 H (BEAKER) (test code = 652) CALCIUM (BEAKER) 9.2 mg/dL 8.4-10.2 (test code = 697) EGFR (BEAKER) (test 91 mL/min/1.73 ESTIMA YOON GFR IS code = 1092) sq m NOT ACCURATE CREATININE CLEARANCE IN PREDICTING GLOMERULAR FILTRATION RATE . ESTIMATED GFR I S NOT APPLICABLE FOR DIALYSIS PATIEN TS. Sample Display Preparer ID - RC WCBC W/PLT COUNT & AUTO [id number] 05:11:33 Test Item Value Reference Range Interpretation Comments WHITE BLOOD CELL COUNT (BEAKER) 3.3 K/ L 3.5-10.5 L (test code = 775) RED BLOOD CELL COUNT (BEAKER) 3.79 M/ L 3.93-5.22 L (test code = 761) HEMOGLOBIN (BEAKER) (test code = 10.8 GM/DL 11.2-15.7 L 410) HEMATOCRIT (BEAKER) (test code = 33.5 % 34.1-44.9 L 411) MEAN CORPUSCULAR VOLUME (BEAKER) 88.4 fL 79.4-94.8 (test code = 753) MEAN CORPUSCULAR HEMOGLOBIN 28.5 pg 25.6-32.2 (BEAKER) (test code = 751) MEAN CORPUSCULAR HEMOGLOBIN CONC 32.2 GM/DL 32.2-35.5 (BEAKER) (test code = 752) RED CELL DISTRIBUTION WIDTH 11.2 % 11.7-14.4 L (BEAKER) (test code = 412) PLATELET COUNT (BEAKER) (test 233 K/CU MM 150-450 code = 756) MEAN PLATELET VOLUME (BEAKER) 10.6 fL 9.4-12.3 (test code = 754) NUCLEATED RED BLOOD CELLS 0 /100 WBC 0-0 (BEAKER) (test code = 413) NEUTROPHILS RELATIVE PERCENT 46 % (BEAKER) (test code = 429) LYMPHOCYTES RELATIVE PERCENT 38 % (BEAKER) (test code = 430) MONOCYTES RELATIVE PERCENT 13 % (BEAKER) (test code = 431) EOSINOPHILS RELATIVE PERCENT 2 % (BEAKER) (test code = 432) BASOPHILS RELATIVE PERCENT 1 % (BEAKER) (test code = 437) NEUTROPHILS ABSOLUTE COUNT 1.52 K/ L 1.56-6.13 L (BEAKER) (test code = 670) LYMPHOCYTES ABSOLUTE COUNT 1.26 K/ L 1.18-3.74 (BEAKER) (test code = 414) MONOCYTES ABSOLUTE COUNT (BEAKER) 0.44 K/ L 0.24-0.36 H (test code = 415) EOSINOPHILS ABSOLUTE COUNT 0.08 K/ L 0.04-0.36 (BEAKER) (test code = 416) BASOPHILS ABSOLUTE COUNT (BEAKER) 0.02 K/ L 0.01-0.08 (test code = 417) IMMATURE GRANULOCYTES-RELATIVE 0 % 0-1 PERCENT (BEAKER) (test code = 2801) RAD, ABDOMEN/KUB, 1 VIEW [id number] 18:38:00Reason for exam:->st[facility] : 1985 Sex: FFINAL REPORT Exam: RAD, ABDOMEN/KUB, 1 VIEW AP Indication: Stent placement Comparison: CT abdomen and pelvis of 05/16/2021 Findings: Right double-J ureteral stent with proximal loop partially formed, likely in a lower pole calyx and distal loop was formed in the bladder. No radiographically apparent urinary calculi. Nonobstructive bowel gas pattern. No free air. Intrauterine devicein the pelvis. No acute osseous injury. Impression:Unchanged configuration of right double-J ureteral stent. No radiographically apparent urinary calculi. Signed: Jake Benavides MDReport Verified Date/Time: 05/20/2021 18:38:15 Reading Location: [facility] B1 C013Y CT Body Reading Room U/S, RENAL, [id number] 14:59:00Reason for exam:->Postop fevers [facility] 1985 Sex: FFINAL REPORT U/S, RENAL, COMPLETE CLINICAL HISTORY: Postop fevers COMPARISON: CT abdomen pelvis 05/16/2021. TECHNIQUE: Real time grayscale and color Doppler imaging of the kidneys andurinary bladder was performed. FINDINGS: Right kidney:Length = 12 cmCortical thickness: NormalEchogenicity: NormalCollecting system: Mild pelviectasis without hydronephrosisOther findings: None Left kidney:Length = 10.8 cmCortical thickness: NormalEchogenicity: NormalCollecting system: No hydronephrosisOther findings: None Urinary bladder: Normally distended Main renal artery and main renal vein: Grossly patent bilaterally IMPRESSION: Mild right pelviectasis without hydronephrosis. Signed: Jo Pompa Verified Date/Time: 05/20/2021 14:59:12 Reading Location: [address] Consult Reading Room SURGICALLY OBTAINED CULTURE + GRAM STAIN 2021-05-20 10:42:52 Test Item Value Reference Range Interpretation Comments CULTURE (BEAKER) ENTEROCOCCUS A 4+ Enteroco ccus (test code = 1095) FAECALIS faecalis Ampicillin (test S code = 26) Levofloxacin (test S code = 22) Linezolid (test S code = 40) Vancomycin (test S code = 13) GRAM STAIN RESULT <1+ WBCs (BEAKER) (test code = 1123) GRAM STAIN RESULT No organisms seen (BEAKER) (test code = 901154) GRAM STAIN RESULT No organisms seen (BEAKER) (test code = 574394) HCG, QUANTITATIVE, [id number] 10:34:36 Test Item Value Reference Range Interpretation Comments GONADOTROPIN, CHORIONIC (HCG) QUANT < mIU/mL 0-10 (BEAKER) (test code = 649) Non- Females: <10 mIU/mL Females: Gestation Age Reference Range(mIU/mL) 0.2-1 Week 5-50 1-2 Weeks 50-500 2-3 Weeks 100-5,000 3-4 Weeks 500-10,000 4-5 Weeks 1,000-50,000 5-6 Weeks 10,000-100,000 6-8 Weeks 15,000- 200,000 2-3 Months 10,000-100,000 Sample Display Preparer ID - SHAYLEE WSARS-COV2/RT-PCR ([facility])2021-05-20 09:43:27 Test Item Value Reference Range Interpretation Comments SARS-COV2/RT-PCR Negative Negative The SARS-Co V-2 target (test code = nucleic acids a re not [id number]) detected in thi s specimen. Negative result s do not preclude SARS-C oV-2 infection and s hould not be used as the jaziel e basis for patient managem ent decisions. Nega tive results must be combine d with clinical observ ations, patient history , and epidemiological information. A false negativ e result may occur if a spec imen is improperly chris ected, transported or handled. This SARS CoV-2 test is a rapid, real-time RT-PC R test intended for th e qualitative detection of nu cleic acid from SARS-CoV-2 in a nasopharyngeal swab specimen collected from individuals suspected of CO VID-19 by their healthcar e provider. This test has been authorized by FDA under an EUA for use by authorized laboratories. This test is only authorized for the duration of the declaration that circumstances exist justifying the authorization of emergency use of in vitro diagnostic tests for detection and/or diagnosis of COVID-19 under Section 564(b)(1) of the Federal Food, Drug and Cosmetic Act, 21 U.S.C. 360bbb-3(b)(1), unless the authorization is terminated or revoked sooner. Fact Sheet for Healthcare Providers: https://www.cepTheJobPostid.co m/Documents/Xpert%20Xpress%20SARS%20CoV-2/Fact%20Sheets/302-4338%45UBWP-XPG-4%20 HEALTHCARE%20PROVIDERS%20FACT%20SHEET.pdf Fact Sheet for Healthcare Patients: https://www.cepTheJobPostid.PathSource/Documents/Xpert%20Xp ress%20SARS%20CoV-2/Fact%20Sheets/302-3801%34IZXF-ZNQ-2%20PATIENT%20FACT%20SHEET .pdfRAD, CHEST, 1 VIEW, NON [id number] 08:27:00Reason for exam:- >FEVERShould this be performed at the bedside?->Yes [facility] 1985 Sex: FFINAL REPORT INDICATION: FEVER COMPARISON: 05/15/2020 TECHNIQUE: Single frontal view of the chest. FINDINGS: Lungs and pleura: Clear lungs. No effusion.Heart and mediastinum: Normal heart size. Unremarkable mediastinal contours.Osseous structures: No acute abnormality.Other: None. IMPRESSION: No acute intrathoracic abnormality. Signed: Rufina Springer MDReport Verified Date/Time: 05/20/2021 08:27:49 PREGNANCY SCREEN, [id number] 08:22:55 Test Item Value Reference Range Interpretation Comments TEST URINE (BEAKER) (test Positive code = 583) CBC W/PLT COUNT & AUTO [id number] 08:05:52 Test Item Value Reference Range Interpretation Comments WHITE BLOOD CELL COUNT (BEAKER) 5.3 K/ L 3.5-10.5 (test code = 775) RED BLOOD CELL COUNT (BEAKER) 4.21 M/ L 3.93-5.22 (test code = 761) HEMOGLOBIN (BEAKER) (test code = 12.1 GM/DL 11.2-15.7 410) HEMATOCRIT (BEAKER) (test code = 37.1 % 34.1-44.9 411) MEAN CORPUSCULAR VOLUME (BEAKER) 88.1 fL 79.4-94.8 (test code = 753) MEAN CORPUSCULAR HEMOGLOBIN 28.7 pg 25.6-32.2 (BEAKER) (test code = 751) MEAN CORPUSCULAR HEMOGLOBIN CONC 32.6 GM/DL 32.2-35.5 (BEAKER) (test code = 752) RED CELL DISTRIBUTION WIDTH 11.2 % 11.7-14.4 L (BEAKER) (test code = 412) PLATELET COUNT (BEAKER) (test 260 K/CU MM 150-450 code = 756) MEAN PLATELET VOLUME (BEAKER) 9.9 fL 9.4-12.3 (test code = 754) NUCLEATED RED BLOOD CELLS 0 /100 WBC 0-0 (BEAKER) (test code = 413) NEUTROPHILS RELATIVE PERCENT 85 % (BEAKER) (test code = 429) LYMPHOCYTES RELATIVE PERCENT 8 % (BEAKER) (test code = 430) MONOCYTES RELATIVE PERCENT 6 % (BEAKER) (test code = 431) EOSINOPHILS RELATIVE PERCENT 0 % (BEAKER) (test code = 432) BASOPHILS RELATIVE PERCENT 0 % (BEAKER) (test code = 437) NEUTROPHILS ABSOLUTE COUNT 4.48 K/ L 1.56-6.13 (BEAKER) (test code = 670) LYMPHOCYTES ABSOLUTE COUNT 0.43 K/ L 1.18-3.74 L (BEAKER) (test code = 414) MONOCYTES ABSOLUTE COUNT (BEAKER) 0.31 K/ L 0.24-0.36 (test code = 415) EOSINOPHILS ABSOLUTE COUNT 0.01 K/ L 0.04-0.36 L (BEAKER) (test code = 416) BASOPHILS ABSOLUTE COUNT (BEAKER) 0.02 K/ L 0.01-0.08 (test code = 417) IMMATURE GRANULOCYTES-RELATIVE 0 % 0-1 PERCENT (BEAKER) (test code = 2801) COMPREHENSIVE METABOLIC [id number] 07:59:09 Test Item Value Reference Range Interpretation Comments TOTAL PROTEIN 7.7 gm/dL 6.0-8.3 (BEAKER) (test code = 770) ALBUMIN (BEAKER) 4.4 g/dL 3.5-5.0 (test code = 1145) ALKALINE PHOSPHATASE 89 U/L 40-150 (BEAKER) (test code = 346) BILIRUBIN TOTAL 0.4 mg/dL 0.2-1.2 (BEAKER) (test code = 377) SODIUM (BEAKER) (test 136 meq/L 136-145 code = 381) POTASSIUM (BEAKER) 4.2 meq/L 3.5-5.1 (test code = 379) CHLORIDE (BEAKER) 101 meq/L 98-107 (test code = 382) CO2 (BEAKER) (test 24 meq/L 22-29 code = 355) BLOOD UREA NITROGEN 9 mg/dL 7-21 (BEAKER) (test code = 354) CREATININE (BEAKER) 0.84 mg/dL 0.57-1.25 (test code = 358) GLUCOSE RANDOM 153 mg/dL 70-105 H (BEAKER) (test code = 652) CALCIUM (BEAKER) 10.0 mg/dL 8.4-10.2 (test code = 697) AST (SGOT) (BEAKER) 26 U/L 5-34 (test code = 353) ALT (SGPT) (BEAKER) 29 U/L 6-55 (test code = 347) EGFR (BEAKER) (test 77 mL/min/1.73 ESTIMA YOON GFR IS code = 1092) sq m NOT ACCURATE CREATININE CLEARANCE IN PREDICTING GLOMERULAR FILTRATION RATE . ESTIMATED GFR I S NOT APPLICABLE FOR DIALYSIS PATIEN TS. Sample Display Preparer ID - DBLACTIC ACID, [id number] 07:54:46 Test Item Value Reference Range Interpretation Comments LACTATE BLOOD VENOUS (2) (BEAKER) 0.79 mmol/L 0.50-2.20 (test code = 2872) Sample Display Preparer ID - [id number] 07:50:05 Test Item Value Reference Range Interpretation Comments PARTIAL THROMBOPLASTIN TIME 42.2 seconds 22.5-36.0 H (BEAKER) (test code = 760) PROTHROMBIN TIME/[id number] 07:49:07 Test Item Value Reference Range Interpretation Comments PROTIME (BEAKER) 14.2 seconds 11.9-14.2 (test code = 759) INR (BEAKER) (test 1.12 See_Comment [Automat ed message] code = 370) The system [email or web address] generated this result transmitted ref erence range: <=5.90. The reference range was not used to int erpret this result as normal/abnormal . RECOMMENDED COUMADIN/WARFARIN INR THERAPY RANGESSTANDARD DOSE: 2.0 - 3.0 Includes: PROPHYLAXIS for venous thrombosis, systemic embolization; TREATMENT for venous thrombosis and/or pulmonary embolus.HIGH RISK: Target INR is 2.5-3.5 for patients with mechanical heart valves.URINALYSIS W/ REFLEX URINE CULTURE 2021-05-20 07:44:01 Test Item Value Reference Range Interpretation Comments COLOR (BEAKER) (test code = 470) Dark Yellow CLARITY (BEAKER) (test code = Clear 469) SPECIFIC GRAVITY UA (BEAKER) 1.005 1.001-1.035 (test code = 468) PH UA (BEAKER) (test code = 467) 7.5 5.0-8.0 PROTEIN UA (BEAKER) (test code = Negative Negative 464) GLUCOSE UA (BEAKER) (test code = Negative Negative 365) KETONES UA (BEAKER) (test code = Negative Negative 371) BILIRUBIN UA (BEAKER) (test code Negative Negative = 462) BLOOD UA (BEAKER) (test code = Moderate Negative A 461) NITRITE UA (BEAKER) (test code = Negative Negative 465) LEUKOCYTE ESTERASE UA (BEAKER) Moderate Negative A (test code = 466) UROBILINOGEN UA (BEAKER) (test 0.2 mg/dL 0.2-1.0 code = 463) RBC UA (BEAKER) (test code = 519) 8 /HPF WBC UA (BEAKER) (test code = 520) 19 /HPF BACTERIA (BEAKER) (test code = None Seen 517) SQUAMOUS EPITHELIAL (BEAKER) 7 /HPF (test code = 516) CRYSTALS, URINE (BEAKER) (test None Seen code = 1521) SOURCE(BEAKER) (test code = 2795) Sample Display Preparer ID - [auto]Sample Display Preparer ID - techANAEROBIC [id number] 09:45:17 Test Item Value Reference Range Interpretation Comments CULTURE (BEAKER) (test No anaerobes isolated code = 1095) SPIN/CONCENTRATION [id number] 08:21:47 Test Item Value Reference Range Interpretation Comments CONCENTRATION CHARGED (BEAKER) (test Done code = 7547) BASIC METABOLIC [id number] 04:15:14 Test Item Value Reference Range Interpretation Comments SODIUM (BEAKER) 139 meq/L 136-145 (test code = 381) POTASSIUM (BEAKER) 4.7 meq/L 3.5-5.1 (test code = 379) CHLORIDE (BEAKER) 106 meq/L 98-107 (test code = 382) CO2 (BEAKER) (test 23 meq/L 22-29 code = 355) BLOOD UREA NITROGEN 13 mg/dL 7-21 (BEAKER) (test code = 354) CREATININE (BEAKER) 0.76 mg/dL 0.57-1.25 (test code = 358) GLUCOSE RANDOM 152 mg/dL 70-105 H (BEAKER) (test code = 652) CALCIUM (BEAKER) 9.5 mg/dL 8.4-10.2 (test code = 697) EGFR (BEAKER) (test 87 mL/min/1.73 ESTIMA YOON GFR IS code = 1092) sq m NOT ACCURATE CREATININE CLEARANCE IN PREDICTING GLOMERULAR FILTRATION RATE . ESTIMATED GFR I S NOT APPLICABLE FOR DIALYSIS PATIEN TS. Sample Display Preparer ID - GONZALO MHEMOGLOBIN AND [id number] 03:55:49 Test Item Value Reference Range Interpretation Comments HEMOGLOBIN (BEAKER) (test code = 11.9 GM/DL 11.2-15.7 410) HEMATOCRIT (BEAKER) (test code = 36.6 % 34.1-44.9 411) Sample Display Preparer ID - [id number], [id number] 03:33:00Unlisted Reason for Exam - Click Yes and Enter Reason Below->YesUnlisted Reason for Exam->post-R PCNL, evaluate for residual stonesPlease specify:->Renal Stone ProtocolPlease specify:->Renal Stone SearchWill this procedure require oral contrast?->No [facility] : 1985 Sex: FFINAL REPORT CT, ABDOMEN \T\ PELVIS, WITHOUT IV CONTRAST CLINICAL HISTORY: Urinarytract stone, symptomatic/complicatedpost-R PCNL, evaluate for residual stones Technique: Multiple axial images of the abdomen and pelvis were performed without contrast. Coronal and sagittal reformats obtained. Oral contrast was not administered. This exam was performed according to our departmental dose-optimization program, which includes automated exposure control, adjustment of the mA and/or kV according to patient size and/or use of the iterative reconstruction technique. COMPARISON: None. FINDINGS:ABSENCE OF INTRAVENOUS CONTRAST DECREASES SENSITIVITY FOR DETECTION OF FOCAL LESIONS AND VASCULAR PATHOLOGY. LOWER CHEST:Basilar atelectasis. HEPATOBILIARY: No acute findings.PANCREAS: No acute findings. SPLEEN: No acute findings.ADRENAL GLANDS: Unremarkable.KIDNEYS URETERS: Right double-J ureteral stent coils within the right kidney lower pole and the urinary bladder. Moderate right perinephric s tranding with slightly hyperdense material within the right renal collecting system and lower pole parenchymal. Mild right hydronephrosis without residual stone. Left kidney without hydronephrosis. Nonobstructing left kidney 1 mm calculus.URINARY BLADDER: Contains a Hu catheter and ureteral stent.RE PRODUCTIVE ORGANS: Uterus IUD in place. GASTROINTESTINAL/MESENTERY: No bowel obstruction or abnormalwall thickening. No evidence of acute appendicitis. Moderate fecal burden. PERITONEUM/RETROPERITONEUM: Trace perinephric abscess. Mild periaortic stranding with reactive lymph nodes.VESSELS: No acute fi ndings.SOFT TISSUES: Right flank subcutaneous gas, likely sequela of prior procedure.BONES: No suspicious osseous lesion. L5 limbus vertebra. IMPRESSION:Right ureteral stent with mild right hydronephrosis containing hyperdense material suggestive of hemorrhage/blood clot, possibly from prior percutaneous instrumentation. Right perinephric stranding may be sequela of obstruction or infection. No rightstone. Nonobstructing 1 mm left renal calculus. Pulmonary atelectasis. Signed: Homer Babb [facility] Verified Date/Time: 05/16/2021 03:33:19 BASIC METABOLIC [id number] 15:55:19 Test Item Value Reference Range Interpretation Comments SODIUM (BEAKER) 139 meq/L 136-145 (test code = 381) POTASSIUM (BEAKER) 4.8 meq/L 3.5-5.1 Specimen moderately (test code = 379) hemolyzed CHLORIDE (BEAKER) 107 meq/L 98-107 (test code = 382) CO2 (BEAKER) (test 20 meq/L 22-29 L code = 355) BLOOD UREA NITROGEN 17 mg/dL 7-21 (BEAKER) (test code = 354) CREATININE (BEAKER) 0.84 mg/dL 0.57-1.25 Specimen moderately (test code = 358) hemolyzed GLUCOSE RANDOM 118 mg/dL 70-105 H (BEAKER) (test code = 652) CALCIUM (BEAKER) 9.2 mg/dL 8.4-10.2 (test code = 697) EGFR (BEAKER) (test 77 mL/min/1.73 ESTIMA YOON GFR IS code = 1092) sq m NOT ACCURATE CREATININE CLEARANCE IN PREDICTING GLOMERULAR FILTRATION RATE . ESTIMATED GFR I S NOT APPLICABLE FOR DIALYSIS PATIEN TS. Sample Display Preparer ID - BSHEMOGLOBIN AND [id number] 15:41:37 Test Item Value Reference Range Interpretation Comments HEMOGLOBIN (BEAKER) (test code = 13.0 GM/DL 11.2-15.7 410) HEMATOCRIT (BEAKER) (test code = 40.2 % 34.1-44.9 411) Sample Display Preparer ID - [id number], CHEST, 1 VIEW, NON [id number] 15:04:00Reason for exam:->Post Procedure - Cysto Right Ureteral Stent PlacementShould this be performed at the bedside?->Yes [facility] : 1985 Sex: FFINAL REPORT RAD, CHEST, 1 VIEW, NON DEPT INDICATION: Post Procedure - Cysto RightUreteral Stent Placement COMPARISON: None FINDINGS: Portable frontal view of the chest. IMPRESSION: Support Lines: Endotracheal tube terminates 3 cm above the nelly. Lungs and pleura: Lungs are clear.No pneumothorax.Heart and mediastinum: Unremarkable contours.Additional findings: None. Signed: Roman spence JR, Robert MDReport Verified Date/Time: 05/15/2021 15:04:08 Reading Location: [facility] Reading Room FL, FLUORO, NON-SPECIFIC, UP TO 1 HOUR 2021-05-15 14:22:00Reason for exam:->Retrogrades [facility] : 1985 Sex: FFluoroscopic unit utilized for a procedure performed in the OR. No interpretation was requested. Refer to the operative report for findings. Refer to PACS for patient radiation dose information.SARS-COV2/RT-PCR ([facility])2021-05-14 19:35:48 Test Item Value Reference Range Interpretation Comments SARS-COV2/RT-PCR (test code = Negative Negative [id number]) Negative result for this test determines that SARS-CoV-2 RNA was not present in the specimen above the Limit of Detection (LOD). However, Negative results do not preclude SARS-CoV-2 infection and should not be used as the sole basis for treatment or patient management decisions. Negative results must be combined with clinical observations, patient history, and epidemiological information. A false negative result may occur if a specimen is improperly collected, transported, or handled. A false negative result should be considered if patient's recent exposures or clinical presentation indicate that COVID-19 (SARS-CoV-2) is likely and diagnostic tests for other causes of illness are negative. Re-testing should be considered in cases of suspected false negatives.The limit of detection for this assay is 100 copies/mL.This SARS-CoV-2 test is a real-time RT_PCR test intended for the qualitative detection of nucleic acid from SARS-CoV-2 in a nasopharyngeal swab specimen collected from individuals suspected of COVID-19 by their healthcare provider.This test has not been Food and Drug Administration (FDA) cleared or approved. This is a modified version of an approved Emergency Use Authorization (EUA) and is in the process of review by the FDA. Once authorized by the FDA, the issued EUA will be effective until the declaration that circumstances exist justifying the authorization of the emergency use of in vitro diagnostic tests for detection and/or diagnosis of COVID-19 is terminated under Section 564(b)(2) of the Act or the EUA is revoked under Section 564(g) of the Act.Testing was performed using the Asher SARS-CoV-2 assay.Fact Sheet for Healthcare Providers:https://www.SWYF.asher/kasie/RT SARS-CoV-2 HCP Fact Sheet 51- 077794.pdfFact Sheet for Healthcare Patients:https://www.molecular.asher/kasie/RT SARS-CoV-2 Patient Fact Sheet EN 51-979715O3.pdf Notes Date/Time Note Provider Source 2023-01-20 13:00:47-00:00 Formatting of this note is d ifferent from the original. [facility] Images from the original note were not included. Requested Renewals escitalopram oxalate 20 mg tablet Sig: N/A Disp: 30 tablet Refills: 0 Start: 01/17/2023 Class: eRX For: Anxiety and depression Last ordered: 2 months ago (11/21/2022) by JEANNE Moses Psychiatry: Antidepressants Failed 01/17/2023 0 5:25 PM Protocol Details Manual Review: Verify n o changes in dose in the last 3 months Valid encounter within last 12 months To be filled at: [address] AT [place] & [address]rosio Recent Visits Date Type Provider Dept 09/05/22 Office Visit Daniella Fitzgerald MD [facility] 04/24/22 Office Visit Angelia Bansal PA [facility] 09/05/21 Office Visit Angelia aBnsal PA [facility] 08/06/21 Office Visit Carlos Kenny FNP [facility] Showing recent visits within past 540 days with a meds authorizing provider and meeting all other requirements Future Appointments No visits were found meeting these conditions. Showing future appointments within next 150 days with a meds authorizing provider and meeting all other requirements YT
--- NOTE | 2023-02-09 21:23 | RAD REPORT ---
EXAM DESCRIPTION: RAD - Ankle Left 3 View - 02/09/2023 9:16 pm CLINICAL HISTORY: PAIN COMPARISON: No comparisons FINDINGS/IMPRESSION: No acute fracture. No malalignment. No significant focal degenerative changes. Soft tissue swelling laterally.
--- NOTE | 2023-02-09 21:41 | ER ---
Nurse's Notes [facility] Name: Alem Conte Age: 38 yrs Sex: Female : 1985 Arrival Date: 02/09/2023 Time: 19:52 Bed 11 Private MD: Diagnosis: Sprain of unspecified ligament of left ankle Presentation: 02/09 20:38 Chief complaint: Patient states: Left ankle pain, [place]pped over. Coronavirus screen: Vaccine status: Patient reports receiving the 2nd dose of the covid vaccine. Ebola Screen: Patient denies travel to an Ebola-affected area in the 21 days before illness onset. Initial Sepsis Screen: Does the patient meet any 2 criteria? No. Patient's initial sepsis screen is negative. Does the patient have a suspected source of infection? No. Patient's initial sepsis screen is negative. Risk Assessment: Do you want to hurt yourself or someone else? Patient reports no desire to harm self or others. Onset of symptoms was February 09, 2023 at 19:15. 20:38 Method Of Arrival: Wheelchair nj1 20:38 Acuity: EVELIO 3 nj1 Historical: - Allergies: 20:41 Amoxicillin; nj1 20:41 PENICILLINS; nj1 20:41 Sulfa (Sulfonamide Antibiotics); nj1 - PMHx: 20:41 Anxiety; nj1 20:42 Kidney stones; nj1 - PSHx: 20:41 section; nj1 20:42 Kidney surgery; nj1 - Immunization history:: Client reports receiving the 2nd dose of the Covid vaccine. - Social history:: Smoking status: Patient denies any tobacco usage or history of. - Family history:: not pertinent. Screenin:00 [facility] ED Fall Risk Assessment (Adult) History of falling in the last 3 months, kl including since admission Yes- physiologic fall (2 pts) Confusion or Disorientation No (0 pts) Intoxicated or Sedated No (0 pts) Impaired Gait Yes (1 pt) Mobility Assist Device Used No (0 pt) Altered Elimination No (0 pt) Score/Fall Risk Level 0 - 2 = Low Risk Oriented to surroundings, Maintained a safe environment. Abuse screen: Denies threats or abuse. Nutritional screening: No deficits noted. Tuberculosis screening: No symptoms or risk factors identified. Assessment: 21:25 General: Appears uncomfortable, Behavior is cooperative. Pain: Complains of pain in kl left ankle Pain currently is 7 out of 10 on a pain scale. Quality of pain is described as aching. Musculoskeletal: Circulation, motion, and sensation intact. Capillary refill < 3 seconds, Swelling present in left ankle. Vital Signs: 20:38 BP 125 / 92; Pulse 75; Resp 18; Temp 99.6(O); Pulse Ox 100% ; Weight 79.38 kg; Height 5 nj1 ft. 2 in. ; Pain 4/10; 22:00 Pulse 84; Resp 18; Pulse Ox 96% on R/A; kl 20:38 Body Mass Index 32.01 (79.38 kg, 157.48 cm) nj1 20:38 Pain Scale: Adult nj1 ED Course: 20:36 Patient arrived in ED. es 20:37 Jeffery Patel MD is Attending Physician. rt 20:41 Triage completed. nj1 20:42 Arm band placed on right wrist. nj1 20:51 Affected limb iced. nj1 21:18 Ankle Left 3 View XRAY In Process Unspecified. EDMS 21:40 Davide Rome MD is Referral Physician. rt 21:59 Jorge wrap to left ankle 3D boot applied to left foot. kl Administered Medications: 21:41 Drug: Ketorolac IM 15 mg Route: IM; Site: left deltoid; Medication: 22:00 VIS not applicable for this client. Outcome: 21:41 Discharge ordered by . rt 22:01 Discharged to home with crutches, with family. 22:01 Condition: stable 22:01 Discharge instructions given to patient, Instructed on discharge instructions, follow up and referral plans. Demonstrated understanding of instructions, follow-up care, crutch walking. 22:01 Patient left the ED. Signatures: Dispatcher [employer] EDMS Violet Awad RN RN kl Salyer, Edna es [place], Ryan, MD MD rt Francisca Ramirez RN RN nj1 Corrections: (The following items were deleted from the chart) 20:43 20:38 Pulse 75bpm; Resp 18bpm; Pulse Ox 100%; Temp 99.6F Oral; 79.38 kg; Height 5 ft. 2 nj1 in.; BMI: 32.0; Pain 4/10, Adult; nj1
--- NOTE | 2023-02-09 21:41 | EDPHYS ---
Physician Documentation [facility] Name: Alem Conte Age: 38 yrs Sex: Female : 1985 Arrival Date: 02/09/2023 Time: 19:52 Bed 11 Private MD: ED Physician Jeffery Patel HPI: 02/09 23:56 This 38 yrs old Female presents to ER via Wheelchair with complaints of Ankle Injury. rt 23:56 Patient presents to the ED with an injury to the left ankle. Patient [place] running [place] trail when she twisted her ankle inwards when she tripped over a root. She denies hitting her head, having other injury. She reports swelling laterally. Pain is aching nature, nonradiating, no other aggravating alleviating factors.. Historical: - Allergies: 20:41 Amoxicillin; nj1 20:41 PENICILLINS; nj1 20:41 Sulfa (Sulfonamide Antibiotics); nj1 - PMHx: 20:41 Anxiety; nj1 20:42 Kidney stones; nj1 - PSHx: 20:41 section; nj1 20:42 Kidney surgery; nj1 - Immunization history:: Client reports receiving the 2nd dose of the Covid vaccine. - Social history:: Smoking status: Patient denies any tobacco usage or history of. - Family history:: not pertinent. ROS: 23:56 Constitutional: Negative for fever, chills, and weight loss, Cardiovascular: Negative rt for chest pain, palpitations, and edema, Respiratory: Negative for shortness of breath, cough, wheezing, and pleuritic chest pain, Abdomen/GI: Negative for abdominal pain, nausea, vomiting, diarrhea, and constipation, Skin: Negative for injury, rash, and discoloration, Neuro: Negative for headache, weakness, numbness, tingling, and seizure, Psych: Negative for depression, anxiety, suicide ideation, homicidal ideation, and hallucinations. 23:56 MS/extremity: Positive for pain, swelling, Negative for Exam: 23:56 Constitutional: This is a well developed, well nourished patient who is awake, alert, rt and in no acute distress. Head/Face: Normocephalic, atraumatic. Chest/axilla: Normal chest wall appearance and motion. Nontender with no deformity. No lesions are appreciated. Cardiovascular: Regular rate and rhythm with a normal S1 and S2. No gallops, murmurs, or rubs. Normal PMI, no JVD. No pulse deficits. Respiratory: Lungs have equal breath sounds bilaterally, clear to auscultation and percussion. No rales, rhonchi or wheezes noted. No increased work of breathing, no retractions or nasal flaring. Abdomen/GI: Soft, non-tender, with normal bowel sounds. No distension or tympany. No guarding or rebound. No evidence of tenderness throughout. Skin: Warm, dry with normal turgor. Normal color with no rashes, no lesions, and no evidence of cellulitis. Neuro: Awake and alert, GCS 15, oriented to person, place, time, and situation. Cranial nerves II-XII grossly intact. Motor strength 5/5 in all extremities. Sensory grossly intact. Cerebellar exam normal. Normal gait. Psych: Awake, alert, with orientation to person, place and time. Behavior, mood, and affect are within normal limits. 23:56 Musculoskeletal/extremity: Swelling with tenderness over the lateral malleolus, full range of motion, pulses, motor, sensation intact, compartment soft, no other areas of tenderness.. Vital Signs: 20:38 BP 125 / 92; Pulse 75; Resp 18; Temp 99.6(O); Pulse Ox 100% ; Weight 79.38 kg; Height 5 nj1 ft. 2 in. ; Pain 4/10; 22:00 Pulse 84; Resp 18; Pulse Ox 96% on R/A; kl 20:38 Body Mass Index 32.01 (79.38 kg, 157.48 cm) nj1 20:38 Pain Scale: Adult nj1 MDM: 20:49 Patient medically screened. rt 23:56 Differential diagnosis: fracture, sprain. Data reviewed: vital signs, nurses notes. rt Independent interpretation of the following test(s) in the Emergency Department X-Ray: My interpretation is No fracture seen on interpretation of the x-ray images. Test considered but Not performed: EKG: Denies syncope, EKG not indicated. Counseling: I had a detailed discussion with the patient and/or guardian regarding the historical points, exam findings, and any diagnostic results supporting the discharge/admit diagnosis, radiology results, the need for outpatient follow up, to return to the emergency department if symptoms worsen or persist or if there are any questions or concerns that arise at home. 02/09 20:50 Order name: Ankle Left 3 View XRAY; Complete Time: 21:27 rt 02/09 21:41 Order name: Crutches; Complete Time: 21:41 rt 02/09 21:41 Order name: Jorge Wrap; Complete Time: 21:41 rt 02/09 21:51 Order name: Walking boot cp Administered Medications: 21:41 Drug: Ketorolac IM 15 mg Route: IM; Site: left deltoid; kl Disposition Summary: 02/09/23 21:41 Discharge Ordered Location: Home rt Problem: new rt Symptoms: have improved rt Condition: Stable rt Diagnosis - Sprain of unspecified ligament of left ankle rt Followup: rt - With: Davide Rome MD - When: 10 - 14 days - Reason: Discharge Instructions: - Discharge Summary Sheet rt - Ankle Sprain rt Forms: - Medication Reconciliation Form rt - Thank You Letter rt - Antibiotic Education rt - Prescription Opioid Use rt - Patient Portal Instructions rt - Leadership Thank You Letter rt Signatures: Dispatcher [employer] Violet Mehta, PATRICIA RN Savage Mitchell PA PA cp Jeffery Patel MD MD rt Francisca Ramirez RN RN nj1
[2023-02-09] MEDS ORDERED: KETOROLAC 30 MG/ML INJ ONE (21:48)
[2023-02-09 22:27] VITALS: BP 125/92; TEMP 99.6
[2023-02-09 22:28] VITALS: O2SAT 96
== END 2023-02-09 22:01 | disposition home or self-care (01) ==
LOC: ER 19:52
DX: S93.402A Sprain of unspecified ligament of left ankle, initial encounter (principal); Z88.0 Allergy status to penicillin; Z88.1 Allergy status to other antibiotic agents; Z88.2 Allergy status to sulfonamides
CPT/HCPCS: 96372; 99284

== ENCOUNTER 2024-02-06 09:16 | Emergency (ER) | payer BC, OTHER ==
[2024-02-06 10:07] LABS: Specific Gravity 1.021 (1.005-1.030)
[2024-02-06] MEDS ORDERED: ONDANSETRON 4 MG/2 ML VIAL ONE (10:07)
[2024-02-06] MEDS ORDERED: NA CHLORIDE 0.9% 1,000 ML ONE ×2 (10:08→11:53)
[2024-02-06 10:11] LABS: Specific Gravity 1.021 (1.005-1.030); Sqamous Epithelial <5 /HPF (None Seen); Urine Bacteria None Seen /HPF (<20); Urine Bilirubin NEGATIVE (Negative); Urine Blood Negative (Negative); Urine Clarity Turbid (Clear); Urine Color Light-Yellow (Yellow); Urine Culture Reflex Order NOT NEEDED; Urine Glucose NEGATIVE (Negative); Urine Ketones 4+ (Over) (Negative); Urine Microscopic Reflex YN ORDER UMIC; Urine Mucus Slight /HPF (None Seen); Urine Nitrite NEGATIVE (Negative); Urine Protein TRACE (Negative); Urine RBC <5 /HPF (None Seen); Urine Urobilinogen Normal (Normal); Urine WBC <5 /HPF (<5); Urine Yeast (Budding) Trace /HPF (None Seen)
[2024-02-06 10:12] LABS: Absolute Lymphocytes (CBC) 0.9 K/uL (0.7-4.9); Absolute Monocytes 0.6 K/uL (0.1-1.3); Absolute Neutrophil 14.7 K/uL (1.8-8.0); Basophils % 0.1 % (0-1.3); Hematocrit 40.2 % (36.0-45.0); Hemoglobin 13.5 g/dL (12.0-15.0); Lymphocytes % 5.4 % (15.3-44.8); MCH 29.5 pg (27.0-35.0); MCHC 33.6 g/dL (32.0-36.0); MCV 87.7 fL (80-100); MPV 9.2 fL (7.6-11.3); Monocytes % 3.9 % (3.3-12.3); Neutrophils % 90.6 % (41.7-73.7); Platelets 386 thou/uL (152-406); RBC Red Blood Cell Count 4.58 M/uL (3.86-4.86)
[2024-02-06 10:40] LABS: Albumin 4.6 g/dL (3.4-5.0); Albumin/Globulin Ratio 1.4 (1.1-1.8); Anion Gap 12.7 mEq/L (5.0-15.0); Bilirubin Total 0.9 mg/dL (0.2-1.0); Globulin 3.4 g/dL (2.3-3.5); Potassium 2.7 mEq/L (3.5-5.1)
--- NOTE | 2024-02-06 10:53 | RAD REPORT ---
EXAM DESCRIPTION: CT - Abdomen Pelvis Wo Contrast - 02/06/2024 10:34 am CLINICAL HISTORY: Abdominal pain. ABD PAIN COMPARISON: Stone Protocol dated 10/26/2020 TECHNIQUE: CT imaging of the abdomen and pelvis was performed without contrast. Solid organ, bowel a nd vascular assessment is limited due to lack of IV and oral contrast. All CT scans are performed using dose optimization technique as appropriate and may include automated exposure control or mA/KV adjustment according to patient size. FINDINGS: The lower lung aggarwal are clear.Small hiatal hernia. The liver, spleen, pancreas, adrenal glands and left kidney are within normal limits for a limited no n-contrast examination.Tiny punctate caliceal calculus in the inferior right kidney. No bowel obstruction, free air, free fluid or abscess. The appendix is normal. The osseous structures are within normal limits.IUD is seen in the endometrial canal. IMPRESSION: No acute intra-abdominal or pelvic findings. Tiny punctate calculus inferior right kidney. A limited non-contrast examination was performed as detailed.
[2024-02-06 11:47] LABS: Blood Morphology Comment NOT SEEN (NOT SEEN); Platelet Estimate ADEQ; White Blood Cell Scan OK (OK)
[2024-02-06] MEDS ORDERED: metroNIDAZOLE 500 MG TABLET ONE (11:52)
[2024-02-06] MEDS ORDERED: CIPROFLOXACIN HCL 500 MG TAB ONE (11:52)
[2024-02-06] MEDS ORDERED: KCL 20 MEQ/100 mL IVPB 100 ML IV ONE (11:53)
--- NOTE | 2024-02-06 14:13 | EDPHYS ---
Physician Documentation [facility] Name: Alem Conte Age: 39 yrs Sex: Female : 1985 Arrival Date: 02/06/2024 Time: 09:16 Bed 8 Private MD: ED Physician Juan Miguel Aguilera HPI: 02/05 10:37 This 39 yrs old Female presents to ER via EMS with complaints of Abdominal Pain, rn Nausea/Vomiting. 10:37 The patient presents to the emergency department with nausea, vomiting, diarrhea, rn abdominal pain. Onset: The symptoms/episode began/occurred yesterday. Possible causes: unknown. The symptoms are aggravated by nothing. The symptoms are alleviated by nothing. Associated signs and symptoms: Pertinent positives: abdominal pain, diarrhea, nausea, vomiting, Pertinent negatives: GI bleeding. Severity of symptoms: At their worst the symptoms were moderate in the emergency department the symptoms are unchanged. The patient has not experienced similar symptoms in the past. The patient has not recently seen a physician. Patient reports diffuse abdominal pain, cramping, associated with nausea/vomiting/diarrhea.. 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 - Hospitalizations: : No recent hospitalization is reported. ROS: 10:40 Constitutional: Positive for chills, negative for fever Cardiovascular: Negative for rn chest pain, palpitations, and edema, Respiratory: Negative for shortness of breath, cough, wheezing, and pleuritic chest pain, Abdomen/GI: Positive for abdominal pain with nausea/vomiting/diarrhea MS/Extremity: Negative for injury and deformity, Skin: Negative for injury, rash, and discoloration, Neuro: Positive for generalized weakness Exam: 10:40 Constitutional: This is a well developed, well nourished patient who is awake, alert, rn seems anxious ENT: Dry mucous membranes Cardiovascular: Regular rate and rhythm. No pulse deficits. Abdomen/GI: Soft, mild epigastric and left upper quadrant tenderness. No rebound or guarding. Negative Mckenzie MS/ Extremity: Pulses equal, no cyanosis. Neuro: Awake and alert, GCS 15 Vital Signs: 09:30 BP 130 / 76; Pulse 77; Resp 16; Pulse Ox 99% on R/A; Weight 65.77 kg; Height 5 ft. 3 iw in. ; 10:16 BP 125 / 85; Pulse 72; Resp 16; Temp 97.8(TE); Pulse Ox 100% on R/A; Pain 0/10; iw 09:30 Body Mass Index 25.69 (65.77 kg, 160.02 cm) iw 10:16 Pain Scale: Adult iw MDM: 09:28 Patient medically screened. rn 14:03 Differential diagnosis: Nonspecific abd pain, gastritis, cholecystitis, pancreatitis, rn appendicitis, diverticulitis, viral gastroenteritis, gastroenteritis. Data reviewed: vital signs, nurses notes, lab test result(s), radiologic studies, CT scan, and as a result, I will discharge patient. Counseling: I had a detailed discussion with the patient and/or guardian regarding the historical points, exam findings, and any diagnostic results supporting the discharge/admit diagnosis, lab results, radiology results, the need for outpatient follow up, to return to the emergency department if symptoms worsen or persist or if there are any questions or concerns that arise at home. Special discussion: Based on the patient's Hx, exam, and Dx evaluation, there is no indication for emergent surgery or inpatient Tx. It is understood by the patient/guardian that if the Sx's persist or worsen they need to return immediately for re-evaluation. I discussed with the patient/guardian in detail that at this point there is no indication for admission to the hospital. It is understood, however, that if the symptoms persist or worsen the patient needs to return immediately for re-evaluation. ED course: CT without acute findings. Patient has punctate kidney stone, history of kidney stones but likely not causing her symptoms today. Will send home with oral antibiotics, pain medication and nausea medication.. 14:11 Care significantly affected by the following chronic conditions: anxiety. rn 02/05 09:35 Order name: CBC with Diff; Complete Time: 14:11 rn 02/05 09:35 Order name: CMP; Complete Time: 11:26 rn 02/05 09:35 Order name: Lipase; Complete Time: 11: rn 02/05 09:35 Order name: Test, Urine; Complete Time: 10:40 rn 02/05 09:35 Order name: Urinalysis w/ reflexes; Complete Time: 10:40 rn 02/05 11:47 Order name: CBC Smear Scan; Complete Time: 14:11 EDNY 02/05 09:55 Order name: Abdomen ; Complete Time: 11:26 EDNY 02/05 09:35 Order name: IV Saline Lock; Complete Time: 10:03 rn 02/05 09:35 Order name: Labs collected and sent; Complete Time: 10:03 rn 02/05 11:37 Order name: PO challenge; Complete Time: 12:21 rn Administered Medications: 10:16 Drug: NS 0.9% IV 1000 ml IV at 1 bolus Per protocol; 1000 mL bolus Route: IV; Rate: 1 iw bolus; Site: left antecubital; 11:30 Follow up: IV Status: Completed infusion iw 10:16 Drug: Ondansetron IVP 4 mg IVP once; over 2 minutes Route: IVP; Site: left antecubital; iw 11:10 Follow up: Response: No adverse reaction; Nausea is decreased iw 12:21 Drug: Potassium Chloride IV 20 mEq IV at calculated rate once; administer over 1-2 iw hours Route: IV; Rate: calculated rate; Site: left antecubital; 14:20 Follow up: IV Status: Completed infusion iw 12:21 Drug: Ciprofloxacin PO 500 mg PO once Route: PO; iw 19:47 Follow up: Response: No adverse reaction iw 12:21 Drug: metroNIDAZOLE PO 500 mg PO once Route: PO; iw 13:00 Follow up: Response: No adverse reaction iw 12:47 Not Given (Other Intervention Used): morphineor iv 4 mg IVP once over 4 mins iw Disposition Summary: 02/06/24 14:12 Discharge Ordered Notes: Location: Home rn Problem: new rn Symptoms: have improved rn Condition: Stable rn Diagnosis - Abdominal pain, unspecified rn - Vomiting rn - Diarrhea, unspecified rn Followup: rn - With: Private Physician - When: As needed - Reason: Recheck today's complaints, Re-evaluation by your physician Discharge Instructions: - Discharge Summary Sheet rn - Abdominal Pain, Adult rn - Diarrhea, Adult rn - Nausea and Vomiting, Adult rn Forms: - Medication Reconciliation Form rn - Antibiotic help desk intern - Prescription Opioid Use rn - Patient Portal Instructions rn - Leadership Thank You Letter rn - Work release form hb Prescriptions: - ondansetron 4 mg Oral Tablet,disintegrating - take 1 tablet ORAL route every 12 hours As needed; 12 tablet; Refills: 0, rn Product Selection Permitted - Flagyl 500 mg Oral Tablet - take 1 tablet ORAL route every 8 hours for 10 days; 30 tablet; Refills: 0, rn Product Selection Permitted - Cipro 500 mg Oral tablet - take 1 tablet ORAL route every 12 hours for 10 days; 20 tablet; Refills: 0, rn Product Selection Permitted - Tramadol 50 mg Oral Tablet - take 1 tablet ORAL route every 8 hours as needed; 12 tablet; Refills: 0, rn Product Selection Permitted Signatures: Dispatcher [employer] Laurie Han RN RN iw Juan Miguel Aguilera MD MD rn clinician: (The following items were deleted from the chart) 09:36 09:36 Abdomen Pelvis W [id number] ordered. MARIA ISABEL NICOLAS
--- NOTE | 2024-02-06 14:13 | ER ---
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 Ebola Screen: No symptoms or risks identified at this time. Risk Assessment: Do you want to hurt yourself or someone else? Patient reports no desire to harm self or others. Onset of symptoms was February 06, 2024. 09:30 Method Of Arrival: EMS: [facility] iw 09:30 Acuity: EVELIO 3 iw 09:30 Coronavirus screen: At this time, the client does not indicate any symptoms associated iw with coronavirus-19. Initial Sepsis Screen: Does the patient meet any 2 criteria? No. Patient's initial sepsis screen is negative. Does the patient have a suspected source of infection? No. Patient's initial sepsis screen is negative. 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 - Hospitalizations: : No recent hospitalization is reported. Screenin:45 [facility] ED Fall Risk Assessment (Adult) History of falling in the last 3 months, iw including since admission No falls in past 3 months (0 pts) Confusion or Disorientation No (0 pts) Intoxicated or Sedated No (0 pts) Impaired Gait No (0 pts) Mobility Assist Device Used No (0 pt) Altered Elimination No (0 pt) Score/Fall Risk Level 0 - 2 = Low Risk. Abuse screen: Denies threats or abuse. Denies injuries from another. Nutritional screening: No deficits noted. Tuberculosis screening: No symptoms or risk factors identified. Assessment: 09:44 General: Appears in no apparent distress. Behavior is calm, cooperative. Pain: iw Complains of pain in abdomen. Neuro: Level of Consciousness is awake, alert, obeys commands, Oriented to person, place, time, situation, Moves all extremities. Full function. Cardiovascular: Patient's skin is warm and dry. Respiratory: Respiratory effort is even, unlabored, Respiratory pattern is regular, symmetrical. GI: Abdomen is non-distended, Reports upper abdominal pain, nausea. GI: Abd is soft X 4 quads. EENT:. Derm: Skin is intact, is healthy with good turgor. Musculoskeletal: Range of motion: intact in all extremities. 10:16 Reassessment: Patient appears in no apparent distress at this time. pt sleeping, iw awakens easily to verbal stimuli, pt states pain is 0/10, awaiting CT, urine has been collected an sent. 12:00 Reassessment: Patient appears in no apparent distress at this time. Patient and/or iw family updated on plan of care and expected duration. Pain level reassessed. Patient is alert, oriented x 3, equal unlabored respirations, skin warm/dry/pink. Vital Signs: 09:30 BP 130 / 76; Pulse 77; Resp 16; Pulse Ox 99% on R/A; Weight 65.77 kg; Height 5 ft. 3 iw in. ; 10:16 BP 125 / 85; Pulse 72; Resp 16; Temp 97.8(TE); Pulse Ox 100% on R/A; Pain 0/10; iw 09:30 Body Mass Index 25.69 (65.77 kg, 160.02 cm) iw 10:16 Pain Scale: Adult iw ED Course: 09:27 Patient arrived in ED. iw 09:28 Juan Miguel Aguilera MD is Attending Physician. rn 09:30 Laurie Navas RN is Primary Nurse. iw 09:32 Triage completed. iw 09:43 Arm band placed on. iw 09:43 Maintain EMS IV. Dressing intact. Good blood return noted. Site clean \T\ dry. Gauge \T\ iw site: 18 LAC. Flushed with 10 mL NS. 09:53 Radiology exam delayed due to test not completed at this time. ls3 10:36 Abdomen In Process Unspecified. EDMS 14:25 No provider procedures requiring assistance completed. IV discontinued, intact, iw bleeding controlled, No redness/swelling at site. Pressure dressing applied. Administered Medications: 10:16 Drug: NS 0.9% IV 1000 ml IV at 1 bolus Per protocol; 1000 mL bolus Route: IV; Rate: 1 iw bolus; Site: left antecubital; 11:30 Follow up: IV Status: Completed infusion iw 10:16 Drug: Ondansetron IVP 4 mg IVP once; over 2 minutes Route: IVP; Site: left antecubital; iw 11:10 Follow up: Response: No adverse reaction; Nausea is decreased iw 12:21 Drug: Potassium Chloride IV 20 mEq IV at calculated rate once; administer over 1-2 iw hours Route: IV; Rate: calculated rate; Site: left antecubital; 14:20 Follow up: IV Status: Completed infusion iw 12:21 Drug: Ciprofloxacin PO 500 mg PO once Route: PO; iw 19:47 Follow up: Response: No adverse reaction iw 12:21 Drug: metroNIDAZOLE PO 500 mg PO once Route: PO; iw 13:00 Follow up: Response: No adverse reaction iw 12:47 Not Given (Other Intervention Used): morphineor iv 4 mg IVP once over 4 mins iw Medication: 09:45 VIS not applicable for this client. iw Outcome: 14:12 Discharge ordered by . rn 14:26 Discharged to home ambulatory, with family, iw 14:26 Condition: good 14:26 Discharge instructions given to patient, family, Instructed on discharge instructions, follow up and referral plans. medication usage, Demonstrated understanding of instructions, follow-up care, medications, Prescriptions given X 4, 14:26 Patient left the ED. iw Signatures: Dispatcher [employer] EDLaurie Bernstein RN RN iw Juan Miguel Aguilera MD MD rn Siler, Lynzie ls3
[2024-02-06 14:45] VITALS: BP 125/85; TEMP 97.8; O2SAT 100
== END 2024-02-06 14:26 | disposition home or self-care (01) ==
LOC: ER 09:16
DX: R10.13 Epigastric pain (principal); R11.10 Vomiting, unspecified; R19.7 Diarrhea, unspecified; Z87.442 Personal history of urinary calculi
CPT/HCPCS: 96365; 96361; 85025; 81001; 36415; 81025; 83690; 80053; 74176; 96375; 99284; 96366; J3480; J2405; J7030 ×2

== ENCOUNTER 2024-02-27 19:41 | Emergency (ER) | payer BC ==
[2024-02-27 20:25] LABS: Absolute Lymphocytes (CBC) 2.7 K/uL (0.7-4.9); Absolute Monocytes 0.5 K/uL (0.1-1.3); Absolute Neutrophil 4.4 K/uL (1.8-8.0); Basophils % 0.5 % (0-1.3); Eosinophils % 0.5 % (0-4.4); Hematocrit 38.4 % (36.0-45.0); Hemoglobin 12.9 g/dL (12.0-15.0); Lymphocytes % 35.6 % (15.3-44.8); MCH 29.8 pg (27.0-35.0); MCHC 33.6 g/dL (32.0-36.0); MCV 88.6 fL (80-100); MPV 9.2 fL (7.6-11.3); Neutrophils % 57.4 % (41.7-73.7); Platelets 338 thou/uL (152-406); RBC Red Blood Cell Count 4.34 M/uL (3.86-4.86); Red Cell Distribution Width 12.4 % (12.1-15.2)
[2024-02-27 20:27] LABS: Specific Gravity 1.015 (1.005-1.030)
[2024-02-27 20:36] LABS: Barbiturates NEGATIVE (NEGATIVE); Benzodiazepines NEGATIVE (NEGATIVE); Cocaine NEGATIVE (NEGATIVE); METHAMPHETAM NEGATIVE (NEGATIVE); Methadone NEGATIVE (NEGATIVE); Opiates NEGATIVE (NEGATIVE); Phencyclidine NEGATIVE (NEGATIVE); THC Cannibis POSITIVE (NEGATIVE)
[2024-02-27] MEDS ORDERED: DIAZEPAM 5 MG TABLET ONE (20:42)
[2024-02-27] MEDS ORDERED: NA CHLORIDE 0.9% 1,000 ML ONE (20:43)
[2024-02-27 20:45] LABS: ALT/SGPT 23 U/L (13-56); Albumin 3.9 g/dL (3.4-5.0); Albumin/Globulin Ratio 1.2 (1.1-1.8); Alkaline Phosphatase 58 U/L (45-117); BUN Blood Urea Nitrogen 10 mg/dL (7-18); Bicarbonate 30 mEq/L (21-32); Bilirubin Total 0.3 mg/dL (0.2-1.0); Globulin 3.2 g/dL (2.3-3.5); Glomerular Filtration Rate 86 ml/min (=/>90); Glucose Level 60 mg/dL (74-106); NT PRO-BNP 53 pg/mL (<125); Protein, Total 7.1 g/dL (6.4-8.2); Sodium Level 143 mEq/L (136-145)
[2024-02-27 20:50] LABS: AST/SGOT < 10 U/L (15-37); Bilirubin Direct < 0.2 mg/dL (0-0.2); Bilirubin Indirect, Calculated 0.1 mg/dL (0.2-0.8); Troponin High Sensitivity < 3.0 pg/mL (<58.9)
--- NOTE | 2024-02-27 21:03 | RAD REPORT ---
EXAM DESCRIPTION: [place] Single View02/27/2024 8:51 pm CLINICAL HISTORY: CHEST PAIN COMPARISON: CHEST SINGLE VIEW dated 12/16/2014 TECHNIQUE: Portable AP view of the chest. FINDINGS: The lungs are clear. No pneumothorax or effusion. The cardiomediastinal contours are unre markable. IMPRESSION: No acute cardiopulmonary process.
[2024-02-27 21:04] LABS: Magnesium 2.5 mg/dL (1.6-2.4); Thyroid Stimulating Hormone 0.767 uIU/mL (0.358-3.740)
[2024-02-27 21:05] LABS: C-Reactive Protein < 2.90 mg/L (<3.00)
[2024-02-27] MEDS ORDERED: METOCLOPRAMIDE 10 MG/2mL INJ ONE (21:08)
[2024-02-27] MEDS ORDERED: KETOROLAC 30 MG/ML INJ ONE (21:08)
--- NOTE | 2024-02-27 21:41 | ER ---
Nurse's Notes [facility] Name: Alem Conte Age: 39 yrs Sex: Female : 1985 Arrival Date: 02/27/2024 Time: 19:41 Bed 20 Private MD: Diagnosis: Palpitations;Acute anxiety attack Presentation: 02/26 20:11 Chief complaint: Patient states: "When I stand up I feel faint. I thought maybe I was vc1 dehydrated so I went to [facility] today and got a hydration pack but afterwards I was laying down and my heart rate was 158 BPM.". Coronavirus screen: Vaccine status: Patient reports receiving the 2nd dose of the covid vaccine. Client denies travel out of the [place] in the last 14 days. At this time, the client does not indicate any symptoms associated with coronavirus-19. Ebola Screen: Patient negative for fever greater than or equal to 101.5 degrees Fahrenheit, and additional compatible Ebola Virus Disease symptoms Patient denies exposure to infectious person. Patient denies travel to an Ebola-affected area in the 21 days before illness onset. No symptoms or risks identified at this time. Initial Sepsis Screen: Does the patient meet any 2 criteria? No. Patient's initial sepsis screen is negative. Does the patient have a suspected source of infection? No. Patient's initial sepsis screen is negative. Risk Assessment: Do you want to hurt yourself or someone else? Patient reports no desire to harm self or others. Onset of symptoms is unknown. Care prior to arrival: Hydration IV from [facility]. Activity prior to arrival: None. Mechanism of Injury: No Mechanism of Injury. Transition of care: patient was not received from another setting of care. 20:11 Method Of Arrival: Ambulatory vc1 20:11 Acuity: EVELIO 3 vc1 Triage Assessment: 20:14 General: Appears in no apparent distress. uncomfortable, Behavior is cooperative, vc1 anxious. Pain: Denies pain. EENT: pale eyelids. Neuro: Level of Consciousness is awake, alert, obeys commands, Oriented to person, place, time, situation, Appropriate for age. Cardiovascular: Reports fatigue, syncope, heart racing. Capillary refill < 3 seconds Patient's skin is warm and dry. Respiratory: Airway is patent Respiratory effort is even, labored. GI: No deficits noted. No signs and/or symptoms were reported involving the gastrointestinal system. : No deficits noted. No signs and/or symptoms were reported regarding the genitourinary system. Derm: Skin is intact, is healthy with good turgor, Skin is dry, Skin is normal. Musculoskeletal: Circulation, motion, and sensation intact. Range of motion: intact in all extremities. 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 - Infectious Disease History:: Denies. - Social history:: Smoking status: Reported history of juuling and/or vaping. - Family history:: not pertinent. Screenin:21 [facility] ED Fall Risk Assessment (Adult) History of falling in the last 3 months, cp4 including since admission No falls in past 3 months (0 pts) Confusion or Disorientation No (0 pts) Intoxicated or Sedated No (0 pts) Impaired Gait No (0 pts) Mobility Assist Device Used No (0 pt) Altered Elimination No (0 pt) Score/Fall Risk Level 0 - 2 = Low Risk Oriented to surroundings, Maintained a safe environment, Assessed \\T\\ reinforced patient's understanding of fall precautions, Hourly rounding (assess needs \\T\\ fall precautionary measures) done. Abuse screen: Denies threats or abuse. Nutritional screening: No deficits noted. Tuberculosis screening: No symptoms or risk factors identified. Assessment: 20:21 General: Appears in no apparent distress. comfortable, Behavior is calm, cooperative, cp4 appropriate for age. Pain: Denies pain. Pain does not radiate. Pain began No pain. Neuro: Level of Consciousness is awake, alert, obeys commands, Oriented to person, place, time, situation. Cardiovascular: Patient's skin is warm and dry. Rhythm is sinus rhythm. Respiratory: Airway is patent Respiratory effort is even, unlabored. GI: No signs and/or symptoms were reported involving the gastrointestinal system. : No signs and/or symptoms were reported regarding the genitourinary system. EENT: No signs and/or symptoms were reported regarding the EENT system. Derm: No signs and/or symptoms reported regarding the dermatologic system. Musculoskeletal: No signs and/or symptoms reported regarding the musculoskeletal system. Vital Signs: 20:11 BP 119 / 84; Pulse 102; Resp 18; Temp 97; Pulse Ox 98% ; Weight 61.23 kg; Height 5 ft. vc1 3 in. ; Pain 0/10; 21:00 BP 121 / 84; Pulse 81; Resp 18; Pulse Ox 100% ; cp4 22:00 BP 117 / 89; Pulse 71; Resp 18; Pulse Ox 100% ; cp4 20:11 Body Mass Index 23.91 (61.23 kg, 160.02 cm) vc1 20:11 Pain Scale: Adult vc1 Eliza Coma Score: 21:47 Eye Response: spontaneous(4). Motor Response: obeys commands(6). Verbal Response: sp4 oriented(5). Total: 15. ED Course: 19:44 Patient arrived in ED. jj6 20:04 Rudy Luevano MD is Attending Physician. sp4 20:08 Mirella Mo is Primary Nurse. cp4 20:14 Triage completed. vc1 20:14 Arm band placed on right wrist. vc1 20:20 Urine Drug Screen Sent. cp4 20:20 Basic Metabolic Panel Sent. cp4 20:20 CBC with Diff Sent. cp4 20:20 LFT's Sent. cp4 20:20 NT PRO-BNP Sent. cp4 20:20 Troponin HS Sent. cp4 20:21 Placed in gown. Bed in low position. Call light in reach. Side rails up X2. Client cp4 placed on continuous cardiac and pulse oximetry monitoring. NIBP monitoring applied. manager english on. Pulse ox on. NIBP on. 20:21 Inserted saline lock: 20 gauge in right antecubital area, using aseptic technique. cp4 Blood collected. Flushed with 10 mL NS. Patient maintains SpO2 saturation greater than 95% on room air. 20:35 EKG done, by ED staff, reviewed by Rudy Luevano MD. ty 20:52 Chest Single View XRAY In Process Unspecified. EDMS 21:39 Milan James MD is Referral Physician. sp4 22:19 Provided Education on: palpitations. cp4 22:19 No provider procedures requiring assistance completed. intact, bleeding controlled, No cp4 redness/swelling at site. Pressure dressing applied. Administered Medications: 20:57 Drug: NS 0.9% IV 1000 ml IV at 1 bolus Per protocol; 1000 mL bolus Route: IV; Rate: 1 cp4 bolus; Site: right antecubital; 22:16 Follow up: Response: No adverse reaction; IV Status: Completed infusion; IV Intake: cp4 1000ml 21:11 Drug: Ketorolac IVP 30 mg IVP once Route: IVP; Site: right antecubital; cp4 21:40 Follow up: Response: No adverse reaction; Pain is decreased cp4 21:11 Drug: metoCLOPramide IVP 10 mg IVP once; over 1 to 2 minutes Route: IVP; Site: right cp4 antecubital; 21:40 Follow up: Response: No adverse reaction cp4 21:12 Drug: Diazepam PO 5 mg PO once Route: PO; cp4 21:40 Follow up: Response: No adverse reaction cp4 Medication: 20:21 VIS not applicable for this client. cp4 Intake: 22:16 IV: 1000ml; Total: 1000ml. cp4 Outcome: 21:40 Discharge ordered by . sp4 22:19 Discharged to home ambulatory, cp4 22:19 Condition: stable 22:19 Discharge instructions given to patient, Instructed on discharge instructions, follow up and referral plans. medication usage, Demonstrated understanding of instructions, follow-up care, medications, Prescriptions given X 1, 22:21 Patient left the ED. cp4 Signatures: Dispatcher [employer] EDMS Yaneli [id number] Rosario Nix RN RN Rudy Ellington MD MD sp4 Mirella Mo cp4 Mohan Pettit Corrections: (The following items were deleted from the chart) 20:28 20:20 TEST, SERUM+SC.LAB.BRZ drawn and sent. cp4 EDMS
--- NOTE | 2024-02-27 21:41 | EDPHYS ---
Physician Documentation [facility] Name: Alem Conte Age: 39 yrs Sex: Female : 1985 Arrival Date: 02/27/2024 Time: 19:41 Bed 20 Private MD: ED Physician Rudy Luevano HPI: 02/26 20:04 This 39 yrs old Female presents to ER via Unassigned with complaints of sp4 Irregular Pulse. 21:47 Presents with complaint of racing heart and anxiety starting at 10 AM this morning with sp4 a maximum heart rate evaluation 158 bpm as measured by her pulse oximeter at home. Patient has history of depression she takes Lexapro 20 mg daily Wellbutrin 150 mg daily and also states she vapes marijuana periodically. 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 - Infectious Disease History:: Denies. - Social history:: Smoking status: Reported history of juuling and/or vaping. - Family history:: not pertinent. ROS: 21:47 Constitutional: Negative for fever, chills, and weight loss, positive palpitations and sp4 anxiety. 21:47 All other systems are negative, Exam: 21:32 Constitutional: This is a well developed, well nourished patient who is awake, alert, sp4 and in no acute distress. Head/Face: Normocephalic, atraumatic. Eyes: Pupils equal round and reactive to light, extra-ocular motions intact. Lids and lashes normal. Conjunctiva and sclera are not injected. Cornea within normal limits. Periorbital areas with no swelling, redness, or edema. ENT: Nares patent. No nasal discharge, no septal abnormalities noted. Tympanic membranes are normal and external auditory canals are clear. Oropharynx with no redness, swelling, or masses, exudates, or evidence of obstruction, uvula midline. Mucous membranes moist. Neck: Trachea midline, no thyromegaly or masses palpated, and no cervical lymphadenopathy. Supple, full range of motion without nuchal rigidity, or vertebral point tenderness. Chest/axilla: Normal chest wall appearance and motion. Nontender with no deformity. No lesions are appreciated. Cardiovascular: Regular rate and rhythm with a normal S1 and S2. No gallops, murmurs, or rubs. Normal PMI, no JVD. No pulse deficits. Respiratory: Lungs have equal breath sounds bilaterally, clear to auscultation and percussion. No rales, rhonchi or wheezes noted. No increased work of breathing, no retractions or nasal flaring. Abdomen/GI: Soft, with normal bowel sounds. No distension or tympany. No guarding or rebound. No evidence of tenderness throughout. Back: No spinal tenderness. No costovertebral tenderness. Skin: Warm, dry with normal turgor. Normal color with no rashes, no lesions, and no evidence of cellulitis. MS/ Extremity: Pulses equal, no cyanosis. Neurovascular intact. Full, normal range of motion. Neuro: Awake and alert, GCS 15, oriented to person, place, time, and situation. Cranial nerves II-XII grossly intact. Motor strength 5/5 in all extremities. Sensory grossly intact. Psych: Awake, alert, with orientation to person, place and time. Behavior, mood, and affect are within normal limits 21:32 ECG was reviewed by the Attending Physician. EKG at 2030 and we have a normal sinus rhythm at rate of 72 Vital Signs: 20:11 BP 119 / 84; Pulse 102; Resp 18; Temp 97; Pulse Ox 98% ; Weight 61.23 kg; Height 5 ft. vc1 3 in. ; Pain 0/10; 21:00 BP 121 / 84; Pulse 81; Resp 18; Pulse Ox 100% ; cp4 22:00 BP 117 / 89; Pulse 71; Resp 18; Pulse Ox 100% ; cp4 20:11 Body Mass Index 23.91 (61.23 kg, 160.02 cm) vc1 20:11 Pain Scale: Adult vc1 [place] Coma Score: 21:47 Eye Response: spontaneous(4). Motor Response: obeys commands(6). Verbal Response: sp4 oriented(5). Total: 15. MDM: 20:15 Patient medically screened. sp4 21:47 Differential diagnosis: acute pericarditis, anxiety, chest wall pain, cholecystitis, sp4 Cholelithiasis costochondritis. Data reviewed: vital signs, nurses notes, radiologic studies, plain films. ED course: EXAM DESCRIPTION: Jewel Single View02/27/2024 8:51 pm CLINICAL HISTORY: CHEST PAIN COMPARISON: CHEST SINGLE VIEW dated 12/16/2014 TECHNIQUE: Portable AP view of the chest. FINDINGS: The lungs are clear. No pneumothorax or effusion. The cardiomediastinal contours are unremarkable. IMPRESSION: No acute cardiopulmonary process. . 21:57 ED course: Anxiety possibly secondary to cannabis use. Patient was advised to 4 discontinue use of cannabis and also see Dr. James with cardiology for Holter monitor test. 02/26 20:04 Order name: Basic Metabolic Panel; Complete Time: 20:53 sp4 02/26 20:04 Order name: CBC with Diff; Complete Time: 20:53 sp4 02/26 20:04 Order name: LFT's; Complete Time: 20:53 sp4 02/26 20:04 Order name: NT PRO-BNP; Complete Time: 20:53 sp4 02/26 20:04 Order name: Troponin HS; Complete Time: 20:53 sp4 02/26 20:05 Order name: Urine Drug Screen; Complete Time: 20:53 sp4 02/26 20:25 Order name: TSH; Complete Time: 21:31 sp4 02/26 20:25 Order name: T4 Free; Complete Time: 21:31 sp4 02/26 20:26 Order name: Hemoglobin A1c 4 02/26 20:26 Order name: CRP; Complete Time: 21:31 sp4 02/26 20:26 Order name: Magnesium; Complete Time: 21:31 sp4 02/26 20:27 Order name: Test, Urine; Complete Time: 20:53 EDMS 02/26 20:25 Order name: Chest Single View XRAY; Complete Time: 21:31 4 02/26 20:04 Order name: Cardiac monitoring; Complete Time: 20:20 sp4 02/26 20:04 Order name: EKG - Nurse/Tech; Complete Time: 20:27 sp4 02/26 20:04 Order name: IV Saline Lock; Complete Time: 20:20 sp4 02/26 20:04 Order name: Labs collected and sent; Complete Time: 20:20 sp4 02/26 20:04 Order name: O2 Per Protocol; Complete Time: 20:20 sp4 02/26 20:04 Order name: O2 Sat Monitoring; Complete Time: 20:20 sp4 EC:32 Rate is 72 beats/min. Rhythm is regular, Normal Sinus Rhythm. QRS [place] is Normal. [place] sp4 interval is normal. QRS interval is normal. QT interval is normal. No Q waves. T waves are Normal. No ST changes noted. Clinical impression: Normal ECG. Interpreted by me. Reviewed by me. Administered Medications: 20:57 Drug: NS 0.9% IV 1000 ml IV at 1 bolus Per protocol; 1000 mL bolus Route: IV; Rate: 1 cp4 bolus; Site: right antecubital; 22:16 Follow up: Response: No adverse reaction; IV Status: Completed infusion; IV Intake: cp4 1000ml 21:11 Drug: Ketorolac IVP 30 mg IVP once Route: IVP; Site: right antecubital; cp4 21:40 Follow up: Response: No adverse reaction; Pain is decreased cp4 21:11 Drug: metoCLOPramide IVP 10 mg IVP once; over 1 to 2 minutes Route: IVP; Site: right cp4 antecubital; 21:40 Follow up: Response: No adverse reaction cp4 21:12 Drug: Diazepam PO 5 mg PO once Route: PO; cp4 21:40 Follow up: Response: No adverse reaction cp4 Disposition Summary: 02/27/24 21:40 Discharge Ordered Notes: Location: Home sp4 Problem: new sp4 Symptoms: have improved sp4 Condition: Stable sp4 Diagnosis - Palpitations sp4 - Acute anxiety attack sp4 Followup: sp4 - With: Milan James MD - When: 7 - 10 days - Reason: Recheck today's complaints Discharge Instructions: - Discharge Summary Sheet sp4 - Palpitations, [id number] sp4 Forms: - Patient Portal Instructions sp4 Prescriptions: - Valium 5 mg Oral tablet - take 1 tablet ORAL route once daily As needed PRN anxiety and panic; 20 tablet; sp4 Refills: 0, Product Selection Permitted Signatures: Dispatcher [employer] EDRosario Nolasco RN RN vc1 Rudy Luevano MD MD sp4 Mirella Mo cp4 Corrections: (The following items were deleted from the chart) 20:05 20:05 BASIC METABOLIC PANEL+C.LAB.BRZ ordered. EDMS EDMS 20:05 20:05 CBC+H.LAB.BRZ ordered. EDMS EDMS 20:05 20:05 HEPATIC FUNCTION+C.LAB.BRZ ordered. EDMS EDMS 20:05 20:05 PROBNP+C.LAB.BRZ ordered. EDMS EDMS 20:05 20:05 Troponin High Sensitivity+C.LAB.BRZ ordered. EDMS EDMS 20:05 20:05 URINE DRUG SCREEN+UC.LAB.BRZ ordered. EDMS EDMS 20:26 20:26 Chest Single View+RAD.RAD.BRZ ordered. EDMS EDMS 20:28 20:05 TEST, SERUM+SC.LAB.BRZ ordered. EDMS EDMS
[2024-02-27 22:57] VITALS: TEMP 97
[2024-02-27 22:59] VITALS: O2SAT 100
[2024-02-27 23:01] VITALS: BP 117/89
--- NOTE | 2024-03-01 17:06 | EKG ---
Test Date: 2024-02-27 Test Time: 20:31:11 Tractor Expert: PILI MEASUREMENT RESULTS: Intervals: Rate: 72 CT: 158 QRSD: 74 QT: 378 QTc: 413 [place]: P: 73 CT: 158 QRS: 74 T: 69 INTERPRETIVE STATEMENTS: Normal sinus rhythm with sinus arrhythmia Normal ECG No previous ECG available for comparison Electronically Signed On 03-01-24 17:00:38 CDT by Milan James
== END 2024-02-27 22:21 | disposition home or self-care (01) ==
LOC: ER 19:41
DX: F41.0 Panic disorder [episodic paroxysmal anxiety] (principal)
CPT/HCPCS: 96361; 93005; 85025; 80048; 36415; 83735; 81025; 80076; 84443; 84484; 84439; 83880; 80307; 86140; 71045; 96375; 96374; 99285; J2765; J7030

== ENCOUNTER 2025-01-26 22:35 | Emergency (ER) | payer BC ==
[2025-01-26] MEDS ORDERED: ACETAMINOPHEN 500 MG TAB ONE (23:28)
--- NOTE | 2025-01-27 01:22 | RAD REPORT ---
EXAM: US , Limited CLINICAL HISTORY: The patient is 40 years old and is Female; decreased movement TECHNIQUE: Real-time limited ultrasound of the maternal uterus with image documentation. COMPARISON: No relevant prior studies available. FINDINGS: GESTATIONAL AGE: Gestational age is 25 weeks 1 day based on a single femur length of 4.6 cm. POSITION: presentation is cephalic. HEART RATE: heart rate is 157 bpm. PLACENTA: The placenta is anterior in location. AMNIOTIC FLUID: JERMAINE is 17.0 cm. CERVIX: The cervix is closed measuring 4.0 cm. IMPRESSION: Single IUP at 25 weeks 1 day with heart rate 157 bpm. Electronically signed by: Nury Jean-Baptiste MD 01/27/2025 01:14 AM CDT RP Due to temporary technical issues with the PACS/Foxword[employer] reporting system, reports are being robert d by the in-house radiologist without review as a courtesy to ensure prompt reporting the interpreting radiologist is fully responsible for the content of the report. Transcribed Date/Time: 01/27/2025 1:22 AM
--- NOTE | 2025-01-27 01:26 | EDPHYS ---
Physician Documentation [facility] Name: Alem Conte Age: 40 yrs Sex: Female : 1985 Arrival Date: 01/26/2025 Time: 22:35 Bed 1 Private MD: ED Physician Juan Miguel Aguilera HPI: 01/26 23:07 This 40 yrs old Female presents to ER via Ambulatory with complaints of DECREASED cr8 MOVEMENT. 23:07 Patient is a 40-year-old female reports being 26 weeks comes emergency room cr8 for decreased movement. She is a G1, P4 AB 3 reports he last felt the baby kick at 5:30 AM this morning. Denies any abdominal pain vaginal discharge gush of fluids or vaginal bleeding.. 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 - Infectious Disease History:: Denies. - Social history:: Smoking status: Patient denies any tobacco usage or history of. ROS: 23:07 Constitutional: as per HPI cr8 Exam: 23:07 Constitutional: This is a well developed, well nourished patient who is awake, alert, cr8 and in no acute distress. Cardiovascular: Regular rate and rhythm with a normal S1 and S2. No gallops, murmurs, or rubs. Abdomen/GI: Soft, non-tender, with normal bowel sounds. No distension. No guarding or rebound. Gravid abdomen Skin: Warm, dry with normal turgor. Normal color with no rashes, no lesions, and no evidence of cellulitis. MS/ Extremity: Pulses equal, no cyanosis. Neurovascular intact. Full, normal range of motion. Neuro: Awake and alert, GCS 15, oriented to person, place, time, and situation. Cranial nerves II-XII grossly intact. Motor strength 5/5 in all extremities. Sensory grossly intact. Vital Signs: 22:50 BP 175 / 79; Pulse 113; Resp 18; Temp 98; Pulse Ox 100% ; Weight 83.91 kg; Height 5 ft. cp4 2 in. ; Pain 0/10; 01/27 01:31 BP 143 / 77; Pulse 92; Resp 17 S; Pulse Ox 100% on R/A; Pain 0/10; lg3 01/26 22:50 Body Mass Index 33.84 (83.91 kg, 157.48 cm) cp4 01/26 22:50 Pain Scale: Adult cp4 01/27 01:31 Pain Scale: Adult lg3 MDM: 01/26 22:41 Medical Screening Exam initiated cr8 01/27 01:24 Data reviewed: vital signs, nurses notes, radiologic studies, ultrasound. cr8 01:29 ED course: Patient came in reported decreased movements. Considered demise, cr8 missed , decreased movement. We went ahead and ordered an ultrasound to evaluate activity and for any other abnormalities. The ultrasound came back unremarkable. heart tones during the evaluation was 147. Initially she was hypertensive so was considered preeclampsia. On reevaluation her systolic was 130. She has no evidence of peripheral edema at this time do not suspect preeclampsia. Considered other emergent conditions but on multiple exam she was well-appearing in no acute distress with stable vital signs. Discussed follow-up with her PROJECT CONSTRUCTION MANAGER tomorrow and strict return precautions. She verbalized understand was agreeable.. 01/26 22:48 Order name: US OB Limited cr8 01/26 22:48 Order name: FHT's; Complete Time: 22:57 cr8 Administered Medications: 01/26 23:35 Drug: Acetaminophen PO 1000 mg PO once Route: PO; bm8 01/27 01:35 Follow up: Response: No adverse reaction lg3 Disposition: 01:47 Co-signature as Attending Physician, Juan Miguel Aguilera MD I reviewed the patient's care rn provided by the Advanced Practice Provider and agree with the diagnosis and treatment plan. Disposition Summary: 01/27/25 01:25 Discharge Ordered Notes: Location: Home cr8 Condition: Stable cr8 Diagnosis - 26 weeks gestation of cr8 - Decreased movements cr8 Followup: cr8 - With: Private Physician - When: Tomorrow - Reason: Continuance of care Followup: cr8 - With: Emergency Department - When: As needed - Reason: If symptoms return, Worsening of condition Discharge Instructions: - Discharge Summary Sheet cr8 - Second Trimester of cr8 - Warning Signs During cr8 Forms: - Medication Reconciliation Form cr8 - Patient Portal Instructions cr8 - Leadership Thank You Letter cr8 Signatures: Dispatcher [employer] EDJuan Miguel Berger MD MD rn Potter, Christina cp4 Paco Lockhart RN RN bm8 Carson Baez NP SLOT TAG INSERTER [email or web address] Vanessa Duff RN lg3 Corrections: (The following items were deleted from the chart) 01:30 0806 23:07 Constitutional: This is a well developed, well nourished patient who is cr8 awake, alert, and in no acute distress. Abdomen/GI: Soft, non-tender, with normal bowel sounds. No distension. No guarding or rebound. cr8
--- NOTE | 2025-01-27 01:26 | ER ---
Nurse's Notes [facility] Name: Alem Conte Age: 40 yrs Sex: Female : 1985 Arrival Date: 01/26/2025 Time: 22:35 Bed 1 Private MD: Diagnosis: 26 weeks gestation of ;Decreased movements Presentation: 01/26 22:50 Chief complaint: Patient states: decreased movement since this morning. cp4 Coronavirus screen: Vaccine status: Patient reports receiving the 2nd dose of the covid vaccine. Client denies travel out of the [place] in the last 14 days. At this time, the client does not indicate any symptoms associated with coronavirus-19. Ebola Screen: Patient negative for fever greater than or equal to 101.5 degrees Fahrenheit, and additional compatible Ebola Virus Disease symptoms Patient denies exposure to infectious person. Patient denies travel to an Ebola-affected area in the 21 days before illness onset. No symptoms or risks identified at this time. Initial Sepsis Screen: Does the patient meet any 2 criteria? No. Patient's initial sepsis screen is negative. Does the patient have a suspected source of infection? No. Patient's initial sepsis screen is negative. Risk Assessment: Do you want to hurt yourself or someone else? Patient reports no desire to harm self or others. Onset of symptoms was January 26, 2025. 22:50 Method Of Arrival: Ambulatory cp4 22:50 Acuity: EVELIO 3 cp4 Triage Assessment: 22:52 General: Appears in no apparent distress. comfortable, Behavior is calm, cooperative, cp4 appropriate for age. Pain: Denies pain. RN DERMATOLOGY: 22:52 4, Full Term 1, 2, Living 1, Verified cp4 Historical: - Allergies: 22:52 Amoxicillin; cp4 22:52 PENICILLINS; cp4 22:52 Sulfa (Sulfonamide Antibiotics); cp4 - PMHx: 22:52 Anxiety; Kidney stones; cp4 - PSHx: 22:52 Kidney surgery; section; cp4 - Immunization history:: Adult Immunizations up to date. - Infectious Disease History:: Denies. - Social history:: Smoking status: Patient denies any tobacco usage or history of. Screenin:55 [facility] ED Fall Risk Assessment (Adult) History of falling in the last 3 months, lg3 including since admission No falls in past 3 months (0 pts) Confusion or Disorientation No (0 pts) Intoxicated or Sedated No (0 pts) Impaired Gait No (0 pts) Mobility Assist Device Used No (0 pt) Altered Elimination No (0 pt) Score/Fall Risk Level 0 - 2 = Low Risk Oriented to surroundings, Maintained a safe environment, Educated pt \T\ family on fall prevention, incl call for assistance when getting out of bed, Assessed \T\ reinforced patient's understanding of fall precautions. Abuse screen: Denies threats or abuse. Denies injuries from another. Nutritional screening: No deficits noted. Tuberculosis screening: No symptoms or risk factors identified. Assessment: 22:55 General: Appears in no apparent distress. comfortable, Behavior is cooperative, lg3 anxious. Pain: Denies pain. Neuro: No deficits noted. Babb Agitation-Sedation Scale (RASS): 0 - Alert and Calm Level of Consciousness is awake, alert, obeys commands, Oriented to person, place, time, situation. Cardiovascular: No deficits noted. Denies chest pain, shortness of breath, Heart tones S1 S2 present Capillary refill < 3 seconds Clubbing of nail beds is absent JVD is absent Patient's skin is warm and dry. Respiratory: No deficits noted. Airway is patent Respiratory effort is even, unlabored, Respiratory pattern is regular, symmetrical, Breath sounds are clear bilaterally. GI: Abdomen is round non-distended. : No signs and/or symptoms were reported regarding the genitourinary system. EENT: No deficits noted. No signs and/or symptoms were reported regarding the EENT system. Derm: No deficits noted. No signs and/or symptoms reported regarding the dermatologic system. Skin is intact, is healthy with good turgor, Skin is dry, Skin is normal, Skin temperature is warm. Musculoskeletal: No deficits noted. No signs and/or symptoms reported regarding the musculoskeletal system. Circulation, motion, and sensation intact. Range of motion: intact in all extremities. 01/27 01:31 Reassessment: Patient appears in no apparent distress at this time. No changes from lg3 previously documented assessment. Patient and/or family updated on plan of care and expected duration. Pain level reassessed. Patient is alert, oriented x 3, equal unlabored respirations, skin warm/dry/pink. Patient denies pain at this time. Vital Signs: 01/26 22:50 BP 175 / 79; Pulse 113; Resp 18; Temp 98; Pulse Ox 100% ; Weight 83.91 kg; Height 5 ft. cp4 2 in. ; Pain 0/10; 01/27 01:31 BP 143 / 77; Pulse 92; Resp 17 S; Pulse Ox 100% on R/A; Pain 0/10; lg3 01/26 22:50 Body Mass Index 33.84 (83.91 kg, 157.48 cm) cp4 01/26 22:50 Pain Scale: Adult cp4 08 01:31 Pain Scale: Adult lg3 Vitals: 01/26 22:57 Heart Tones 144. lg3 ED Course: 22:39 Patient arrived in ED. gm2 22:39 Carson Baez NP is PHCP. cr8 22:39 Juan Miguel Aguilera MD is Attending Physician. cr8 22:47 Vanessa Duff RN is Primary Nurse. lg3 22:52 Triage completed. cp4 22:52 Arm band placed on right wrist. Patient placed in waiting room. cp4 22:55 Patient has correct armband on for positive identification. Placed in gown. Bed in low lg3 position. Call light in reach. Side rails up X 1. Client placed on continuous cardiac and pulse oximetry monitoring. NIBP monitoring applied. Door closed. Noise minimized. Warm blanket given. Pillow given. Family accompanied patient. 23:14 US OB Limited In Process Unspecified. EDMS 01/27 01:31 No provider procedures requiring assistance completed. Patient did not have IV access lg3 during this emergency room visit. Administered Medications: 01/26 23:35 Drug: Acetaminophen PO 1000 mg PO once Route: PO; bm8 01/27 01:35 Follow up: Response: No adverse reaction lg3 Medication: 01/26 22:55 VIS not applicable for this client. lg3 Outcome: 01/27 01:25 Discharge ordered by . cr8 01:31 Discharged to home ambulatory, with significant other, lg3 01:31 Condition: stable 01:31 Discharge instructions given to patient, Instructed on discharge instructions, follow up and referral plans. Demonstrated understanding of instructions, follow-up care, 01:35 Patient left the ED. lg3 Signatures: Dispatcher [employer] EDGA Vanessa Duff RN RN lg3 Mirella Mo cp4 Alvina Escobar gm2 Paco Lockhart, PATRICIA RN bm8 Carson Baez, DOCUMENT MANAGER DOCUMENT MANAGER cr8
[2025-01-27 01:42] VITALS: TEMP 98; O2SAT 100
[2025-01-27 01:43] VITALS: BP 143/77
== END 2025-01-27 01:35 | disposition home or self-care (01) ==
LOC: ER 22:35
DX: O36.8130 Decreased fetal movements, third trimester, not applicable or unspecified (principal); Z3A.26 26 weeks gestation of pregnancy
CPT/HCPCS: 76815; 99284